=== PATIENT | male | born 1945 | race Caucasian/White ===

== ENCOUNTER 2016-10-10 13:31 | Emergency (ER) | payer MEDICARE ==
--- NOTE | 2016-10-10 14:20 | ER Document Report ---
ED Medical Screen (RME) - General Chief Complaint: General Weakness Stated Complaint: WEAKNESS Mode of Arrival: Ambulatory Information source: Patient, Friend TRAVEL OUTSIDE OF THE [place] IN LAST 30 DAYS: No - HPI Onset: Other - 2 WEEKS Onset/Duration: Gradual Context: SUDDENLY STOPPED ALL OF HIS MEDS. Quality of pain: No pain - DENIES Associated Symptoms: Weakness, Other - VERY POOR APPETITE, SLEEPS A LOT, FATIGUES VERY QUICKLY. denies: Chest pain, Cough (productive), Leg swelling, Shortness of breath Exacerbated by: Other - ANY ACTIVITY Similar symptoms previously: No Recently seen / treated by doctor: Yes - THIS PAST WEEK, MEDS RE-STARTED. - Related Data Smoking: Non-smoker Allergies/Adverse Reactions: No Known Allergies Allergy (Verified 02/23/12 07:34) Home Medications: Current Home Medications Donepezil HCl [Aricept 5 mg Tablet] 5 mg PO DAILY 10/10/16 [History] Lovastatin [Mevacor] 20 mg PO DAILY 10/10/16 [History] Past Medical History - General Information source: Patient, Friend - Social History Lives with: Family - Past Medical History Cardiac Medical History: Reports: Hx Hypertension - meds x yrs Denies: Hx Coronary Artery Disease, Hx Heart Attack Pulmonary Medical History: Denies: Hx Asthma, Hx Bronchitis, Hx COPD, Hx Pneumonia Neurological Medical History: Denies: Hx Cerebrovascular Accident, Hx Seizures Endocrine Medical History: Denies: Hx Diabetes Mellitus Type 1, Hx Diabetes Mellitus Type 2 Renal/ Medical History: Denies: Hx Peritoneal Dialysis Malignancy Medical History: Reports None Musculoskeltal Medical History: Denies Hx Arthritis Psychiatric Medical History: Reports: Hx Dementia Past Surgical History: Reports: Hx Cardiac Surgery - valve replacement - Immunizations Hx Diphtheria, Pertussis, Tetanus Vaccination: No Review of Systems - Review of Systems Constitutional: See HPI EENT: No symptoms reported Cardiovascular: See HPI Respiratory: No symptoms reported Gastrointestinal: See HPI, Poor appetite, Poor fluid intake Musculoskeletal: No symptoms reported Physical Exam - Vital signs Vitals: Temp Pulse Resp BP Pulse Ox 98.2 F 93 16 128/73 H 93 10/10/16 13:36 10/10/16 13:36 10/10/16 13:36 10/10/16 13:36 10/10/16 13:36 Interpretation: Normal - General General appearance: Appears well, Alert In distress: None - HEENT Head: Normocephalic Eyes: Normal. No: Pale conjunctiva Conjunctiva: Normal Ears: Normal Nasal: Normal Mouth/Lips: Normal Mucous membranes: Normal Pharynx: Normal Neck: Normal - Respiratory Respiratory status: No respiratory distress - Cardiovascular Rhythm: Regular - Abdominal Inspection: Normal Distension: No distension - Extremities General upper extremity: Normal inspection General lower extremity: Normal inspection. No: Tender, Edema - Neurological Neuro grossly intact: Yes Cognition: Normal Orientation: AAOx4 - Psychological Associated symptoms: Normal affect, Normal mood - Skin Skin Temperature: Warm Skin Moisture: Dry Skin Color: Normal Skin Turgor: Elastic Course - Vital Signs Vital signs: Temp Pulse Resp BP Pulse Ox 97.8 F 93 16 156/72 H 94 10/10/16 19:39 10/10/16 13:36 10/10/16 19:39 10/10/16 19:39 10/10/16 19:39 - Laboratory Result Diagrams: 10/10/16 15:15 10/10/16 15:15 Laboratory results interpreted by me: 10/10/16 10/10/16 10/10/16 14:48 15:15 15:15 WBC 15.5 H Seg Neuts % (Manual) 85 H Lymphocytes % (Manual) 2 L Abs Neuts (Manual) 13.2 H Abs Lymphs (Manual) 0.3 L Abs Monocytes (Manual) 2.0 H Chloride 97 L BUN 31 H Glucose 206 H Magnesium 1.5 L Direct Bilirubin 0.5 H ALT 20 L Creatine Kinase 44 L CK-MB (CK-2) Lipase 327.0 H Urine Protein 100 H Urine Glucose (UA) >=500 H Urine Ketones 20 H Urine Urobilinogen 2.0 H 10/10/16 15:15 WBC Seg Neuts % (Manual) Lymphocytes % (Manual) Abs Neuts (Manual) Abs Lymphs (Manual) Abs Monocytes (Manual) Chloride BUN Glucose Magnesium Direct Bilirubin ALT Creatine Kinase CK-MB (CK-2) 5.15 H Lipase Urine Protein Urine Glucose (UA) Urine Ketones Urine Urobilinogen Doctor's Discharge - Discharge Clinical Impression: pneumonia, hypomagnesemia, pulmonary mass and effusion Condition: Stable Disposition: HOME, SELF-CARE Additional Instructions: take all medications as prescribed keep all follow up appointments return to the nearest emergency department for worsening symptoms or for other medical concerns Prescriptions: Albuterol Sulfate [Ventolin HFA MDI 18 GM] 1 - 2 puff IH Q4H PRN #1 mdi PRN Reason: Levofloxacin [Levaquin 750 mg Tablet] 750 mg PO DAILY #10 tab Forms: Parent Work Note Referrals: OUMOU SALAZAR FNP-C [Primary Care Provider] - Follow up as needed
--- NOTE | 2016-10-10 15:06 | ER Document Report ---
ED General - General Chief Complaint: General Weakness Stated Complaint: WEAKNESS Time seen by provider: 15:05 Mode of Arrival: Ambulatory Information source: Patient Notes: This is a 71-year-old man who presents to the emergency room with increased fatigue, tiredness, decreased energy over the last 2 weeks. Patient does have a history of hypertension, diabetes, dyslipidemia and valve replacement (on Plavix). TRAVEL OUTSIDE OF THE [place] IN LAST 30 DAYS: No - HPI Onset: Just prior to arrival Onset/Duration: Gradual Quality of pain: No pain Severity: None Pain Level: Denies Associated symptoms: None Exacerbated by: Denies Relieved by: Denies Similar symptoms previously: No Recently seen / treated by doctor: No - Related Data Allergies/Adverse Reactions: No Known Allergies Allergy (Verified 02/23/12 07:34) Home Medications: Current Home Medications Donepezil HCl [Aricept 5 mg Tablet] 5 mg PO DAILY 10/10/16 [History] Lovastatin [Mevacor] 20 mg PO DAILY 10/10/16 [History] Past Medical History - General Information source: Patient, Friend - Social History Smoking Status: Never Smoker Cigarette use (# per day): No Chew tobacco use (# tins/day): No Frequency of alcohol use: None Drug Abuse: None Lives with: Family Family History: Reviewed & Not Pertinent Patient has suicidal ideation: No Patient has homicidal ideation: No - Past Medical History Cardiac Medical History: Reports: Hx Hypertension - meds x yrs Denies: Hx Coronary Artery Disease, Hx Heart Attack Pulmonary Medical History: Denies: Hx Asthma, Hx Bronchitis, Hx COPD, Hx Pneumonia Neurological Medical History: Denies: Hx Cerebrovascular Accident, Hx Seizures Endocrine Medical History: Denies: Hx Diabetes Mellitus Type 1, Hx Diabetes Mellitus Type 2 Renal/ Medical History: Denies: Hx Peritoneal Dialysis Malignancy Medical History: Reports None Musculoskeltal Medical History: Denies Hx Arthritis Psychiatric Medical History: Reports: Hx Dementia Past Surgical History: Reports: Hx Cardiac Surgery - valve replacement - Immunizations Hx Diphtheria, Pertussis, Tetanus Vaccination: No Review of Systems - Review of Systems Constitutional: See HPI EENT: No symptoms reported Cardiovascular: No symptoms reported Respiratory: No symptoms reported Gastrointestinal: No symptoms reported Genitourinary: No symptoms reported Male Genitourinary: No symptoms reported Musculoskeletal: No symptoms reported Skin: No symptoms reported Hematologic/Lymphatic: No symptoms reported Neurological/Psychological: See HPI Physical Exam - Vital signs Vitals: Temp Pulse Resp BP Pulse Ox 98.2 F 93 16 128/73 H 93 10/10/16 13:36 10/10/16 13:36 10/10/16 13:36 10/10/16 13:36 10/10/16 13:36 Notes: Physical exam: GENERAL: 71-year-old man, alert, oriented, no acute distress HEAD: Atraumatic, normocephalic. EYES: Pupils equal round and reactive to light, extraocular movements intact, sclera anicteric, conjunctiva are normal. ENT: TMs normal, nares patent, oropharynx clear without exudates. Moist mucous membranes. NECK: Normal range of motion, supple without lymphadenopathy or JVD. LUNGS: Breath sounds clear to auscultation bilaterally and equal. No wheezes rales or rhonchi. HEART: Regular rate and rhythm without murmurs, rubs or gallops. ABDOMEN: Soft, normoactive bowel sounds. No tenderness to palpation. No guarding, no rebound. No masses appreciated. Back: Clear Rectal: Prostate normal size, brown stool, sent for study EXTREMITIES: Normal range of motion, no pitting or edema. No clubbing or cyanosis. NEUROLOGICAL: Cranial nerves II through XII grossly intact. Normal speech, normal gait. PSYCH: Normal mood, normal affect. SKIN: Warm, Dry, normal turgor, no rashes or lesions noted. Course - Vital Signs Vital signs: Temp Pulse Resp BP Pulse Ox 97.8 F 93 16 156/72 H 94 10/10/16 19:39 10/10/16 13:36 10/10/16 19:39 10/10/16 19:39 10/10/16 19:39 - Laboratory Result Diagrams: 10/10/16 15:15 10/10/16 15:15 Laboratory results interpreted by me: 10/10/16 10/10/16 10/10/16 14:48 15:15 15:15 WBC 15.5 H Seg Neuts % (Manual) 85 H Lymphocytes % (Manual) 2 L Abs Neuts (Manual) 13.2 H Abs Lymphs (Manual) 0.3 L Abs Monocytes (Manual) 2.0 H Chloride 97 L BUN 31 H Glucose 206 H Magnesium 1.5 L Direct Bilirubin 0.5 H ALT 20 L Creatine Kinase 44 L CK-MB (CK-2) Lipase 327.0 H Urine Protein 100 H Urine Glucose (UA) >=500 H Urine Ketones 20 H Urine Urobilinogen 2.0 H 10/10/16 15:15 WBC Seg Neuts % (Manual) Lymphocytes % (Manual) Abs Neuts (Manual) Abs Lymphs (Manual) Abs Monocytes (Manual) Chloride BUN Glucose Magnesium Direct Bilirubin ALT Creatine Kinase CK-MB (CK-2) 5.15 H Lipase Urine Protein Urine Glucose (UA) Urine Ketones Urine Urobilinogen - Diagnostic Test Radiology reviewed: Image reviewed, Reports reviewed - CT of the chest shows pleural effusion possible mass - EKG Interpretation by Me Rate: Normal - EKG shows normal sinus rhythm with a ventricular rate of 90, right bundle branch block which is old, no acute ST-T wave changes. Rhythm: NSR Discharge - Discharge Clinical Impression: pneumonia, hypomagnesemia, pulmonary mass and effusion Condition: Stable Disposition: HOME, SELF-CARE Admitting Provider: Hospitalist - Dr. Zelaya Unit Admitted: IMCU Additional Instructions: take all medications as prescribed keep all follow up appointments return to the nearest emergency department for worsening symptoms or for other medical concerns Prescriptions: Albuterol Sulfate [Ventolin HFA MDI 18 GM] 1 - 2 puff IH Q4H PRN #1 mdi PRN Reason: Levofloxacin [Levaquin 750 mg Tablet] 750 mg PO DAILY #10 tab Forms: Parent Work Note Referrals: OUMOU SALAZAR FNP-C [Primary Care Provider] - Follow up as needed
[2016-10-10 15:17] LABS: APPEARANCE,URINE SLIGHTLY-CLOUDY; BILIRUBIN,URINE NEGATIVE (NEGATIVE); GLUCOSE, URINE >=500 mg/dL (NEGATIVE); KETONES,URINE 20 mg/dL (NEGATIVE); LEUKOCYTE ESTERASE,URINE NEGATIVE (NEGATIVE); NITRITE,URINE NEGATIVE (NEGATIVE); PROTEIN,URINE 100 mg/dL (NEGATIVE); URINE SPECIFIC GRAVITY 1.032
[2016-10-10 15:28] LABS: HEMATOCRIT 43.6 % (37.9-51.0); HEMOGLOBIN 14.7 g/dL (13.5-17.0); HGB HCT DIFFERENCE 0.5; MEAN CORPUSCULAR HEMOGLOBIN 30.8 pg (27.0-33.4); MEAN CORPUSCULAR HGB CONC 33.6 g/dL (32.0-36.0); MEAN CORPUSCULAR VOLUME 92 fl (80-97); RED BLOOD COUNT 4.76 10^6/uL (4.35-5.55); RED CELL DISTRIBUTION WIDTH 12.1 % (11.5-14.0); WHITE BLOOD COUNT 15.5 10^3/uL (4.0-10.5)
[2016-10-10 15:46] LABS: ALANINE AMINOTRANSFERASE 20 U/L (21-72); ALBUMIN 3.8 g/dL (3.5-5.0); ALKALINE PHOSPHATASE 102 U/L (38-126); ANION GAP 18 (5-19); ASPARTATE AMINO TRANSFERASE 21 U/L (17-59); BILIRUBIN,DIRECT 0.5 mg/dL (0.0-0.4); BLOOD UREA NITROGEN 31 mg/dL (7-20); CALCIUM 9.8 mg/dL (8.4-10.2); CARBON DIOXIDE 24 mmol/L (22-30); CHLORIDE 97 mmol/L (98-107); CREATINE KINASE 44 U/L (55-170); CREATININE RESULT 1.16 mg/dL (0.52-1.25); GLUCOSE 206 mg/dL (75-110); MAGNESIUM 1.5 mg/dL (1.6-2.3); POTASSIUM 4.9 mmol/L (3.6-5.0); SODIUM 138.5 mmol/L (137-145)
[2016-10-10 15:53] LABS: BASOPHILS % (MANUAL) 0 % (0-2); EOSINOPHILS % (MANUAL) 0 % (0-6); LYMPHOCYTES % (MANUAL) 2 % (13-45); TOTAL CELLS COUNTED 100
[2016-10-10] MEDS ORDERED: NORMAL SALINE 1000 ML 1,000 ML IV PRN (15:57)
[2016-10-10 15:58] LABS: CREATINE KINASE MB 5.15 ng/mL (<4.55)
[2016-10-10 16:00] LABS: TROPONIN I < 0.012 ng/mL
[2016-10-10] MEDS: MAGNESIUM SULFATE/D5W 100 ML IV SCH ×2 (16:29→17:59)
[2016-10-10] MEDS ORDERED: LEVOFLOXACIN 750 MG/D5W RTU 150 ML IV ONE (17:14)
[2016-10-10] MEDS ORDERED: CEFTRIAXONE 1 GM/D5W RTU 50 ML IV ONE (17:15)
--- NOTE | 2016-10-10 18:11 | PDOC CONSULTATION ---
Consultation Consult Date: 10/10/16 Attending physician:: FELIPE LAWTON History of Present Illness Admission Date/PCP: 10/10/16 17:40 ADRIANA LEHMAN History of Present Illness: ARIANA LOVE III is a 71 year old male with a history of hypertension, hyperlipidemia, diabetes mellitus, dementia who presents to the ER on the company of his son with reports of fatigue. Son reports some vague complaints of being tired more than normal and vomiting was approximately for 5 days ago. He has some ongoing dementia and it was realized approximately one month ago that he had not been taking his medications. As such, his son has moved in with him and has been ensuring that he takes his home medications. He's lost approximately 30 pounds in the last year and perhaps 15 pounds within last month. Patient is an unreliable historian and is unable to provide me with much in the way of any history. Currently, patient reports that although feeling tired he has no specific complaint. Past Medical History Cardiac Medical History: Reports: Hypertension - meds x yrs, Heart Murmur, Other - TAVR Denies: Coronary Artery Disease, Myocardial Infarction Pulmonary Medical History: Denies: Asthma, Bronchitis, Chronic Obstructive Pulmonary Disease (COPD), Pneumonia Neurological Medical History: Denies: Seizures Endocrine Medical History: Reports: Diabetes Mellitus Type 2 Denies: Diabetes Mellitus Type 1 Malignancy Medical History: Reports: None Musculoskeltal Medical History: Denies: Arthritis Psychiatric Medical History: Reports: Dementia Hematology: Denies: Anemia Past Surgical History Past Surgical History: Reports: Tonsillectomy, Valve Replacement Social History Lives with: Family Smoking Status: Former Smoker Cigarettes Packs Per Day: 1 Number of Years Smokin Frequency of Alcohol Use: None Hx Recreational Drug Use: No Hx Prescription Drug Abuse: No - Advance Directive Surrogate healthcare decision maker:: Children Family History Family History: None - Unable to obtain due to dementia, Reviewed & Not Pertinent Parental Family History Reviewed: Yes Children Family History Reviewed: Yes Sibling(s) Family History Reviewed.: Yes Medication/Allergy Home Medications: Aspirin [Aspirin EC] 81 mg PO QHS 02/23/12 Clopidogrel Bisulfate [Clopidogrel] 75 mg PO DAILY 02/23/12 Lisinopril [Prinivil 10 mg Tablet] 20 mg PO DAILY 02/23/12 Metformin HCl 1,000 mg PO BID 02/23/12 Metoprolol Tartrate [Lopressor 25 mg Tablet] 25 mg PO BID 02/23/12 Tamsulosin HCl 0.4 mg PO DAILY 02/23/12 Albuterol Sulfate [Ventolin HFA MDI 18 GM] 1 - 2 puff IH Q4H PRN #1 mdi Donepezil HCl [Aricept 5 mg Tablet] 5 mg PO DAILY 10/10/16 Levofloxacin [Levaquin 750 mg Tablet] 750 mg PO DAILY #10 tab 10/10/16 Lovastatin [Mevacor] 20 mg PO DAILY 10/10/16 Allergies/Adverse Reactions: No Known Allergies Allergy (Verified 02/23/12 07:34) Review of Systems Constitutional: PRESENT: fatigue, weakness, weight loss. ABSENT: chills, fever( s), headache(s), weight gain Eyes: ABSENT: visual disturbances Ears: ABSENT: hearing changes Cardiovascular: ABSENT: chest pain, dyspnea on exertion, edema, orthropnea, palpitations Respiratory: ABSENT: cough, dyspnea, hemoptysis, sputum Gastrointestinal: ABSENT: abdominal pain, constipation, diarrhea, dysphagia, heartburn, hematemesis, hematochezia, melena, nausea, vomiting Genitourinary: ABSENT: dysuria, hematuria Musculoskeletal: ABSENT: joint swelling Integumentary: ABSENT: rash, wounds Neurological: ABSENT: abnormal gait, abnormal speech, confusion, dizziness, focal weakness, syncope Psychiatric: ABSENT: anxiety, depression, homidical ideation, suicidal ideation Endocrine: ABSENT: cold intolerance, heat intolerance, polydipsia, polyuria Hematologic/Lymphatic: ABSENT: easy bleeding, easy bruising Physical Exam Vital Signs: Temp Pulse Resp BP Pulse Ox 98.2 F 93 16 128/73 H 93 10/10/16 13:36 10/10/16 13:36 10/10/16 13:36 10/10/16 13:36 10/10/16 13:36 General appearance: PRESENT: no acute distress, cooperative, well-developed, well-nourished Head exam: PRESENT: atraumatic, normocephalic Eye exam: PRESENT: conjunctiva pink, EOMI, PERRLA. ABSENT: conjunctival injection, scleral icterus Ear exam: PRESENT: normal external ear exam Mouth exam: PRESENT: dry mucosa, tongue midline Neck exam: ABSENT: JVD, tracheal deviation Respiratory exam: PRESENT: crackles - Right midlung, decreased breath sounds - 2 right midlung, prolonged expiratory phas, symmetrical, unlabored. ABSENT: rales, rhonchi, tachypnea, wheezes Cardiovascular exam: PRESENT: clicks, RRR, +S1, +S2. ABSENT: diastolic murmur, gallop, rubs, systolic murmur Pulses: PRESENT: normal dorsalis pedis pul Vascular exam: PRESENT: normal capillary refill GI/Abdominal exam: PRESENT: normal bowel sounds, soft. ABSENT: distended, firm , guarding, mass, Don's sign, organolmegaly, rebound, tenderness Rectal exam: PRESENT: deferred Extremities exam: PRESENT: full ROM. ABSENT: calf tenderness, clubbing, pedal edema Neurological exam: PRESENT: alert, awake, oriented to person, oriented to place , oriented to situation, CN II-XII grossly intact. ABSENT: oriented to time, motor sensory deficit Psychiatric exam: PRESENT: appropriate affect, normal mood. ABSENT: homicidal ideation, suicidal ideation Skin exam: PRESENT: dry, intact, warm. ABSENT: cyanosis, rash Results Impressions: Chest X-Ray 10/10/16 15:07 IMPRESSION: There are small areas of patchy airspace opacities in the right lung base. No significant effusion. Head CT 10/10/16 15:07 IMPRESSION: 1. Atrophy. 2. 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 Chest CT 10/10/16 16:29 IMPRESSION: There is a 2.1 cm soft tissue density in the anterior right infrahilar portion of the right lower lobe along the diaphragmatic surface, possibly partially vascular. There are scattered areas of subpleural nodularity and chronic interstitial thickening with small areas of fibrosis present anteriorly in the upper lobe. There is also a moderate layering right pleural effusion which appears to have been subpulmonic on the earlier radiograph. Mediastinal lymphadenopathy with a dominant 2.4 cm node in the subcarinal station. Correlate for history of prior radiation treatment and/or malignancy. No comparison CT available to assess for changes. Assessment & Plan - Diagnosis (1) Pleural effusion Is this a current diagnosis for this admission?: YesPlan: Patient will need to be off Plavix minimum 5 days before this can be evaluated. (2) Lung mass Is this a current diagnosis for this admission?: YesPlan: Patient has 2.1 cm right lower lobe lung mass with a 2.4 cm carinal lymph node. Patient prefers to have this worked up as an outpatient. He does not feel that he may want intervention for this. (3) Mild dehydration Is this a current diagnosis for this admission?: YesPlan: Has been given normal saline in the emergency department (4) Diabetes mellitus Qualifiers: Diabetes mellitus type: type 2 Diabetes mellitus complication status: with unspecified complications Diabetes mellitus terminal superintendent insulin use: without detention use Qualified Code(s): E11.8 - Type 2 diabetes mellitus with unspecified complications Is this a current diagnosis for this admission?: Yes (5) H/O aortic valve replacement Is this a current diagnosis for this admission?: Yes (6) Dementia Qualifiers: Dementia type: Alzheimer's disease Alzheimer's disease onset: unspecified onset Dementia behavioral disturbance: without behavioral disturbance Qualified Code(s): G30.9 - Alzheimer's disease, unspecified; F02.80 - Dementia in other diseases classified elsewhere without behavioral disturbance Is this a current diagnosis for this admission?: Yes (7) UTI (urinary tract infection) Qualifiers: Urinary tract infection type: acute cystitis Hematuria presence: without hematuria Qualified Code(s): N30.00 - Acute cystitis without hematuria Is this a current diagnosis for this admission?: YesPlan: We'll send for culture and give patient prescription of Levaquin. He is advised to follow-up with his primary care physician for results of the culture. - Time Time Spent: 50 to 70 Minutes Medications reviewed and adjusted accordingly: Yes Anticipated discharge: Home - Inpatient Certification Based on my medical assessment, after consideration of the patient's comorbidities, presenting symptoms, or acuity I expect that the services needed warrant INPATIENT care.: No I certify that my determination is in accordance with my understanding of Medicare's requirements for reasonable and necessary INPATIENT services [42 CFR 412.3e].: No - Plan Summary Plan Summary: Patient's son has been advised to take him immediately to his primary care physician tomorrow and to return for any worsening symptoms or for any other medical concerns.
[2016-10-10] MEDS ORDERED: LEVOFLOXACIN 750 MG TABLET PO ONE (18:30)
[2016-10-10 19:40] VITALS: BP 156/72
--- NOTE | 2016-10-10 22:53 | EKG REPORT ---
SEVERITY:- ABNORMAL ECG - SINUS RHYTHM PROBABLE LEFT ATRIAL ABNORMALITY RIGHT BUNDLE BRANCH BLOCK : Confirmed by: Jenniffer Adams 10-Oct-2016 22:51:48
== END 2016-10-10 19:42 | disposition home or self-care (01) ==
LOC: ER 13:31 → EH 17:40 → UNDOADMIN 17:40 → ER 19:42
DX: J18.9 Pneumonia, unspecified organism (principal); E83.42 Hypomagnesemia; R91.8 Other nonspecific abnormal finding of lung field; R53.1 Weakness; R53.83 Other fatigue; I10 Essential (primary) hypertension; E11.9 Type 2 diabetes mellitus without complications; Z95.2 Presence of prosthetic heart valve; Z79.02 Long term (current) use of antithrombotics/antiplatelets
CPT/HCPCS: 93005; 99285; 96365; 96366; 36415; 82553; 82550; 83690; 83735; 84443; 85025; 82272; 80053; 81001; 84484; 71020; 70450; 71250; 93010; J3475; J7030; A9270

== ENCOUNTER 2016-10-14 15:41 | Inpatient (IN) | payer MEDICARE ==
[2016-10-14] MEDS ORDERED: NORMAL SALINE 1000 ML 500 ML IV ONE (16:12)
[2016-10-14 16:32] LABS: HEMATOCRIT 41.3 % (37.9-51.0); HEMOGLOBIN 13.6 g/dL (13.5-17.0); HGB HCT DIFFERENCE -0.5; MEAN CORPUSCULAR HEMOGLOBIN 30.6 pg (27.0-33.4); MEAN CORPUSCULAR VOLUME 93 fl (80-97); RED BLOOD COUNT 4.45 10^6/uL (4.35-5.55); RED CELL DISTRIBUTION WIDTH 12.2 % (11.5-14.0); WHITE BLOOD COUNT 17.5 10^3/uL (4.0-10.5)
[2016-10-14 16:45] LABS: ALANINE AMINOTRANSFERASE 15 U/L (21-72); ALBUMIN 3.3 g/dL (3.5-5.0); ALKALINE PHOSPHATASE 84 U/L (38-126); ANION GAP 17 (5-19); ASPARTATE AMINO TRANSFERASE 28 U/L (17-59); BILIRUBIN,DIRECT 0.4 mg/dL (0.0-0.4); BILIRUBIN,TOTAL 0.8 mg/dL (0.2-1.3); BLOOD UREA NITROGEN 43 mg/dL (7-20); CALCIUM 9.4 mg/dL (8.4-10.2); CARBON DIOXIDE 24 mmol/L (22-30); CHLORIDE 94 mmol/L (98-107); CREATINE KINASE 85 U/L (55-170); CREATININE RESULT 1.72 mg/dL (0.52-1.25); GLUCOSE 256 mg/dL (75-110); POTASSIUM 4.5 mmol/L (3.6-5.0); SODIUM 134.5 mmol/L (137-145); TOTAL PROTEIN 5.9 g/dL (6.3-8.2)
[2016-10-14 16:48] LABS: BASOPHILS % (MANUAL) 0 % (0-2); EOSINOPHILS % (MANUAL) 1 % (0-6); LYMPHOCYTES % (MANUAL) 3 % (13-45); TOTAL CELLS COUNTED 100
[2016-10-14 16:50] LABS: TOXIC GRANULATION SLIGHT
[2016-10-14 16:53] LABS: PARTIAL THROMBOPLASTIN TIME 34.1 SEC (23.5-35.8)
[2016-10-14 16:56] LABS: CREATINE KINASE MB 9.12 ng/mL (<4.55)
[2016-10-14 17:01] LABS: TROPONIN I 1.32 ng/mL
--- NOTE | 2016-10-14 18:22 | ER Document Report ---
ED General - General Chief Complaint: General Weakness Stated Complaint: FATIGUE,HICCUPS,SHORTNESS OF BREATH Time seen by provider: 16:00 Mode of Arrival: Medic Information source: Relative Notes: 71-year-old male with seborrheic history of worsening weakness and dyspnea on exertion to the point that over the past 3 days he's been unable to cross the room without getting too short of breath continue. Patient has some dementia and was seen in the emergency department October 10 found to have a right pleural effusion and possible right pneumonia and was discharged on Levaquin at patient request. Family was in agreement with that. They report has gotten worse instead of better since discharge but he has been taking the Levaquin as prescribed. He has not taken his Plavix and about 5 days with family reports he schedule have a thoracentesis on the right next week. Elsewhere he's had initial blood work done at Dr. Cole's office in anticipation of possible cancers in etiology for his effusion. Patient has no specific complaints now. Family reports to their knowledge she's had no fever, cough, vomiting, or complaints of pain. They've not noticed any swelling to extremities. They think his lost at least 10 pounds of weight in the past few weeks. Physical Exam: General: Alert, appears well. HEENT: Normocephalic. Atraumatic. PERRLA. Extraocular movements intact. Oropharynx clear. Neck: Supple. Non-tender. No JVD no carotid bruits Respiratory: Diminished breath sounds in right base rhonchi bilaterally no accessory muscle use nontender Cardiovascular: Regular rate and rhythm. 2/6 systolic murmur Abdominal: Normal Inspection. Soft, non-tender. No distension. Normal Bowel Sounds. Back: Non-tender. No deformity or step off. Extremities all warm to plus pulses trace pedal edema no cyanosis Neurological: Oriented to person and place. Strength 5 over 5 and equal both upper extremities are function 5 out of 5 and equal both lower extremities speech clear answers simple questions appropriately Psychological: Normal affect. Normal Mood. Skin: Warm. Dry. Normal color. TRAVEL OUTSIDE OF THE [place] IN LAST 30 DAYS: No - Related Data Allergies/Adverse Reactions: No Known Allergies Allergy (Verified 10/14/16 16:02) Past Medical History - Social History Smoking Status: Never Smoker Chew tobacco use (# tins/day): No Frequency of alcohol use: None Drug Abuse: None Family History: Reviewed & Not Pertinent Patient has suicidal ideation: No Patient has homicidal ideation: No - Past Medical History Cardiac Medical History: Reports: Hx Hypertension - meds x yrs, Hx Heart Murmur Denies: Hx Coronary Artery Disease, Hx Heart Attack Pulmonary Medical History: Denies: Hx Asthma, Hx Bronchitis, Hx COPD, Hx Pneumonia Neurological Medical History: Denies: Hx Cerebrovascular Accident, Hx Seizures Endocrine Medical History: Denies: Hx Diabetes Mellitus Type 1, Hx Diabetes Mellitus Type 2 Renal/ Medical History: Denies: Hx Peritoneal Dialysis Musculoskeltal Medical History: Denies Hx Arthritis Psychiatric Medical History: Reports: Hx Dementia Past Surgical History: Reports: Hx Cardiac Surgery - valve replacement, Hx Tonsillectomy, Hx Valve Replacement - Porcine aortic valve replacement - Immunizations Hx Diphtheria, Pertussis, Tetanus Vaccination: No Review of Systems - Review of Systems Constitutional: Malaise, Weakness. denies: Fever EENT: denies: Ear pain, Nose pain, Throat pain Cardiovascular: Dyspnea. denies: Chest pain, Syncope Respiratory: Short of breath. denies: Cough, Wheezing Gastrointestinal: denies: Abdominal pain, Diarrhea, Nausea, Vomiting Genitourinary: denies: Burning Musculoskeletal: denies: Back pain, Leg swelling Skin: denies: Rash Hematologic/Lymphatic: denies: Swollen glands Neurological/Psychological: Weakness - Generalized. denies: Numbness Physical Exam - Vital signs Vitals: Pulse Resp BP Pulse Ox 99 16 88/47 L 98 10/14/16 15:50 10/14/16 15:50 10/14/16 15:50 10/14/16 15:50 Course - Re-evaluation Re-evalutation: 10/14/16 18:21 There attempted outpatient therapy without success this patient's gotten weaker and also appears to have some volume depletion and acute renal failure. Patient was hypotensive on arrival but this has responded well IV fluids and aggressive fluid resuscitation will be problematic as he does have an elevated B natruretic peptide. His troponin is positive but I believe that's related to his hypotension and acute renal failure and does not indicate an acute PA. I discussed case with Dr. Zelaya hospitalist service and she'll be admitting patient 10/14/16 18:23 Had extensive discussions with family regarding CODE STATUS and they wish patient to be full code now though they are amenable to revisiting that was patient had further workup and I have clarity on what problems exactly they're dealing with. Total critical care time excluding billable procedures is 40 minutes - Vital Signs Vital signs: Temp Pulse Resp BP Pulse Ox 97.6 F 99 18 105/58 L 94 10/14/16 16:55 10/14/16 15:50 10/14/16 17:01 10/14/16 17:01 10/14/16 17:01 - Laboratory Result Diagrams: 10/14/16 16:15 10/14/16 16:15 Laboratory results interpreted by me: 10/14/16 10/14/16 10/14/16 16:15 16:15 16:15 WBC 17.5 H Plt Count 456 H Seg Neuts % (Manual) 81 H Lymphocytes % (Manual) 3 L Monocytes % (Manual) 15 H Abs Neuts (Manual) 14.2 H Abs Monocytes (Manual) 2.6 H Sodium 134.5 L Chloride 94 L BUN 43 H Creatinine 1.72 H Est GFR ( Amer) 47 L Est GFR (Non-Af Amer) 39 L Glucose 256 H ALT 15 L CK-MB (CK-2) 9.12 H NT-Pro-B Natriuret Pep Total Protein 5.9 L Albumin 3.3 L 10/14/16 16:15 WBC Plt Count Seg Neuts % (Manual) Lymphocytes % (Manual) Monocytes % (Manual) Abs Neuts (Manual) Abs Monocytes (Manual) Sodium Chloride BUN Creatinine Est GFR ( Amer) Est GFR (Non-Af Amer) Glucose ALT CK-MB (CK-2) NT-Pro-B Natriuret Pep 2140 H Total Protein Albumin - Diagnostic Test Radiology reviewed: Image reviewed, Reports reviewed - EKG Interpretation by Me Additional EKG results interpreted by me: 10/14/16 18:16 EKG reviewed by myself sinus rhythm at 89 right bundle-branch block no acute changes no significant change from prior EKG Discharge - Discharge Clinical Impression: Pleural effusion, Elevated troponin Pneumonia Qualifiers: Pneumonia type: due to unspecified organism Laterality: right Lung location: unspecified part of lung Qualified Code(s): J18.9 - Pneumonia, unspecified organism Acute renal failure Qualifiers: Acute renal failure type: unspecified Qualified Code(s): N17.9 - Acute kidney failure, unspecified Hypotension Qualifiers: Hypotension type: unspecified hypotension type Qualified Code(s): I95.9 - Hypotension, unspecified Condition: Serious Disposition: ADMITTED INPATIENT Admitting Provider: Hospitalist Unit Admitted: [facility]
[2016-10-14] MEDS ORDERED: ONDANSETRON HCL INJ/PF 4 MG/2 ML SDV IV PRN (18:45)
[2016-10-14] MEDS ORDERED: IPRATROPIUM/ALBUTEROL 0.5-2.5 MG/3 ML AMPUL NEB PRN (18:45)
[2016-10-14] MEDS ORDERED: ACETAMINOPHEN 325 MG TABLET PO PRN (18:45)
[2016-10-14] MEDS ORDERED: MAGNESIUM HYDROXIDE SUSP 30 ML UDCUP PO PRN (18:45)
[2016-10-14] MEDS ORDERED: METOPROLOL TARTRATE PF/INJ 5 MG/5 ML SDV IV PRN (18:53)
[2016-10-14] MEDS ORDERED: NORMAL SALINE 1000 ML 2,000 ML IV ONE (19:06)
--- NOTE | 2016-10-14 19:19 | PDOC H&P ---
History of Present Illness Admission Date/PCP: 10/14/16 18:32 History of Present Illness: ARIANA LOVE III is a 71 year old male for a history of hypertension, hyperlipidemia, diabetes mellitus, and multiple malignancies dementia who presents to the ER on the company of his son and daughter with reports of fatigue and shortness of breath. History is primarily obtained from the son and daughter who are at bedside. I saw this patient in the emergency department on 10/10/2016 at which time I offered him admission. At that time, they declined in favor of outpatient workup. Patient returns after not eating or drinking for 2 days. Patient has not been eating or drinking for 2 days. He 's had diarrhea for several months. He's also had increasing dyspnea on exertion. He reports Plavix was stopped 4 days ago. In the emergency room recently been acute renal failure with an elevated troponin. He is referred to hospital service for evaluation of these complaints. Past Medical History Past Medical History: Hypertension, hyperlipidemia, diabetes mellitus, basal cell carcinoma the back, melanoma of the foot, prostate cancer, dementia Cardiac Medical History: Reports: Hypertension - meds x yrs, Heart Murmur Denies: Coronary Artery Disease, Myocardial Infarction Pulmonary Medical History: Denies: Asthma, Bronchitis, Chronic Obstructive Pulmonary Disease (COPD), Pneumonia Neurological Medical History: Denies: Seizures Endocrine Medical History: Denies: Diabetes Mellitus Type 1, Diabetes Mellitus Type 2 Musculoskeltal Medical History: Denies: Arthritis Psychiatric Medical History: Reports: Dementia Hematology: Denies: Anemia Past Surgical History Past Surgical History: Reports: Carotid Endarterectomy, Tonsillectomy, Valve Replacement - Porcine aortic valve replacement Social History Smoking Status: Former Smoker Cigarettes Packs Per Day: 1 Number of Years Smokin Frequency of Alcohol Use: None Hx Recreational Drug Use: No Hx Prescription Drug Abuse: No - Advance Directive Resuscitation Status: Full Code Surrogate healthcare decision maker:: Zoey Romero, daughter Family History Family History: CAD Parental Family History Reviewed: Yes Children Family History Reviewed: Yes Sibling(s) Family History Reviewed.: Yes Medication/Allergy Allergies/Adverse Reactions: No Known Allergies Allergy (Verified 10/14/16 16:02) Review of Systems ROS unobtainable: Due to mental status Physical Exam Vital Signs: Temp Pulse Resp BP Pulse Ox 97.6 F 99 20 109/65 96 10/14/16 16:55 10/14/16 15:50 10/14/16 18:47 10/14/16 18:47 10/14/16 18:47 General appearance: PRESENT: thin, well-developed, other - Pale, ill-appearing. ABSENT: well-nourished Head exam: PRESENT: atraumatic, normocephalic Eye exam: PRESENT: conjunctiva pink, EOMI, PERRLA. ABSENT: scleral icterus Ear exam: PRESENT: normal external ear exam Mouth exam: PRESENT: dry mucosa, tongue midline Neck exam: ABSENT: JVD, lymphadenopathy, thyromegaly, tracheal deviation Respiratory exam: PRESENT: chest wall tenderness, decreased breath sounds - Right lung right middle lobe, prolonged expiratory phas, symmetrical, unlabored. ABSENT: accessory muscle use, rales, retraction, rhonchi, tachypnea , wheezes Cardiovascular exam: PRESENT: RRR, +S1, +S2, systolic murmur. ABSENT: diastolic murmur, rubs Pulses: PRESENT: normal dorsalis pedis pul Vascular exam: PRESENT: pallor GI/Abdominal exam: PRESENT: normal bowel sounds, soft. ABSENT: distended, guarding, mass, organolmegaly, rebound, tenderness Rectal exam: PRESENT: deferred Extremities exam: PRESENT: full ROM. ABSENT: calf tenderness, clubbing, pedal edema Neurological exam: PRESENT: alert, awake, oriented to person, CN II-XII grossly intact. ABSENT: oriented to place, oriented to time, oriented to situation, motor sensory deficit Psychiatric exam: PRESENT: appropriate affect, normal mood. ABSENT: homicidal ideation, suicidal ideation Skin exam: PRESENT: dry, intact, pallor, other - cool. ABSENT: cyanosis, rash Results Impressions: Chest X-Ray 10/14/16 16:11 IMPRESSION: There is persistent patchy airspace disease in the right lung that does not show significant change. There is the suggestion of a small right pleural effusion Assessment & Plan - Diagnosis (1) Diarrhea Qualifiers: Diarrhea type: unspecified type Qualified Code(s): R19.7 - Diarrhea , unspecified Is this a current diagnosis for this admission?: YesPlan: Check a C. difficile. Started on Bacid. Stop metformin (2) Acute renal failure Qualifiers: Acute renal failure type: unspecified Qualified Code(s): N17.9 - Acute kidney failure, unspecified Is this a current diagnosis for this admission?: YesPlan: We'll give 2 L bolus and run saline at 150 an hour. Likely secondary to not eating or drinking. (3) Elevated troponin Is this a current diagnosis for this admission?: YesPlan: Multifactorial. Likely secondary to renal failure, sepsis, and hypotension. Will consult cardiology. (4) Hypotension Qualifiers: Hypotension type: unspecified hypotension type Qualified Code(s): I95.9 - Hypotension, unspecified Is this a current diagnosis for this admission?: YesPlan: This is likely secondary to not eating or drinking. Patient was also continuing to take his antihypertensives. (5) Pleural effusion Is this a current diagnosis for this admission?: YesPlan: We'll continue to hold Plavix and will discuss with IR the possibility of early intervention. (6) Pneumonia Qualifiers: Pneumonia type: due to unspecified organism Laterality: right Lung location: unspecified part of lung Qualified Code(s): J18.9 - Pneumonia, unspecified organism Is this a current diagnosis for this admission?: YesPlan: This is likely a postobstructive pneumonia with concern for gram-negative is. We will place patient on cefepime. Pending sputum culture (7) Dementia Qualifiers: Dementia type: Alzheimer's disease Alzheimer's disease onset: unspecified onset Dementia behavioral disturbance: without behavioral disturbance Qualified Code(s): G30.9 - Alzheimer's disease, unspecified; F02.80 - Dementia in other diseases classified elsewhere without behavioral disturbance Is this a current diagnosis for this admission?: YesPlan: Supportive care and Haldol (8) Diabetes mellitus Qualifiers: Diabetes mellitus type: type 2 Diabetes mellitus complication status: with unspecified complications Diabetes mellitus mcfp insulin use: without mcfp use Qualified Code(s): E11.8 - Type 2 diabetes mellitus with unspecified complications; Z79.4 - senior care (current) use of insulin Is this a current diagnosis for this admission?: YesPlan: Check hemoglobin A1c and stop metformin liberalized diet (9) H/O aortic valve replacement Is this a current diagnosis for this admission?: Yes (10) Lung mass Is this a current diagnosis for this admission?: YesPlan: Consulted Dr. Long (11) UTI (urinary tract infection) Qualifiers: Urinary tract infection type: acute cystitis Hematuria presence: without hematuria Qualified Code(s): N30.00 - Acute cystitis without hematuria Is this a current diagnosis for this admission?: YesPlan: Pending culture - Time Time Spent: 50 to 70 Minutes Medications reviewed and adjusted accordingly: Yes Anticipated discharge: Home - Inpatient Certification Based on my medical assessment, after consideration of the patient's comorbidities, presenting symptoms, or acuity I expect that the services needed warrant INPATIENT care.: Yes I certify that my determination is in accordance with my understanding of Medicare's requirements for reasonable and necessary INPATIENT services [42 CFR 412.3e].: Yes Medical Necessity: Need For IV Fluids, Need For Continuous Telemetry Monitoring , Need for IV Antibiotics, Need for Surgery Post Hospital 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
[2016-10-14] MEDS ORDERED: PHARMACY COMMUNICATION ORDER MC NR (19:30)
[2016-10-14] MEDS ORDERED: TAMSULOSIN HCL 0.4 MG CAP.SR.24H PO ONE (20:00)
[2016-10-14 20:15] LABS: APPEARANCE,URINE SLIGHTLY-CLOUDY; BILIRUBIN,URINE NEGATIVE (NEGATIVE); GLUCOSE, URINE 150 mg/dL (NEGATIVE); KETONES,URINE TRACE mg/dL (NEGATIVE); LEUKOCYTE ESTERASE,URINE NEGATIVE (NEGATIVE); NITRITE,URINE NEGATIVE (NEGATIVE); PROTEIN,URINE NEGATIVE (NEGATIVE); URINE SPECIFIC GRAVITY 1.018; UROBILINOGEN,URINE NEGATIVE mg/dL (<2.0)
[2016-10-14 21:07] LABS: CREATINE KINASE MB 7.25 ng/mL (<4.55); TROPONIN I 1.25 ng/mL
--- NOTE | 2016-10-14 21:20 | ER Document Report ---
ED Medical Screen (RME) - General Chief Complaint: General Weakness Stated Complaint: FATIGUE,HICCUPS,SHORTNESS OF BREATH Mode of Arrival: Medic Information source: Patient, Relative TRAVEL OUTSIDE OF THE [place] IN LAST 30 DAYS: No - HPI Onset: Last week Onset/Duration: Gradual Context: Patient was seen in this emergency department 4 days ago, found to have pneumonia and a low magnesium level. He has been treated as an outpatient with antibiotics, but has experienced increasing shortness of breath and weakness. Quality of pain: No pain Associated Symptoms: Chills, Cough (productive), Nausea, Shortness of breath, Weakness Exacerbated by: Other - ANY ACTIVITY Relieved by: Denies Similar symptoms previously: No Recently seen / treated by doctor: Yes - PAYAM Lemus, 10/10 - Related Data Smoking: Non-smoker Frequency of alcohol use: None Drug Abuse: None Allergies/Adverse Reactions: No Known Allergies Allergy (Verified 10/14/16 16:02) Home Medications: Current Home Medications Aspirin [Aspirin EC] 81 mg PO DAILY 10/14/16 [History] Clopidogrel Bisulfate [Plavix 75 mg Tablet] 75 mg PO DAILY 10/14/16 [History] Donepezil HCl [Aricept 5 mg Tablet] 5 mg PO QAM 10/14/16 [History] Lisinopril [Prinivil] 20 mg PO QAM 10/14/16 [History] Lovastatin [Altoprev] 20 mg PO QPM 10/14/16 [History] Metformin HCl [Glucophage] 500 mg PO Q12 10/14/16 [History] Metoprolol Tartrate [Lopressor 25 mg Tablet] 25 mg PO Q12 10/14/16 [History] Tamsulosin HCl [Flomax 0.4 mg Cap.sr] 0.4 mg PO QPM 10/14/16 [History] Past Medical History - General Information source: Patient, Relative, [facility] Records - Social History Chew tobacco use (# tins/day): No Frequency of alcohol use: None Drug Abuse: None Lives with: Family Family history: Reviewed & Not Pertinent - Past Medical History Cardiac Medical History: Reports: Hx Hypertension - meds x yrs, Hx Heart Murmur Denies: Hx Coronary Artery Disease, Hx Heart Attack Pulmonary Medical History: Denies: Hx Asthma, Hx Bronchitis, Hx COPD, Hx Pneumonia Neurological Medical History: Denies: Hx Cerebrovascular Accident, Hx Seizures Endocrine Medical History: Denies: Hx Diabetes Mellitus Type 1, Hx Diabetes Mellitus Type 2 Renal/ Medical History: Denies: Hx Peritoneal Dialysis Musculoskeltal Medical History: Denies Hx Arthritis Psychiatric Medical History: Reports: Hx Dementia Past Surgical History: Reports: Hx Cardiac Surgery - valve replacement, Hx Carotid Endarterectomy, Hx Tonsillectomy, Hx Valve Replacement - Porcine aortic valve replacement - Immunizations Hx Diphtheria, Pertussis, Tetanus Vaccination: No Review of Systems - Review of Systems Constitutional: Chills, Weakness EENT: No symptoms reported Cardiovascular: No symptoms reported Respiratory: Cough, Other - HICCUPS Gastrointestinal: Poor appetite Genitourinary: No symptoms reported Musculoskeletal: No symptoms reported Skin: No symptoms reported Neurological/Psychological: No symptoms reported Physical Exam - Vital signs Vitals: Pulse Resp BP Pulse Ox 99 16 88/47 L 98 10/14/16 15:50 10/14/16 15:50 10/14/16 15:50 10/14/16 15:50 Interpretation: Hypotensive, Tachycardic. No: Tachypneic - General General appearance: Alert In distress: None - HEENT Head: Normocephalic Eyes: Normal Conjunctiva: Normal Ears: Normal Nasal: Normal Mouth/Lips: Normal Mucous membranes: Dry Neck: Normal - Respiratory Respiratory status: No respiratory distress Breath sounds: Rhonchi - Cardiovascular Rhythm: Regular Heart sounds: Normal auscultation Murmur: No - Abdominal Distension: No distension - Back Back: Normal - Extremities General upper extremity: Normal inspection General lower extremity: Normal inspection. No: Tender, Edema - Neurological Neuro grossly intact: Yes Cognition: Normal Orientation: AAOx4 - Psychological Associated symptoms: Normal affect, Normal mood - Skin Skin Temperature: Warm Skin Moisture: Dry Skin Color: Normal Skin Turgor: Elastic Course - Vital Signs Vital signs: Temp Pulse Resp BP Pulse Ox 97.2 F 99 23 H 134/70 H 97 10/14/16 19:00 10/14/16 19:00 10/14/16 19:50 10/14/16 19:59 10/14/16 20:00 - Laboratory Result Diagrams: 10/14/16 16:15 10/14/16 16:15 Laboratory results interpreted by me: 10/14/16 10/14/16 10/14/16 16:15 16:15 16:15 WBC 17.5 H Plt Count 456 H Seg Neuts % (Manual) 81 H Lymphocytes % (Manual) 3 L Monocytes % (Manual) 15 H Abs Neuts (Manual) 14.2 H Abs Monocytes (Manual) 2.6 H Sodium 134.5 L Chloride 94 L BUN 43 H Creatinine 1.72 H Est GFR ( Amer) 47 L Est GFR (Non-Af Amer) 39 L Glucose 256 H ALT 15 L CK-MB (CK-2) 9.12 H NT-Pro-B Natriuret Pep Total Protein 5.9 L Albumin 3.3 L 10/14/16 16:15 WBC Plt Count Seg Neuts % (Manual) Lymphocytes % (Manual) Monocytes % (Manual) Abs Neuts (Manual) Abs Monocytes (Manual) Sodium Chloride BUN Creatinine Est GFR ( Amer) Est GFR (Non-Af Amer) Glucose ALT CK-MB (CK-2) NT-Pro-B Natriuret Pep 2140 H Total Protein Albumin Doctor's Discharge - Discharge Clinical Impression: Pleural effusion, Elevated troponin Pneumonia Qualifiers: Pneumonia type: due to unspecified organism Laterality: right Lung location: unspecified part of lung Qualified Code(s): J18.9 - Pneumonia, unspecified organism Acute renal failure Qualifiers: Acute renal failure type: unspecified Qualified Code(s): N17.9 - Acute kidney failure, unspecified Hypotension Qualifiers: Hypotension type: unspecified hypotension type Qualified Code(s): I95.9 - Hypotension, unspecified Condition: Serious Disposition: ADMITTED INPATIENT
[2016-10-14] MEDS: NORMAL SALINE 1000 ML 1,000 ML IV PRN ×2 (21:32→21:34)
[2016-10-14] MEDS ORDERED: CEFEPIME 2 GM/D5W RTU 2 GM/50 ML RTUPB IV SCH (22:00)
[2016-10-14] MEDS: HEPARIN SOD (PORCINE) 5,000 UNIT/ML 1 ML SYRINGE SUBCUT SCH (23:08)
[2016-10-14] MEDS: FAMOTIDINE 20 MG TABLET PO SCH (23:08)
[2016-10-15 02:38] LABS: CREATINE KINASE MB 7.1 ng/mL (<4.55)
[2016-10-15 02:45] LABS: TROPONIN I 1.06 ng/mL
[2016-10-15] MEDS: HEPARIN SOD (PORCINE) 5,000 UNIT/ML 1 ML SYRINGE SUBCUT SCH (06:18)
[2016-10-15 07:36] LABS: ABSOLUTE EOSINOPHILS # (AUTO) 0.1 10^3/uL (0.0-0.6); ABSOLUTE LYMPHOCYTES (AUTO) 0.7 10^3/uL (0.5-4.7); ABSOLUTE MONOCYTES (AUTO) 1.9 10^3/uL (0.1-1.4); ABSOLUTE NEUT (AUTO) 10.2 10^3/uL (1.7-8.2); BASOPHILS % (AUTO) 0.3 % (0-2); EOSINOPHILS % (AUTO) 0.4 % (0-6); HEMATOCRIT 36.9 % (37.9-51.0); HGB HCT DIFFERENCE -0.9; LYMPHOCYTES % (AUTO) 5.7 % (13-45); MEAN CORPUSCULAR HEMOGLOBIN 30.3 pg (27.0-33.4); MEAN CORPUSCULAR HGB CONC 32.4 g/dL (32.0-36.0); MEAN CORPUSCULAR VOLUME 94 fl (80-97); MONOCYTES % (AUTO) 14.9 % (3-13); RED BLOOD COUNT 3.95 10^6/uL (4.35-5.55); SEGMENTED NEUTROPHILS % (AUTO) 78.7 % (42-78)
[2016-10-15 07:48] LABS: PROTHROMBIN TIME 13.9 SEC (11.4-15.4)
[2016-10-15 07:49] LABS: PARTIAL THROMBOPLASTIN TIME 47.1 SEC (23.5-35.8)
[2016-10-15 07:51] LABS: ANION GAP 13 (5-19); BLOOD UREA NITROGEN 30 mg/dL (7-20); CALCIUM 8.6 mg/dL (8.4-10.2); CARBON DIOXIDE 21 mmol/L (22-30); CHLORIDE 103 mmol/L (98-107); CHOLESTEROL 91.45 mg/dL (0-200); CREATININE RESULT 1.05 mg/dL (0.52-1.25); Direct HDL 36 mg/dL (>40); GLUCOSE 159 mg/dL (75-110); POTASSIUM 4.1 mmol/L (3.6-5.0); SODIUM 137.1 mmol/L (137-145); TRIGLYCERIDES 93 mg/dL (<150)
[2016-10-15 08:04] LABS: CREATINE KINASE MB 6.89 ng/mL (<4.55); TROPONIN I 0.864 ng/mL
[2016-10-15 08:05] LABS: DIRECT LDL < 30 mg/dL (<100)
--- NOTE | 2016-10-15 08:18 | EKG REPORT ---
SEVERITY:- ABNORMAL ECG - SINUS RHYTHM RBBB AND LAFB : Confirmed by: Trent Farrar MD 15-Oct-2016 08:18:02
[2016-10-15] MEDS: MEGESTROL ACETATE SUSP 400 MG/10 ML UDCUP PO SCH (09:38)
[2016-10-15] MEDS: FAMOTIDINE 20 MG TABLET PO SCH ×2 (09:38→21:47)
[2016-10-15] MEDS ORDERED: NORMAL SALINE 1000 ML 1,000 ML IV PRN (10:08)
--- NOTE | 2016-10-15 12:13 | XCELERA REPORT ---
[address] [address] Transthoracic Echocardiogram Report Name: ARIANA LOVE III Age: 71 yrs Gender: Male : 1945 Patient Status: Inpatient Patient Location: 3S\S\327\S\A Study Date: 10/15/2016 09:13 AM Height: 71 in Weight: 152 lb BSA: 1.9 m2 Procedure: A complete two-dimensional transthoracic echocardiogram was performed (2D, M-mode, spectral and color flow Doppler). The study was technically adequate with some images being suboptimal in quality. Reason For Study: avr, chf Ordering Physician: ESTER DODSON Performed By: Natty Soto Interpretation Summary The left ventricular ejection fraction is normal. Doppler measurements suggest pseudonormalized left ventricular relaxation, which is associated with grade II/IV or mild to moderate diastolic dysfunction There is mild concentric left ventricular hypertrophy. The left ventricle is grossly normal size. Wall motion cannot be accurately commented on, but no definite regional wall motion abnormalities noted. The right ventricle is mild to moderately dilated. The right ventricular systolic function is normal. The left atrial size is normal. The right atrium is normal in size There is no mitral valve stenosis. There is a mild amount of mitral regurgitation There is a bioprosthetic aortic valve. There is mild aortic stenosis in bioprosthetic valve. No aortic regurgitation is present. There is a moderate amount of tricuspid regurgitation There is moderate pulmonary hypertension by echo Best estimated right ventricular systolic pressure is elevated at 50- 60mmHg. There is no pericardial effusion. MMode/2D Measurements \T\ Calculations RVDd: 3.2 cm LVIDd: 3.6 cm FS: 48.8 % Ao root diam: 2.8 cm IVSd: 1.1 cm LVIDs: 1.8 cm EDV(Teich): 54.5 ml LVPWd: 1.1 cm ESV(Teich): 10.3 ml Ao root area: 6.4 cm2 EF(Teich): 81.0 % LA dimension: 3.3 cm LVOT diam: 2.1 cm LVOT area: 3.5 cm2 Doppler Measurements \T\ Calculations MV E max yesi: MV P1/2t max yesi: Ao V2 max: LV V1 max P.0 cm/sec 95.4 cm/sec 311.7 cm/sec 5.4 mmHg MV A max yesi: MV P1/2t: 54.3 msec Ao max PG: LV V1 mean P.7 cm/sec MVA(P1/2t): 4.1 cm2 38.9 mmHg 2.8 mmHg MV E/A: 0.79 MV dec slope: Ao V2 mean: LV V1 max: 515.1 cm/sec2 200.8 cm/sec 116.3 cm/sec Ao mean PG: LV V1 mean: 19.0 mmHg 76.5 cm/sec Ao V2 VTI: LV V1 VTI: 46.6 cm 22.8 cm IMAN(I,D): 1.7 cm2 IMAN(V,D): 1.3 cm2 SV(LVOT): 80.2 ml PA V2 max: TR max yesi: 129.4 cm/sec 325.3 cm/sec PA max P.7 mmHg TR max P.5 mmHg Left Ventricle The left ventricle is grossly normal size. There is mild concentric left ventricular hypertrophy. The left ventricular ejection fraction is normal. Doppler measurements suggest pseudonormalized left ventricular relaxation, which is associated with grade II/IV or mild to moderate diastolic dysfunction. Wall motion cannot be accurately commented on, but no definite regional wall motion abnormalities noted. Right Ventricle The right ventricle is mild to moderately dilated. There is normal right ventricular wall thickness. The right ventricular systolic function is normal. Atria The right atrium is normal in size. The left atrial size is normal. Interarterial septum not well visualized and not well dopplered. Cannot comment on ASD/PFO presence. Mitral Valve The mitral valve leaflets are sclerotic and show some degree of functional abnormality. There is no mitral valve stenosis. There is a mild amount of mitral regurgitation. Aortic Valve There is mild aortic stenosis. No aortic regurgitation is present. There is a bioprosthetic aortic valve. Tricuspid Valve The tricuspid valve is not well visualized secondary to technical limitations. There is no tricuspid stenosis. There is a moderate amount of tricuspid regurgitation. There is moderate pulmonary hypertension by echo. Best estimated right ventricular systolic pressure is elevated at 50- 60mmHg. Pulmonic Valve The pulmonic valve is not well visualized. Great Vessels The aortic root is not well visualized but is probably normal size. The inferior vena cava appeared normal and decreased > 50% with respiration (RAP 5-10 mmHg). Effusions There is no pericardial effusion. : ESTER DODSON > Jenniffer Adams
--- NOTE | 2016-10-15 13:18 | PDOC CONSULTATION ---
Consultation Consult Date: 10/14/16 Attending physician:: ESTER DODSON Consult reason:: Elevated troponin I History of Present Illness Admission Date/PCP: 10/14/16 18:46 Patient complains of: Feeling weak fatigued and tired. History of Present Illness: ARIANA LOVE III is a 71 year old male for a history of hypertension, hyperlipidemia, diabetes mellitus, and multiple malignancies, dementia who presents to the ER on the company of his son and daughter with reports of fatigue and shortness of breath. History is primarily obtained from the son and daughter who are at bedside. Patient has been noted to be extremely fatigued and tired. His not be able to ambulate because of marked weakness. Patient has gone gradually downhill over the last several months. Patient denied any chest pain as such. Patient denied any sustained palpitations, syncope, near syncope. Patient does have a significant cardiac history. Patient has not been eating or drinking for 2 days. He's had diarrhea for several months. He's also had increasing dyspnea on exertion. He reports Plavix was stopped 4 days ago. In the emergency room recently been acute renal failure with an elevated troponin. I been asked to evaluate patient because of elevated troponin I and significant cardiac history. Past Medical History Cardiac Medical History: Reports: Hypertension - meds x yrs, Heart Murmur Denies: Coronary Artery Disease, Myocardial Infarction Pulmonary Medical History: Denies: Asthma, Bronchitis, Chronic Obstructive Pulmonary Disease (COPD), Pneumonia Neurological Medical History: Denies: Seizures Endocrine Medical History: Denies: Diabetes Mellitus Type 1, Diabetes Mellitus Type 2 Musculoskeltal Medical History: Denies: Arthritis Psychiatric Medical History: Reports: Dementia Hematology: Denies: Anemia Past Surgical History Past Surgical History: Reports: Carotid Endarterectomy, Tonsillectomy, Valve Replacement - Status post aortic valve replacement with bioprosthetic valve Social History Information Source: Relative Smoking Status: Former Smoker Cigarettes Packs Per Day: 1 Number of Years Smokin Frequency of Alcohol Use: None Hx Recreational Drug Use: No Hx Prescription Drug Abuse: No - Advance Directive Resuscitation Status: Full Code Surrogate healthcare decision maker:: Patient's daughter is the surrogate decision maker Family History Family History: CAD Parental Family History Reviewed: Yes Children Family History Reviewed: Yes Sibling(s) Family History Reviewed.: Yes Medication/Allergy Home Medications: Aspirin [Aspirin EC] 81 mg PO DAILY 10/14/16 Clopidogrel Bisulfate [Plavix 75 mg Tablet] 75 mg PO DAILY 10/14/16 Donepezil HCl [Aricept 5 mg Tablet] 5 mg PO QAM 10/14/16 Lisinopril [Prinivil] 20 mg PO QAM 10/14/16 Lovastatin [Altoprev] 20 mg PO QPM 10/14/16 Metformin HCl [Glucophage] 500 mg PO Q12 10/14/16 Metoprolol Tartrate [Lopressor 25 mg Tablet] 25 mg PO Q12 10/14/16 Tamsulosin HCl [Flomax 0.4 mg Cap.sr] 0.4 mg PO QPM 10/14/16 Allergies/Adverse Reactions: No Known Allergies Allergy (Verified 10/14/16 16:02) Review of Systems Review of Systems: Please see history of present illness and past medical history as wall. Constitutional: No fever or chills reported. Marked fatigue and weakness reported. Head : No recent chronic headaches, recent head injury. Eyes: No recent eye pain, diplopia, redness, discharge, acute visual changes. Ears: No recent chronic ear pain, acute hearing loss, ear discharge. Oral cavity: No recent ulcerations, bleeding, oral cavity discomfort. Neck: No recent acute neck pain reported. Hematologic: No recent easy bruising or bleeding or hematologic malignancy reported. Lymphatic: No recent lymphatic malignancy, chronic lymphadenopathy reported yet Cardiovascular system review: See history of present illness. Respiratory system review: No recent chronic cough, hemoptysis, blood clots in the lungs reported. Mild Shortness of breath on exertion Gastrointestinal system review: Negative for any recent acute or chronic abdominal pain, hematemesis, melena, recent diarrhea reported. Marked decreased appetite with inability to eat within the last few days. Genitourinary system review: No recent acute or chronic hematuria, flank pain, UTI etc. reported. Skin system review: Negative for any recent abnormal bruising, no rash, no pruritus reported. Neurologic: No prior history of strokes, mini strokes, seizure disorder. Psychologic: No history of major psychosis or major depression reported. History of dementia reported Musculoskeletal: Minor aches and pains reported. No acute joint swelling reported. Marked generalized weakness noted. Endocrine: No recent polyuria, polydipsia, recent heat or cold intolerance. Physical Exam Vital Signs: Temp Pulse Resp BP Pulse Ox 97.6 F 99 23 H 134/70 H 97 10/14/16 16:55 10/14/16 15:50 10/14/16 19:50 10/14/16 19:59 10/14/16 20:00 Exam: GENERAL: well-nourished and in no acute distress. Alert and oriented x3. HEAD: Atraumatic, normocephalic. EYES: Pupils equal round and reactive to light, extraocular movements intact, sclera anicteric, conjunctiva are normal. ENT: TMs normal, nares patent, oropharynx clear without exudates. Moist mucous membranes. No oral ulcerations or bleeding gums noted NECK: supple without lymphadenopathy. Trachea is central. No cervical or axillary lymphadenopathy noted. Carotids are 2+, JVD WNL LUNGS: Respiration seems nonlabored, no significant accessory muscle action noted. Diminished breath sounds noted right base along with dullness and bibasilar crackles. CHEST: Palpation of the chest wall shows no significant chest wall tenderness. No other significant abnormalities noted. 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 ABDOMEN: Soft, no significant tenderness appreciated, normoactive bowel sounds. No guarding, no rebound. No rigidity noted . No masses appreciated. EXTREMITIES: Pedal pulses are 1-2+, no calf tenderness noted. No clubbing or cyanosis.trace to 1+ pedal edema noted NEUROLOGICAL: Focused neurological exam showed no significant neurologic deficit. Normal speech, no focal weakness appreciated. PSYCH: Normal mood, normal affect. Judgment and insight within normal limits. SKIN: No significant ecchymosis, rash, ulcerations or signs of pruritus noted. Skin turgor noted to be reduced. MUSCULOSKELETAL EXAM: No significant joint swelling noted. Results Laboratory Results: 10/14/16 19:50 Urine Color YELLOW Urine Appearance SLIGHTLY-CLOUDY Urine pH 5.0 Ur Specific [place] 1.018 Urine Protein NEGATIVE Urine Glucose (UA) 150 H Urine Ketones TRACE H Urine Blood NEGATIVE Urine Nitrite NEGATIVE Ur Leukocyte Esterase NEGATIVE Urine WBC (Auto) 3 Urine RBC (Auto) 1 EKG Comments: Sinus rhythm, left axis deviation, left anterior hemiblock and right bundle branch block pattern. When compared to prior EKG from October 10, there are no significant changes. Impressions: Chest X-Ray 10/14/16 16:11 IMPRESSION: There is persistent patchy airspace disease in the right lung that does not show significant change. There is the suggestion of a small right pleural effusion Assessment & Plan - Diagnosis (1) Elevated troponin Is this a current diagnosis for this admission?: Yes (2) Acute renal failure Qualifiers: Acute renal failure type: unspecified Qualified Code(s): N17.9 - Acute kidney failure, unspecified Is this a current diagnosis for this admission?: Yes (3) Hypotension Qualifiers: Hypotension type: unspecified hypotension type Qualified Code(s): I95.9 - Hypotension, unspecified Is this a current diagnosis for this admission?: Yes (4) Pleural effusion Is this a current diagnosis for this admission?: Yes (5) H/O aortic valve replacement Is this a current diagnosis for this admission?: Yes - Notes Notes: Elevated troponin I: Patient EKG is not showing any acute ST-T wave changes. Patient had no chest pain but had symptoms of marked fatigue and tiredness. There is however alternative explanation of these symptoms. Exact etiology of elevated troponin I is not clear but could be from acute renal failure, dehydration, hypotension etc. but cannot rule out any underlying cardiac ischemic syndrome. This is however felt unlikely. Also patient has significant ongoing comorbid condition therefore do not feel any ischemia workup is warranted in the absence of significant symptoms. This was explained with the family and they are agreeable with this approach. Acute renal failure: Most likely related to dehydration and hypotension from poor intake. Agree with IV fluid therapy. Hypo-tension: Most likely related to dehydration from poor by mouth intake. Right pleural effusion: This is most likely related to malignancy. Agree with attempts to do thoracentesis. Status post aortic valve replacement: Clinically seems to be functioning adequately. Agree with 2-D echo to evaluate this further and look for any other cardiac abnormalities. - Time Time Spent: 30 to 50 Minutes - CODE STATUS was discussed, patient remains full code. Surrogate decision-maker unchanged. Multiple medical problems were addressed.More than 50% of the time spent coordinating care, discussing management plans with involved caregivers. Management plans discussed with involved personnels. Medical decision making was of moderate to high complexity , patient's has multiple severe comorbidities. Medications reviewed and adjusted accordingly: Yes
--- NOTE | 2016-10-15 13:21 | PDOC PROGRESS REPORT ---
Subjective Progress Note for:: 10/15/16 Subjective:: Patient seems about the same may be slightly more dyspneic. Patient noted to be slightly tachycardic especially when he exerts. Patient is maintaining sinus rhythm. Physical Exam Vital Signs: Temp Pulse Resp BP Pulse Ox 97.8 F 129 H 24 H 157/66 H 93 10/15/16 12:35 10/15/16 12:35 10/15/16 12:35 10/15/16 12:35 10/15/16 12:35 Intake & Output 10/14/16 10/15/16 10/16/16 06:59 06:59 06:59 Intake Total 1276 118 Output Total 375 150 Balance 901 -32 Weight 72 kg Exam: GENERAL: well-nourished and in no acute distress. Alert and oriented x3 HEAD: Atraumatic, normocephalic. EYES: Pupils equal round and reactive to light, extraocular movements intact, sclera anicteric, conjunctiva are normal. ENT: TMs normal, nares patent, oropharynx clear without exudates. Moist mucous membranes. No oral ulcerations or bleeding gums noted NECK: supple without lymphadenopathy. Trachea is central. No cervical or axillary lymphadenopathy noted. Carotids are 2+, JVD WNL LUNGS: Respiration seems nonlabored, no significant accessory muscle action noted. Decreased breath sounds noted right base along with few bibasilar crackles and mild wheezing. CHEST: Palpation of the chest wall shows no significant chest wall tenderness. No other significant abnormalities noted. 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 ABDOMEN: Soft, no significant tenderness appreciated, normoactive bowel sounds. No guarding, no rebound. No rigidity noted . No masses appreciated. EXTREMITIES: Pedal pulses are 1-2+, no calf tenderness noted. No clubbing or cyanosis.no pedal edema noted NEUROLOGICAL: Focused neurological exam showed no significant neurologic deficit. Normal speech, no focal weakness appreciated. PSYCH: Normal mood, normal affect. Judgment and insight within normal limits. SKIN: No significant ecchymosis, rash, ulcerations or signs of pruritus noted. MUSCULOSKELETAL EXAM: No significant joint swelling noted. Skin turgor noted to be reduced. Patient has generalized weakness Results Laboratory Results: 10/15/16 07:18 10/15/16 07:18 10/14/16 10/15/16 10/15/16 19:50 07:18 07:18 WBC 13.0 H RBC 3.95 L Hgb 12.0 L Hct 36.9 L MCV 94 MCH 30.3 MCHC 32.4 RDW 12.0 Plt Count 329 Seg Neutrophils % 78.7 H Lymphocytes % 5.7 L Monocytes % 14.9 H Eosinophils % 0.4 Basophils % 0.3 Absolute Neutrophils 10.2 H Absolute Lymphocytes 0.7 Absolute Monocytes 1.9 H Absolute Eosinophils 0.1 Absolute Basophils 0.0 Sodium 137.1 Potassium 4.1 Chloride 103 Carbon Dioxide 21 L Anion Gap 13 BUN 30 H Creatinine 1.05 Est GFR ( Amer) > 60 Est GFR (Non-Af Amer) > 60 Glucose 159 H Calcium 8.6 Triglycerides 93 Cholesterol 91.45 LDL Cholesterol Direct < 30 VLDL Cholesterol 19.0 HDL Cholesterol 36 L Urine Color YELLOW Urine Appearance SLIGHTLY-CLOUDY Urine pH 5.0 Ur Specific [place] 1.018 Urine Protein NEGATIVE Urine Glucose (UA) 150 H Urine Ketones TRACE H Urine Blood NEGATIVE Urine Nitrite NEGATIVE Ur Leukocyte Esterase NEGATIVE Urine WBC (Auto) 3 Urine RBC (Auto) 1 10/14/16 10/14/16 10/15/16 20:12 20:12 01:38 Creatine Kinase 77 73 CK-MB (CK-2) 7.25 H Troponin I 1.250 10/15/16 10/15/16 10/15/16 01:38 07:18 07:18 Creatine Kinase 70 CK-MB (CK-2) 7.10 H 6.89 H Troponin I 1.060 0.864 Impressions: Chest X-Ray 10/14/16 16:11 IMPRESSION: There is persistent patchy airspace disease in the right lung that does not show significant change. There is the suggestion of a small right pleural effusion Assessment & Plan - Diagnosis (1) Elevated troponin Is this a current diagnosis for this admission?: Yes (2) Acute renal failure Qualifiers: Acute renal failure type: unspecified Qualified Code(s): N17.9 - Acute kidney failure, unspecified Is this a current diagnosis for this admission?: Yes (3) Hypotension Qualifiers: Hypotension type: unspecified hypotension type Qualified Code(s): I95.9 - Hypotension, unspecified Is this a current diagnosis for this admission?: Yes (4) Pleural effusion Is this a current diagnosis for this admission?: Yes (5) H/O aortic valve replacement Is this a current diagnosis for this admission?: Yes - Notes Notes: No significant change in patient general condition except maybe slightly more short of breath. Lab data shows improvement in renal functions. Troponin I's are trending down. Blood pressure has been stable. Pleural effusion may be somewhat worse based on clinical exam. Patient to go for thoracentesis. 2-D echocardiogram results reviewed. Patient has normal LVEF. RV is enlarged. Mild aortic stenosis noted in the bioprosthetic aortic valve. Mild mitral regurgitation and moderate tricuspid regurgitation noted with moderate pulmonary hypertension. This was discussed with Dr. Zelaya. Patient should feel better after thoracentesis. Patient's medical regimen reviewed no medication changes performed today. Agree with current management plans outlined by the hospitalist. Impression and plan otherwise unchanged from yesterday. - Time Time with patient: Greater than 35 minutes - CODE STATUS was discussed, patient remains full code. Surrogate decision-maker unchanged. Multiple medical problems were addressed.More than 50% of the time spent coordinating care, discussing management plans with involved caregivers. Management plans discussed with involved personnels. Medical decision making was of moderate to high complexity, patient's has multiple severe comorbidities. Medications reviewed and adjusted accordingly: Yes
[2016-10-15] MEDS: HALOPERIDOL LACTATE INJ 5 MG/1 ML VIAL IV PRN ×2 (15:00→19:58)
[2016-10-15 15:41] LABS: FLUID APPEARANCE CLOUDY; FLUID RBC AVERAGE 487.5; FLUID RBC SIDE 1 475; FLUID RBC SIDE 2 500; FLUID TYPE PLEURAL
[2016-10-15 15:42] LABS: FLUID RBC DILUENT USED SALINE; FLUID RBC DILUTION FACTOR 51; TOTAL RBC SQUARES COUNTED FLD 25
[2016-10-15] MEDS: TAMSULOSIN HCL 0.4 MG CAP.SR.24H PO SCH (17:26)
--- NOTE | 2016-10-15 18:28 | PDOC PROGRESS REPORT ---
Subjective Progress Note for:: 10/15/16 Subjective:: Patient reports that he is feeling much better. He reports his appetite has improved. Daughter is at bedside and reports that her father's dementia does wax and wane. Patient denies chest pain, shortness of breath, abdominal pain, nausea, vomiting , fevers, chills, diarrhea, constipation, headache, new onset weakness. Physical Exam Vital Signs: Temp Pulse Resp BP Pulse Ox 98.3 F 109 H 20 130/63 H 94 10/15/16 03:57 10/15/16 07:00 10/15/16 03:57 10/15/16 03:57 10/15/16 03:57 Intake & Output 10/14/16 10/15/16 10/16/16 06:59 06:59 06:59 Intake Total 1276 Output Total 375 Balance 901 Weight 72 kg Exam: General: Awake alert and answers questions appropriately, no acute respiratory distress HEENT: AT/NC, PERRL, EOMI, oropharynx is moist, pink, no scleral icterus, no conjunctival injection Neck: No JVD, trachea midline Chest: Decreased breath sounds from right midline down CV: normal S1 and S2, 2/6 systolic murmur, +click, no rub or gallop Abdomen: Soft, nontender to palpation, nondistended, active bowel sounds; no rebound, rigidity, or guarding Extremities: No cyanosis, clubbing or edema Neuro: Cranial nerves II through XII are grossly intact without focal deficits Psych: Normal mood and affect Results Laboratory Results: 10/15/16 07:18 10/14/16 10/15/16 19:50 07:18 WBC 13.0 H RBC 3.95 L Hgb 12.0 L Hct 36.9 L MCV 94 MCH 30.3 MCHC 32.4 RDW 12.0 Plt Count 329 Seg Neutrophils % 78.7 H Lymphocytes % 5.7 L Monocytes % 14.9 H Eosinophils % 0.4 Basophils % 0.3 Absolute Neutrophils 10.2 H Absolute Lymphocytes 0.7 Absolute Monocytes 1.9 H Absolute Eosinophils 0.1 Absolute Basophils 0.0 Urine Color YELLOW Urine Appearance SLIGHTLY-CLOUDY Urine pH 5.0 Ur Specific [place] 1.018 Urine Protein NEGATIVE Urine Glucose (UA) 150 H Urine Ketones TRACE H Urine Blood NEGATIVE Urine Nitrite NEGATIVE Ur Leukocyte Esterase NEGATIVE Urine WBC (Auto) 3 Urine RBC (Auto) 1 10/14/16 10/14/16 10/15/16 20:12 20:12 01:38 Creatine Kinase 77 73 CK-MB (CK-2) 7.25 H Troponin I 1.250 10/15/16 01:38 Creatine Kinase CK-MB (CK-2) 7.10 H Troponin I 1.060 Impressions: Chest X-Ray 10/14/16 16:11 IMPRESSION: There is persistent patchy airspace disease in the right lung that does not show significant change. There is the suggestion of a small right pleural effusion Assessment & Plan - Diagnosis (1) Acute renal failure Qualifiers: Acute renal failure type: unspecified Qualified Code(s): N17.9 - Acute kidney failure, unspecified Is this a current diagnosis for this admission?: YesPlan: Improved. Secondary to dehydration (2) Diarrhea Qualifiers: Diarrhea type: unspecified type Qualified Code(s): R19.7 - Diarrhea , unspecified Is this a current diagnosis for this admission?: YesPlan: Stool studies are currently pending (3) Elevated troponin Is this a current diagnosis for this admission?: YesPlan: Appreciate cardiology input. Feel this is likely secondary to strain and acute renal failure. Troponins are trending down. (4) Hypotension Qualifiers: Hypotension type: unspecified hypotension type Qualified Code(s): I95.9 - Hypotension, unspecified Is this a current diagnosis for this admission?: YesPlan: Now resolved. This is likely secondary to not eating or drinking. Patient was also continuing to take his antihypertensives. (5) Pleural effusion Is this a current diagnosis for this admission?: YesPlan: Patient underwent thoracocentesis and a large amount of bloody fluid was aspirated. (6) Pneumonia Qualifiers: Pneumonia type: due to unspecified organism Laterality: right Lung location: unspecified part of lung Qualified Code(s): J18.9 - Pneumonia, unspecified organism Is this a current diagnosis for this admission?: YesPlan: This is likely a postobstructive pneumonia with concern for gram-negative is. We will place patient on cefepime. Pending sputum culture (7) Dementia Qualifiers: Dementia type: Alzheimer's disease Alzheimer's disease onset: unspecified onset Dementia behavioral disturbance: without behavioral disturbance Qualified Code(s): G30.9 - Alzheimer's disease, unspecified; F02.80 - Dementia in other diseases classified elsewhere without behavioral disturbance Is this a current diagnosis for this admission?: YesPlan: Supportive care and Haldol (8) Diabetes mellitus Qualifiers: Diabetes mellitus type: type 2 Diabetes mellitus complication status: with unspecified complications Diabetes mellitus retirement insulin use: without 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 use Qualified Code(s): E11.8 - Type 2 diabetes mellitus with unspecified complications; Z79.4 - skilled nursing (current) use of insulin Is this a current diagnosis for this admission?: YesPlan: Patient's hemoglobin A1c of 8.5. At this time I stopped his metformin secondary to poor by mouth intake and diarrhea. At this time, will monitor patient's BMP and consider reinitiation of oral medications. (9) H/O aortic valve replacement Is this a current diagnosis for this admission?: YesPlan: Patient no longer needs anticoagulation. (10) Lung mass Is this a current diagnosis for this admission?: YesPlan: Consulted Dr. Long This is likely a malignancy. Will obtain cytology from pleural effusion. (11) UTI (urinary tract infection) Qualifiers: Urinary tract infection type: acute cystitis Hematuria presence: without hematuria Qualified Code(s): N30.00 - Acute cystitis without hematuria Is this a current diagnosis for this admission?: YesPlan: Pending culture - Time Time Spent with patient: 35 or more minutes Medications reviewed and adjusted accordingly: Yes Anticipated discharge: Home with Homehealth Within: within 48 hours
[2016-10-15 20:18] LABS: ABSOLUTE EOSINOPHILS # (AUTO) 0.2 10^3/uL (0.0-0.6); ABSOLUTE LYMPHOCYTES (AUTO) 0.9 10^3/uL (0.5-4.7); ABSOLUTE MONOCYTES (AUTO) 1.9 10^3/uL (0.1-1.4); BASOPHILS % (AUTO) 0.4 % (0-2); EOSINOPHILS % (AUTO) 1.7 % (0-6); HEMOGLOBIN 11.8 g/dL (13.5-17.0); HGB HCT DIFFERENCE 0.4; LYMPHOCYTES % (AUTO) 7.2 % (13-45); MEAN CORPUSCULAR HEMOGLOBIN 31.1 pg (27.0-33.4); MEAN CORPUSCULAR HGB CONC 33.6 g/dL (32.0-36.0); MEAN CORPUSCULAR VOLUME 93 fl (80-97); MONOCYTES % (AUTO) 15.6 % (3-13); RED BLOOD COUNT 3.78 10^6/uL (4.35-5.55); RED CELL DISTRIBUTION WIDTH 12.3 % (11.5-14.0); SEGMENTED NEUTROPHILS % (AUTO) 75.1 % (42-78)
[2016-10-15] MEDS: CEFEPIME HCL 2 GM in DEXTROSE 5%-WATER 50 ML IV SCH (21:47)
[2016-10-15] MEDS: METOPROLOL TARTRATE 25 MG TABLET PO SCH (22:04)
[2016-10-16 06:47] LABS: ABSOLUTE BASOPHILS # (AUTO) 0.1 10^3/uL (0.0-0.2); ABSOLUTE EOSINOPHILS # (AUTO) 0.2 10^3/uL (0.0-0.6); ABSOLUTE LYMPHOCYTES (AUTO) 0.8 10^3/uL (0.5-4.7); ABSOLUTE MONOCYTES (AUTO) 1.9 10^3/uL (0.1-1.4); ABSOLUTE NEUT (AUTO) 8.8 10^3/uL (1.7-8.2); BASOPHILS % (AUTO) 0.8 % (0-2); HEMOGLOBIN 11.5 g/dL (13.5-17.0); HGB HCT DIFFERENCE 0.5; MEAN CORPUSCULAR HEMOGLOBIN 30.9 pg (27.0-33.4); MEAN CORPUSCULAR HGB CONC 33.9 g/dL (32.0-36.0); MEAN CORPUSCULAR VOLUME 91 fl (80-97); MONOCYTES % (AUTO) 15.7 % (3-13); RED BLOOD COUNT 3.72 10^6/uL (4.35-5.55); RED CELL DISTRIBUTION WIDTH 11.7 % (11.5-14.0); SEGMENTED NEUTROPHILS % (AUTO) 74.5 % (42-78); WHITE BLOOD COUNT 11.9 10^3/uL (4.0-10.5)
[2016-10-16 07:02] LABS: ANION GAP 11 (5-19); BLOOD UREA NITROGEN 17 mg/dL (7-20); CALCIUM 8.8 mg/dL (8.4-10.2); CARBON DIOXIDE 23 mmol/L (22-30); CHLORIDE 101 mmol/L (98-107); CREATININE RESULT 0.86 mg/dL (0.52-1.25); GLUCOSE 159 mg/dL (75-110); MAGNESIUM 1.3 mg/dL (1.6-2.3); POTASSIUM 3.8 mmol/L (3.6-5.0); SODIUM 134.6 mmol/L (137-145)
[2016-10-16] MEDS: MAGNESIUM SULFATE/D5W 100 ML IV SCH ×2 (09:36→10:52)
[2016-10-16] MEDS: METOPROLOL TARTRATE 25 MG TABLET PO SCH ×2 (09:37→21:08)
[2016-10-16] MEDS: FAMOTIDINE 20 MG TABLET PO SCH ×2 (09:38→21:08)
[2016-10-16] MEDS: MEGESTROL ACETATE SUSP 400 MG/10 ML UDCUP PO SCH (09:38)
[2016-10-16] MEDS: LEVOFLOXACIN 750 MG TABLET PO SCH (12:13)
--- NOTE | 2016-10-16 13:41 | PDOC PROGRESS REPORT ---
Subjective Progress Note for:: 10/16/16 Subjective:: Patient seems to be feeling much better. He has significantly less dyspnea. His tachycardia has improved and currently heart rate is normal. Chest x-ray however still shows bilateral pleural effusion. Patient had 1200 mL soft sanguinous fluid removed from the right side.. Patient is maintaining sinus rhythm. Physical Exam Vital Signs: Temp Pulse Resp BP Pulse Ox 97.6 F 86 16 134/61 H 97 10/16/16 11:28 10/16/16 13:24 10/16/16 13:24 10/16/16 11:28 10/16/16 11:28 Intake & Output 10/15/16 10/16/16 10/17/16 06:59 06:59 06:59 Intake Total 1276 679 Output Total 375 875 Balance 901 -196 Weight 72 kg 70.3 kg Exam: GENERAL: well-nourished and in no acute distress. Alert and oriented x3 HEAD: Atraumatic, normocephalic. EYES: Pupils equal round and reactive to light, extraocular movements intact, sclera anicteric, conjunctiva are normal. ENT: TMs normal, nares patent, oropharynx clear without exudates. Moist mucous membranes. No oral ulcerations or bleeding gums noted NECK: supple without lymphadenopathy. Trachea is central. No cervical or axillary lymphadenopathy noted. Carotids are 2+, JVD WNL LUNGS: Respiration seems nonlabored, no significant accessory muscle action noted. Bibasilar mild dullness noted on percussion. Lungs are otherwise clear. CHEST: Palpation of the chest wall shows no significant chest wall tenderness. No other significant abnormalities noted. HEART: [place] [employer], No PSH, 2/6 MARY ANN aortic area, 1/6 cardenas systolic murmur mitral area , no rubs, no gallops. ABDOMEN: Soft, no significant tenderness appreciated, normoactive bowel sounds. No guarding, no rebound. No rigidity noted . No masses appreciated. EXTREMITIES: Pedal pulses are 1-2+, no calf tenderness noted. No clubbing or cyanosis.trace pedal edema noted NEUROLOGICAL: Focused neurological exam showed no significant neurologic deficit. Normal speech, no focal weakness appreciated. PSYCH: Normal mood, normal affect. Judgment and insight within normal limits. SKIN: No significant ecchymosis, rash, ulcerations or signs of pruritus noted. MUSCULOSKELETAL EXAM: No significant joint swelling noted. Results Laboratory Results: 10/16/16 06:30 10/16/16 06:30 10/15/16 10/15/16 10/16/16 14:20 20:09 06:30 WBC 12.0 H 11.9 H RBC 3.78 L 3.72 L Hgb 11.8 L 11.5 L Hct 35.0 L 34.0 L MCV 93 91 MCH 31.1 30.9 MCHC 33.6 33.9 RDW 12.3 11.7 Plt Count 301 321 Seg Neutrophils % 75.1 74.5 Lymphocytes % 7.2 L 7.0 L Monocytes % 15.6 H 15.7 H Eosinophils % 1.7 2.0 Basophils % 0.4 0.8 Absolute Neutrophils 9.0 H 8.8 H Absolute Lymphocytes 0.9 0.8 Absolute Monocytes 1.9 H 1.9 H Absolute Eosinophils 0.2 0.2 Absolute Basophils 0.0 0.1 Sodium Potassium Chloride Carbon Dioxide Anion Gap BUN Creatinine Est GFR ( Amer) Est GFR (Non-Af Amer) Glucose Calcium Magnesium Fluid Type PLEURAL Fluid Source Fluid Color RED Fluid Appearance CLOUDY Fluid Viscosity LIQUID Fluid WBC 1247 Fluid RBC [id number] 10/16/16 06:30 WBC RBC Hgb Hct MCV MCH MCHC RDW Plt Count Seg Neutrophils % Lymphocytes % Monocytes % Eosinophils % Basophils % Absolute Neutrophils Absolute Lymphocytes Absolute Monocytes Absolute Eosinophils Absolute Basophils Sodium 134.6 L Potassium 3.8 Chloride 101 Carbon Dioxide 23 Anion Gap 11 BUN 17 Creatinine 0.86 Est GFR ( Amer) > 60 Est GFR (Non-Af Amer) > 60 Glucose 159 H Calcium 8.8 Magnesium 1.3 L Fluid Type Fluid Source Fluid Color Fluid Appearance Fluid Viscosity Fluid WBC Fluid RBC 10/14/16 19:50 Clean Catch Midstream Urine Culture - Final NO GROWTH 2 DAYS 10/14/16 10/14/16 10/15/16 20:12 20:12 01:38 Creatine Kinase 77 73 CK-MB (CK-2) 7.25 H Troponin I 1.250 10/15/16 10/15/16 10/15/16 01:38 07:18 07:18 Creatine Kinase 70 CK-MB (CK-2) 7.10 H 6.89 H Troponin I 1.060 0.864 Impressions: Thoracentesis Ultrasound 10/15/16 00:00 IMPRESSION: SUCCESSFUL THORACENTESIS USING ULTRASOUND GUIDANCE. Chest X-Ray 10/16/16 06:00 IMPRESSION: INCREASING LEFT LOWER LOBE AIRSPACE DISEASE. OTHERWISE STABLE APPEARANCE OF THE CHEST. Assessment & Plan - Diagnosis (1) Elevated troponin Is this a current diagnosis for this admission?: Yes (2) Acute renal failure Qualifiers: Acute renal failure type: unspecified Qualified Code(s): N17.9 - Acute kidney failure, unspecified Is this a current diagnosis for this admission?: Yes (3) Hypotension Qualifiers: Hypotension type: unspecified hypotension type Qualified Code(s): I95.9 - Hypotension, unspecified Is this a current diagnosis for this admission?: Yes (4) Pleural effusion Is this a current diagnosis for this admission?: Yes (5) H/O aortic valve replacement Is this a current diagnosis for this admission?: Yes - Notes Notes: Clinically improved with less shortness of breath and less tachycardia. Vital signs are noted to be stable. 2-D echocardiogram results reviewed. Patient has normal LVEF. RV is enlarged. Mild aortic stenosis noted in the bioprosthetic aortic valve. Mild mitral regurgitation and moderate tricuspid regurgitation noted with moderate pulmonary hypertension. Elevated troponin I is trending down. Acute renal failure is improving. Renal functions are actually normal today. Aortic valve is bioprosthetic has mild stenosis. Chest x-ray shows residual bilateral pleural effusion. Thoracentesis findings are pending. Agree with current management plans outlined by the hospitalist. We'll check a chemistry panel and BNP level for tomorrow morning. Possibly patient may need to be started on some diuretics. - Time Time with patient: 15-25 minutes
--- NOTE | 2016-10-16 15:09 | PDOC PROGRESS REPORT ---
Subjective Progress Note for:: 10/16/16 Subjective:: He reports his appetite has improved. Patient reports that his breathing is not any better or worse. Daughter is at bedside and reports that her father's dementia does wax and wane. Patient denies chest pain, shortness of breath, abdominal pain, nausea, vomiting , fevers, chills, diarrhea, constipation, headache, new onset weakness. Physical Exam Vital Signs: Temp Pulse Resp BP Pulse Ox 98.5 F 94 18 128/59 H 97 10/16/16 03:13 10/16/16 06:52 10/16/16 03:13 10/16/16 03:13 10/16/16 03:13 Intake & Output 10/15/16 10/16/16 10/17/16 06:59 06:59 06:59 Intake Total 1276 679 Output Total 375 875 Balance 901 -196 Weight 72 kg 70.3 kg Exam: General: Resting comfortably, but wakes to gentle stimuli, alert and answers questions appropriately, no acute respiratory distress HEENT: AT/NC, PERRL, EOMI, oropharynx is moist, pink, no scleral icterus, no conjunctival injection Neck: No JVD, trachea midline Chest: Decreased right base, bibasilar crackles CV: normal S1 and S2, 2/6 systolic murmur, +click, no rub or gallop Abdomen: Soft, nontender to palpation, nondistended, active bowel sounds; no rebound, rigidity, or guarding Extremities: No cyanosis, clubbing or edema Neuro: Cranial nerves II through XII are grossly intact without focal deficits Psych: Normal mood and affect Results Laboratory Results: 10/16/16 06:30 10/16/16 06:30 10/15/16 10/15/16 10/15/16 07:18 07:18 14:20 WBC 13.0 H RBC 3.95 L Hgb 12.0 L Hct 36.9 L MCV 94 MCH 30.3 MCHC 32.4 RDW 12.0 Plt Count 329 Seg Neutrophils % 78.7 H Lymphocytes % 5.7 L Monocytes % 14.9 H Eosinophils % 0.4 Basophils % 0.3 Absolute Neutrophils 10.2 H Absolute Lymphocytes 0.7 Absolute Monocytes 1.9 H Absolute Eosinophils 0.1 Absolute Basophils 0.0 Sodium 137.1 Potassium 4.1 Chloride 103 Carbon Dioxide 21 L Anion Gap 13 BUN 30 H Creatinine 1.05 Est GFR ( Amer) > 60 Est GFR (Non-Af Amer) > 60 Glucose 159 H Calcium 8.6 Magnesium Triglycerides 93 Cholesterol 91.45 LDL Cholesterol Direct < 30 VLDL Cholesterol 19.0 HDL Cholesterol 36 L Fluid Type PLEURAL Fluid Source Fluid Color RED Fluid Appearance CLOUDY Fluid Viscosity LIQUID Fluid WBC 1247 Fluid RBC 232120 10/15/16 10/16/16 10/16/16 20:09 06:30 06:30 WBC 12.0 H 11.9 H RBC 3.78 L 3.72 L Hgb 11.8 L 11.5 L Hct 35.0 L 34.0 L MCV 93 91 MCH 31.1 30.9 MCHC 33.6 33.9 RDW 12.3 11.7 Plt Count 301 321 Seg Neutrophils % 75.1 74.5 Lymphocytes % 7.2 L 7.0 L Monocytes % 15.6 H 15.7 H Eosinophils % 1.7 2.0 Basophils % 0.4 0.8 Absolute Neutrophils 9.0 H 8.8 H Absolute Lymphocytes 0.9 0.8 Absolute Monocytes 1.9 H 1.9 H Absolute Eosinophils 0.2 0.2 Absolute Basophils 0.0 0.1 Sodium 134.6 L Potassium 3.8 Chloride 101 Carbon Dioxide 23 Anion Gap 11 BUN 17 Creatinine 0.86 Est GFR ( Amer) > 60 Est GFR (Non-Af Amer) > 60 Glucose 159 H Calcium 8.8 Magnesium 1.3 L Triglycerides Cholesterol LDL Cholesterol Direct VLDL Cholesterol HDL Cholesterol Fluid Type Fluid Source Fluid Color Fluid Appearance Fluid Viscosity Fluid WBC Fluid RBC 10/14/16 10/14/16 10/15/16 20:12 20:12 01:38 Creatine Kinase 77 73 CK-MB (CK-2) 7.25 H Troponin I 1.250 10/15/16 10/15/16 10/15/16 01:38 07:18 07:18 Creatine Kinase 70 CK-MB (CK-2) 7.10 H 6.89 H Troponin I 1.060 0.864 Impressions: Chest X-Ray 10/15/16 00:00 IMPRESSION: No pneumothorax 2 hours post right thoracentesis Thoracentesis Ultrasound 10/15/16 00:00 IMPRESSION: SUCCESSFUL THORACENTESIS USING ULTRASOUND GUIDANCE. Assessment & Plan - Diagnosis (1) Acute renal failure Qualifiers: Acute renal failure type: unspecified Qualified Code(s): N17.9 - Acute kidney failure, unspecified Is this a current diagnosis for this admission?: YesPlan: Improved. Secondary to dehydration (2) Diarrhea Qualifiers: Diarrhea type: unspecified type Qualified Code(s): R19.7 - Diarrhea , unspecified Is this a current diagnosis for this admission?: YesPlan: has had no further diarrhea since admission and stopping metformin (3) Elevated troponin Is this a current diagnosis for this admission?: YesPlan: Likely secondary to strain. Appreciate cardiology input (4) Hypotension Qualifiers: Hypotension type: unspecified hypotension type Qualified Code(s): I95.9 - Hypotension, unspecified Is this a current diagnosis for this admission?: YesPlan: Now resolved. This is likely secondary to not eating or drinking. Patient was also continuing to take his antihypertensives. (5) Pleural effusion Is this a current diagnosis for this admission?: YesPlan: Patient underwent thoracocentesis and 1200mL bloody fluid was aspirated. 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 Patient on Levaquin and cefepime. Concern of this extremity may be fluid overload. Patient has had no further fevers and no worsening of his white count. (7) Dementia Qualifiers: Dementia type: Alzheimer's disease Alzheimer's disease onset: unspecified onset Dementia behavioral disturbance: without behavioral disturbance Qualified Code(s): G30.9 - Alzheimer's disease, unspecified; F02.80 - Dementia in other diseases classified elsewhere without behavioral disturbance Is this a current diagnosis for this admission?: YesPlan: Supportive care and Haldol (8) Diabetes mellitus Qualifiers: Diabetes mellitus type: type 2 Diabetes mellitus complication status: with unspecified complications Diabetes mellitus local intermodal truck driver insulin use: without local intermodal truck driver use Qualified Code(s): E11.8 - Type 2 diabetes mellitus with unspecified complications; Z79.4 - USP (current) use of insulin Is this a current diagnosis for this admission?: YesPlan: Continue sliding scale insulin. Consider Leeuvia as an outpatient. Will continue to hold metformin due to diarrhea (9) H/O aortic valve replacement Is this a current diagnosis for this admission?: YesPlan: Patient no longer needs anticoagulation. (10) Lung mass Is this a current diagnosis for this admission?: YesPlan: Consulted Dr. Long This is likely a malignancy. Pending cytology from pleural effusion. (11) UTI (urinary tract infection) Qualifiers: Urinary tract infection type: acute cystitis Hematuria presence: without hematuria Qualified Code(s): N30.00 - Acute cystitis without hematuria Is this a current diagnosis for this admission?: YesPlan: Pending culture - Time Time Spent with patient: 25-34 minutes Medications reviewed and adjusted accordingly: Yes Anticipated discharge: Home Within: within 48 hours
[2016-10-16] MEDS ORDERED: DEXTROSE 40% GEL 15 GM TUBE PO PRN ×2 (16:54)
[2016-10-16] MEDS ORDERED: GLUCAGON,HUMAN RECOMB 1 MG INJ IM PRN (16:54)
[2016-10-16] MEDS ORDERED: DEXTROSE 50%-WATER 25 GM/50 ML DISP.SYRIN IV PRN ×2 (16:54)
[2016-10-16] MEDS: TAMSULOSIN HCL 0.4 MG CAP.SR.24H PO SCH (17:23)
[2016-10-16] MEDS: INSULIN LISPRO 100 UNIT/ML 3 ML VIAL SUBCUT PRN ×2 (17:24→22:56)
[2016-10-16] MEDS: CEFEPIME HCL 2 GM in DEXTROSE 5%-WATER 50 ML IV SCH (21:05)
[2016-10-17 06:40] LABS: ABSOLUTE BASOPHILS # (AUTO) 0.1 10^3/uL (0.0-0.2); ABSOLUTE EOSINOPHILS # (AUTO) 0.2 10^3/uL (0.0-0.6); ABSOLUTE MONOCYTES (AUTO) 1.8 10^3/uL (0.1-1.4); ABSOLUTE NEUT (AUTO) 8.2 10^3/uL (1.7-8.2); BASOPHILS % (AUTO) 0.7 % (0-2); HEMATOCRIT 35.4 % (37.9-51.0); HEMOGLOBIN 12.1 g/dL (13.5-17.0); HGB HCT DIFFERENCE 0.9; LYMPHOCYTES % (AUTO) 9.1 % (13-45); MEAN CORPUSCULAR HEMOGLOBIN 31.1 pg (27.0-33.4); MEAN CORPUSCULAR HGB CONC 34.1 g/dL (32.0-36.0); MEAN CORPUSCULAR VOLUME 91 fl (80-97); MONOCYTES % (AUTO) 15.5 % (3-13); RED BLOOD COUNT 3.88 10^6/uL (4.35-5.55); RED CELL DISTRIBUTION WIDTH 12.1 % (11.5-14.0); SEGMENTED NEUTROPHILS % (AUTO) 72.7 % (42-78); WHITE BLOOD COUNT 11.3 10^3/uL (4.0-10.5)
[2016-10-17 06:59] LABS: ANION GAP 12 (5-19); BLOOD UREA NITROGEN 16 mg/dL (7-20); CARBON DIOXIDE 21 mmol/L (22-30); CHLORIDE 99 mmol/L (98-107); CREATININE RESULT 0.82 mg/dL (0.52-1.25); GLUCOSE 163 mg/dL (75-110); POTASSIUM 3.7 mmol/L (3.6-5.0); SODIUM 132.3 mmol/L (137-145)
[2016-10-17] MEDS: INSULIN LISPRO 100 UNIT/ML 3 ML VIAL SUBCUT PRN ×3 (07:52→22:13)
[2016-10-17 08:23] LABS: ALBUMIN 2.6 g/dL (3.5-5.0); MAGNESIUM 1.4 mg/dL (1.6-2.3)
[2016-10-17] MEDS: METOPROLOL TARTRATE 25 MG TABLET PO SCH (10:00)
[2016-10-17] MEDS: FAMOTIDINE 20 MG TABLET PO SCH ×2 (10:01→22:13)
[2016-10-17] MEDS: MEGESTROL ACETATE SUSP 400 MG/10 ML UDCUP PO SCH (10:01)
[2016-10-17] MEDS: LEVOFLOXACIN 750 MG TABLET PO SCH (10:05)
[2016-10-17] MEDS ORDERED: METOPROLOL TARTRATE 25 MG TABLET PO SCH (10:40)
--- NOTE | 2016-10-17 12:19 | PDOC PROGRESS REPORT ---
Subjective Progress Note for:: 10/17/16 Subjective:: He reports his appetite has improved. Denies any new complaints. Patient got up to the bathroom and had a run of paroxysmal multifocal atrial tachycardia with a rate of 180. Patient denies chest pain, shortness of breath, abdominal pain, nausea, vomiting , fevers, chills, diarrhea, constipation, headache, new onset weakness. Physical Exam Vital Signs: Temp Pulse Resp BP Pulse Ox 98.5 F 101 H 20 130/53 H 96 10/17/16 03:34 10/17/16 07:00 10/17/16 03:34 10/17/16 03:34 10/17/16 03:34 Intake & Output 10/16/16 10/17/16 10/18/16 06:59 06:59 06:59 Intake Total 679 960 Output Total 875 800 Balance -196 160 Weight 70.3 kg 68.5 kg Exam: General: Resting comfortably, but wakes to gentle stimuli, alert and answers questions appropriately, no acute respiratory distress HEENT: AT/NC, PERRL, EOMI, oropharynx is moist, pink, no scleral icterus, no conjunctival injection Neck: No JVD, trachea midline Chest: Decreased right base, otherwise clear to auscultation CV: normal S1 and S2, 2/6 systolic murmur, +click, no rub or gallop Abdomen: Soft, nontender to palpation, nondistended, active bowel sounds; no rebound, rigidity, or guarding Extremities: No cyanosis, clubbing or edema Neuro: Cranial nerves II through XII are grossly intact without focal deficits Psych: Normal mood and affect Results Laboratory Results: 10/17/16 05:50 10/17/16 05:50 10/15/16 10/15/16 10/17/16 14:20 14:20 05:50 WBC 11.3 H RBC 3.88 L Hgb 12.1 L Hct 35.4 L MCV 91 MCH 31.1 MCHC 34.1 RDW 12.1 Plt Count 337 Seg Neutrophils % 72.7 Lymphocytes % 9.1 L Monocytes % 15.5 H Eosinophils % 2.0 Basophils % 0.7 Absolute Neutrophils 8.2 Absolute Lymphocytes 1.0 Absolute Monocytes 1.8 H Absolute Eosinophils 0.2 Absolute Basophils 0.1 Sodium Potassium Chloride Carbon Dioxide Anion Gap BUN Creatinine Est GFR ( Amer) Est GFR (Non-Af Amer) Glucose Calcium Fluid Glucose 192 Fluid Total Protein 4.0 Fluid LDH 995 Fluid Amylase 52 10/17/16 05:50 WBC RBC Hgb Hct MCV MCH MCHC RDW Plt Count Seg Neutrophils % Lymphocytes % Monocytes % Eosinophils % Basophils % Absolute Neutrophils Absolute Lymphocytes Absolute Monocytes Absolute Eosinophils Absolute Basophils Sodium 132.3 L Potassium 3.7 Chloride 99 Carbon Dioxide 21 L Anion Gap 12 BUN 16 Creatinine 0.82 Est GFR ( Amer) > 60 Est GFR (Non-Af Amer) > 60 Glucose 163 H Calcium 9.0 Fluid Glucose Fluid Total Protein Fluid LDH Fluid Amylase 10/14/16 19:50 Clean Catch Midstream Urine Culture - Final NO GROWTH 2 DAYS 10/14/16 10/14/16 10/15/16 20:12 20:12 01:38 Creatine Kinase 77 73 CK-MB (CK-2) 7.25 H Troponin I 1.250 NT-Pro-B Natriuret Pep 10/15/16 10/15/16 10/15/16 01:38 07:18 07:18 Creatine Kinase 70 CK-MB (CK-2) 7.10 H 6.89 H Troponin I 1.060 0.864 NT-Pro-B Natriuret Pep 10/17/16 05:50 Creatine Kinase CK-MB (CK-2) Troponin I NT-Pro-B Natriuret Pep 976 H Impressions: Thoracentesis Ultrasound 10/15/16 00:00 IMPRESSION: SUCCESSFUL THORACENTESIS USING ULTRASOUND GUIDANCE. Chest X-Ray 10/16/16 06:00 IMPRESSION: INCREASING LEFT LOWER LOBE AIRSPACE DISEASE. OTHERWISE STABLE APPEARANCE OF THE CHEST. Assessment & Plan - Diagnosis (1) Multifocal atrial tachycardia Is this a current diagnosis for this admission?: YesPlan: Patient had run of multifocal atrial tachycardia today. Will stop metoprolol and start Cardizem this evening. Have discussed this with cardiology, Dr. Adams. (2) Acute renal failure Qualifiers: Acute renal failure type: unspecified Qualified Code(s): N17.9 - Acute kidney failure, unspecified Is this a current diagnosis for this admission?: YesPlan: Improved. Secondary to dehydration (3) Diarrhea Qualifiers: Diarrhea type: unspecified type Qualified Code(s): R19.7 - Diarrhea , unspecified Is this a current diagnosis for this admission?: YesPlan: He has had no further diarrhea since admission and stopping metformin (4) Elevated troponin Is this a current diagnosis for this admission?: YesPlan: Likely secondary to strain. Appreciate cardiology input (5) Pleural effusion Is this a current diagnosis for this admission?: YesPlan: Patient underwent thoracocentesis and 1200mL bloody fluid was aspirated. 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 Patient on Levaquin and cefepime. Patient has had no further fevers and no worsening of his white count. (7) Dementia Qualifiers: Dementia type: Alzheimer's disease Alzheimer's disease onset: unspecified onset Dementia behavioral disturbance: without behavioral disturbance Qualified Code(s): G30.9 - Alzheimer's disease, unspecified; F02.80 - Dementia in other diseases classified elsewhere without behavioral disturbance Is this a current diagnosis for this admission?: YesPlan: Supportive care and Haldol (8) Diabetes mellitus Qualifiers: Diabetes mellitus type: type 2 Diabetes mellitus complication status: with unspecified complications Diabetes mellitus usp insulin use: without usp use Qualified Code(s): E11.8 - Type 2 diabetes mellitus with unspecified complications; Z79.4 - manager intermediate (current) use of insulin Is this a current diagnosis for this admission?: YesPlan: Continue sliding scale insulin. Consider Januvia as an outpatient. Will continue to hold metformin due to diarrhea (9) H/O aortic valve replacement Is this a current diagnosis for this admission?: YesPlan: Patient no longer needs anticoagulation. (10) Lung mass Is this a current diagnosis for this admission?: YesPlan: Consulted Dr. Long This is likely a malignancy. Pending cytology from pleural effusion. (11) UTI (urinary tract infection) Qualifiers: Urinary tract infection type: acute cystitis Hematuria presence: without hematuria Qualified Code(s): N30.00 - Acute cystitis without hematuria Is this a current diagnosis for this admission?: YesPlan: Culture negative
--- NOTE | 2016-10-17 12:43 | PDOC PROGRESS REPORT ---
Subjective Progress Note for:: 10/17/16 Subjective:: Patient seems to be feeling much better. He has significantly less dyspnea. Patient last night had a episode of narrow complex tachycardia which by my review seems to be paroxysmal atrial tachycardia. Patient was noted to be mildly short of breath. It seems, it was precipitated by him walking to the bathroom. This is what was reported by his son. Chest x-ray shows small residual right pleural effusion. Patient had 1200 mL soft sanguinous fluid removed from the right side yesterday. Patient is maintaining sinus rhythm with PAT run as noted above.. Physical Exam Vital Signs: Temp Pulse Resp BP Pulse Ox 98.0 F 100 16 134/67 H 96 10/17/16 08:02 10/17/16 08:02 10/17/16 08:02 10/17/16 08:02 10/17/16 08:02 Intake & Output 10/16/16 10/17/16 10/18/16 06:59 06:59 06:59 Intake Total 679 960 Output Total 875 800 Balance -196 160 Weight 70.3 kg 68.5 kg Exam: GENERAL: well-nourished and in no acute distress. Alert and oriented x3 HEAD: Atraumatic, normocephalic. EYES: Pupils equal round and reactive to light, extraocular movements intact, sclera anicteric, conjunctiva are normal. ENT: TMs normal, nares patent, oropharynx clear without exudates. Moist mucous membranes. No oral ulcerations or bleeding gums noted NECK: supple without lymphadenopathy. Trachea is central. No cervical or axillary lymphadenopathy noted. Carotids are 2+, JVD WNL LUNGS: Respiration seems nonlabored, no significant accessory muscle action noted. A few right basal crackles are noted. CHEST: Palpation of the chest wall shows no significant chest wall tenderness. No other significant abnormalities noted. 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 ABDOMEN: Soft, no significant tenderness appreciated, normoactive bowel sounds. No guarding, no rebound. No rigidity noted . No masses appreciated. EXTREMITIES: Pedal pulses are 1-2+, no calf tenderness noted. No clubbing or cyanosis.trace to 1+ pedal edema noted NEUROLOGICAL: Focused neurological exam showed no significant neurologic deficit. Normal speech, no focal weakness appreciated. PSYCH: Normal mood, normal affect. Judgment and insight within normal limits. SKIN: No significant ecchymosis, rash, ulcerations or signs of pruritus noted. MUSCULOSKELETAL EXAM: No significant joint swelling noted. Results Laboratory Results: 10/17/16 05:50 10/17/16 05:50 10/15/16 10/15/16 10/17/16 14:20 14:20 05:50 WBC 11.3 H RBC 3.88 L Hgb 12.1 L Hct 35.4 L MCV 91 MCH 31.1 MCHC 34.1 RDW 12.1 Plt Count 337 Seg Neutrophils % 72.7 Lymphocytes % 9.1 L Monocytes % 15.5 H Eosinophils % 2.0 Basophils % 0.7 Absolute Neutrophils 8.2 Absolute Lymphocytes 1.0 Absolute Monocytes 1.8 H Absolute Eosinophils 0.2 Absolute Basophils 0.1 Sodium Potassium Chloride Carbon Dioxide Anion Gap BUN Creatinine Est GFR ( Amer) Est GFR (Non-Af Amer) Glucose Calcium Magnesium Albumin Fluid Glucose 192 Fluid Total Protein 4.0 Fluid LDH 995 Fluid Amylase 52 10/17/16 10/17/16 05:50 05:50 WBC RBC Hgb Hct MCV MCH MCHC RDW Plt Count Seg Neutrophils % Lymphocytes % Monocytes % Eosinophils % Basophils % Absolute Neutrophils Absolute Lymphocytes Absolute Monocytes Absolute Eosinophils Absolute Basophils Sodium 132.3 L Potassium 3.7 Chloride 99 Carbon Dioxide 21 L Anion Gap 12 BUN 16 Creatinine 0.82 Est GFR ( Amer) > 60 Est GFR (Non-Af Amer) > 60 Glucose 163 H Calcium 9.0 Magnesium 1.4 L Albumin 2.6 L Fluid Glucose Fluid Total Protein Fluid LDH Fluid Amylase 10/14/16 19:50 Clean Catch Midstream Urine Culture - Final NO GROWTH 2 DAYS 10/14/16 10/14/16 10/15/16 20:12 20:12 01:38 Creatine Kinase 77 73 CK-MB (CK-2) 7.25 H Troponin I 1.250 NT-Pro-B Natriuret Pep 10/15/16 10/15/16 10/15/16 01:38 07:18 07:18 Creatine Kinase 70 CK-MB (CK-2) 7.10 H 6.89 H Troponin I 1.060 0.864 NT-Pro-B Natriuret Pep 10/17/16 05:50 Creatine Kinase CK-MB (CK-2) Troponin I NT-Pro-B Natriuret Pep 976 H Impressions: Thoracentesis Ultrasound 10/15/16 00:00 IMPRESSION: SUCCESSFUL THORACENTESIS USING ULTRASOUND GUIDANCE. Chest X-Ray 10/17/16 00:00 IMPRESSION: IMPROVED AERATION LEFT LUNG. OTHERWISE STABLE APPEARANCE OF THE CHEST. Status: Image reviewed by me - Chest x-ray reviewed by me. Assessment & Plan - Diagnosis (1) Paroxysmal atrial tachycardia Is this a current diagnosis for this admission?: Yes (2) Elevated troponin Is this a current diagnosis for this admission?: Yes (3) Acute renal failure Qualifiers: Acute renal failure type: unspecified Qualified Code(s): N17.9 - Acute kidney failure, unspecified Is this a current diagnosis for this admission?: Yes (4) Hypotension Qualifiers: Hypotension type: unspecified hypotension type Qualified Code(s): I95.9 - Hypotension, unspecified Is this a current diagnosis for this admission?: Yes (5) Pleural effusion Is this a current diagnosis for this admission?: Yes (6) H/O aortic valve replacement Is this a current diagnosis for this admission?: Yes - Notes Notes: Paroxysmal atrial tachycardia: Patient was noted to have an episode of it. Review of records suggest that patient has a history of multifocal atrial tachycardia in the past. Due to his underlying lung condition, feels that patient likely to respond to Cardizem therapy in a state of beta tina therapy. This was discussed with hospitalist was going to institute this. Elevated troponin I: This is felt to be related to hypotension, dehydration and other metabolic reasons rather than acute coronary syndrome. As noted before, due to comorbid diagnosis have opted not to pursue ischemia workup in the absence of significant symptoms. Should patient develop recurrent chest pain which her uncontrolled on medical therapy will then only consider an ischemia workup. Acute renal failure: Patient's renal function seems to have improved and is currently seems baseline Hypo-tension: Most likely related to dehydration from poor by mouth intake. This has resolved. Blood pressures has been stable. Right pleural effusion: This is most likely related to malignancy. Fortunately there has been no rapid recurrence. Chest x-ray review showed minimal right pleural effusion. Status post aortic valve replacement: Clinically seems to be functioning adequately. 2-D echo report shows mild narrowing in the bioprosthetic valve. I'll be happy to follow patient in the office. I believe patient is nearing discharge. Will obtain an EKG tomorrow morning. - Time Time with patient: 15-25 minutes - CODE STATUS was discussed, patient remains full code. Surrogate decision-maker unchanged. Multiple medical problems were addressed.More than 50% of the time spent coordinating care, discussing management plans with involved caregivers. Management plans discussed with involved personnels. Medical decision making was of moderate to high complexity , patient's has multiple severe comorbidities. Medications reviewed and adjusted accordingly: Yes
[2016-10-17] MEDS: MAGNESIUM SULFATE/D5W 1 GM/100 ML RTUPB IV SCH ×3 (13:40→16:05)
[2016-10-17] MEDS: TAMSULOSIN HCL 0.4 MG CAP.SR.24H PO SCH (17:00)
[2016-10-17] MEDS: MAGNESIUM OXIDE 400 MG TABLET PO SCH (17:00)
[2016-10-17] MEDS ORDERED: DILTIAZEM HCL 120 MG CAP.SR.24H PO SCH (22:00)
[2016-10-17] MEDS: CEFEPIME HCL 2 GM in DEXTROSE 5%-WATER 50 ML IV SCH (22:12)
[2016-10-18] MEDS: INSULIN LISPRO 100 UNIT/ML 3 ML VIAL SUBCUT PRN (07:56)
--- NOTE | 2016-10-18 08:36 | EKG REPORT ---
SEVERITY:- ABNORMAL ECG - SINUS TACHYCARDIA MULTIPLE PREMATURE COMPLEXES, SUPRAVENTRICULAR PROBABLE LEFT ATRIAL ABNORMALITY RIGHT BUNDLE BRANCH BLOCK : Confirmed by: Jenniffer Adams 18-Oct-2016 08:36:04
[2016-10-18 09:21] LABS: ANION GAP 11 (5-19); BLOOD UREA NITROGEN 17 mg/dL (7-20); CARBON DIOXIDE 25 mmol/L (22-30); CHLORIDE 97 mmol/L (98-107); CREATININE RESULT 0.93 mg/dL (0.52-1.25); GLUCOSE 168 mg/dL (75-110); MAGNESIUM 1.9 mg/dL (1.6-2.3); SODIUM 133.3 mmol/L (137-145)
[2016-10-18] MEDS ORDERED: METOPROLOL SUCCINATE 25 MG TAB.SR.24H PO ONE (09:34)
[2016-10-18] MEDS ORDERED: METOPROLOL SUCCINATE 25 MG TAB.SR.24H PO SCH (10:00)
[2016-10-18] MEDS: MEGESTROL ACETATE SUSP 400 MG/10 ML UDCUP PO SCH (10:12)
[2016-10-18] MEDS: MAGNESIUM OXIDE 400 MG TABLET PO SCH (10:12)
[2016-10-18] MEDS: FAMOTIDINE 20 MG TABLET PO SCH (10:12)
[2016-10-18] MEDS ORDERED: LEVOFLOXACIN 750 MG TABLET PO SCH (11:00)
[2016-10-18 12:33] VITALS: BP 139/64
--- NOTE | 2016-10-18 14:10 | PDOC DISCHARGE SUMMARY ---
General - Admit/Disc Date/PCP Admission Date/Primary Care Provider: 10/14/16 18:46 Discharge Date: 10/18/16 - Discharge Diagnosis (1) Multifocal atrial tachycardia Is this a current diagnosis for this admission?: Yes (2) Acute renal failure Is this a current diagnosis for this admission?: Yes (3) Diarrhea Is this a current diagnosis for this admission?: Yes (4) Elevated troponin Is this a current diagnosis for this admission?: Yes (5) Pleural effusion Is this a current diagnosis for this admission?: Yes (6) Pneumonia Is this a current diagnosis for this admission?: Yes (7) Dementia Is this a current diagnosis for this admission?: Yes (8) Diabetes mellitus Is this a current diagnosis for this admission?: Yes (9) H/O aortic valve replacement Is this a current diagnosis for this admission?: Yes (10) Lung mass Is this a current diagnosis for this admission?: Yes (11) UTI (urinary tract infection) Is this a current diagnosis for this admission?: Yes - Additional Information Resuscitation Status: Full Code Discharge Diet: Regular Discharge Activity: Activity As Tolerated, Supervised Activity Home Medications: Aspirin [Aspirin EC] 81 mg PO DAILY 10/14/16 Tamsulosin HCl [Flomax 0.4 mg Cap.sr] 0.4 mg PO QPM 10/14/16 Diltiazem HCl [Cardizem Cd 120 mg Capsule] 120 mg PO QHS #30 cap.sr.24h Magnesium Oxide [Mag-Ox 400 mg Tablet] 400 mg PO BID #30 tablet 10/18/16 Megestrol Acetate [Megace] 400 mg PO DAILY 30 Days 10/18/16 Metoprolol Succinate [Toprol Xl 25 mg Tab.sr] 25 mg PO Q12 tab.sr.24h 10/18/16 History of Present Illness History of Present Illness: ARIANA LOVE III is a 71 year old male for a history of hypertension, hyperlipidemia, diabetes mellitus, and multiple malignancies dementia who presents to the ER on the company of his son and daughter with reports of fatigue and shortness of breath. History is primarily obtained from the son and daughter who are at bedside. I saw this patient in the emergency department on 10/10/2016 at which time I offered him admission. At that time, they declined in favor of outpatient workup. Patient returns after not eating or drinking for 2 days. Patient has not been eating or drinking for 2 days. He 's had diarrhea for several months. He's also had increasing dyspnea on exertion. He reports Plavix was stopped 4 days ago. In the emergency room recently been acute renal failure with an elevated troponin. He is referred to hospital service for evaluation of these complaints. Hospital Course Hospital Course: Patient was rehydrated with improvement of his acute renal failure. Patient was started on cefepime and Levaquin with improvement of his white count. Patient's blood and urine cultures did not grow anything. He is unable to provide sputum. Patient's Plavix had been on hold for 6 days and a thoracocentesis was obtained and patient had 1200 mL of bloody fluid removed from his right lung. Patient was complaining of diarrhea prior to admission and his metformin was held. He had an improvement of his diarrhea after this was unable to provide any specimens. Patient was monitored with sliding scale insulin and hemoglobin A1c of 8.5%. Patient is advised to follow-up with his primary care physician to discuss reinitiation of hypoglycemic agents if his appetite significantly improves. Echocardiogram was performed and this revealed a normal EF and grade 2/4 diastolic dysfunction. Patient was monitored on telemetry and at one point developed multifocal atrial tachycardia. Cardiology was consulted. Patient was started on Cardizem and this and improved. He was started on Megace with improvement of his appetite. At the time of this dictation, the pathology was still pending and he is advised to follow-up with his oncologist for discussion. Physical Exam Vital Signs: Temp Pulse Resp BP Pulse Ox 98.4 F 121 H 20 139/64 H 95 10/18/16 12:31 10/18/16 12:31 10/18/16 12:31 10/18/16 12:31 10/18/16 12:31 Intake & Output 10/17/16 10/18/16 10/19/16 06:59 06:59 06:59 Intake Total 960 1040 Output Total 800 Balance 160 1040 Weight 68.5 kg 68.7 kg Exam: General: Resting comfortably, but wakes to gentle stimuli, alert and answers questions appropriately, no acute respiratory distress HEENT: AT/NC, PERRL, EOMI, oropharynx is moist, pink, no scleral icterus, no conjunctival injection Neck: No JVD, trachea midline Chest: Decreased right base, otherwise clear to auscultation CV: normal S1 and S2, 2/6 systolic murmur, +click, no rub or gallop Abdomen: Soft, nontender to palpation, nondistended, active bowel sounds; no rebound, rigidity, or guarding Extremities: No cyanosis, clubbing or edema Neuro: Cranial nerves II through XII are grossly intact without focal deficits Psych: Normal mood and affect Results Laboratory Results: 10/17/16 05:50 10/18/16 08:37 10/18/16 08:37 Sodium 133.3 L Potassium 4.0 Chloride 97 L Carbon Dioxide 25 Anion Gap 11 BUN 17 Creatinine 0.93 Est GFR ( Amer) > 60 Est GFR (Non-Af Amer) > 60 Glucose 168 H Calcium 9.0 Magnesium 1.9 10/14/16 10/14/16 10/15/16 20:12 20:12 01:38 Creatine Kinase 77 73 CK-MB (CK-2) 7.25 H Troponin I 1.250 NT-Pro-B Natriuret Pep 10/15/16 10/15/16 10/15/16 01:38 07:18 07:18 Creatine Kinase 70 CK-MB (CK-2) 7.10 H 6.89 H Troponin I 1.060 0.864 NT-Pro-B Natriuret Pep 10/17/16 05:50 Creatine Kinase CK-MB (CK-2) Troponin I NT-Pro-B Natriuret Pep 976 H Impressions: Thoracentesis Ultrasound 10/15/16 00:00 IMPRESSION: SUCCESSFUL THORACENTESIS USING ULTRASOUND GUIDANCE. Chest X-Ray 10/17/16 00:00 IMPRESSION: IMPROVED AERATION LEFT LUNG. OTHERWISE STABLE APPEARANCE OF THE CHEST. Status: Imported from PACS Qualifiers PATEINT BEING DISCHARGED WITH ANY OF THE FOLLOWING DIAGNOSIS?: Heart Failure HF Pt being discharged on ACEI for LVEF less than 40%?: No Reason(s) for not prescribing ACEI:: Not indicated - EF greater than 40 HF Pt being discharged on ARBS for LVEF less than 40%?: No Reason(s) for not prescribing ARBS:: Not indicated - EF greater than 40 HF Pt with Afib discharged with Warfarin?: No Reason(s) for not prescribing Warfarin:: Not indicated - No A. fib HF Pt discharged on evidence-based Beta Sabi:: Yes Plan Time Spent: Less than 30 Minutes
--- NOTE | 2016-10-18 20:02 | PDOC PROGRESS REPORT ---
Subjective Progress Note for:: 10/18/16 Subjective:: Patient seems to be feeling much better. He has significantly less dyspnea. Patient however noted to be more weak. Patient was noted to be mildly short of breath. This is what was reported by his son. Patient had 1200 mL soft sanguinous fluid removed from the right side yesterday. Patient is maintaining sinus rhythm with frequent APCs. Physical Exam Vital Signs: Temp Pulse Resp BP Pulse Ox 98.4 F 121 H 20 139/64 H 95 10/18/16 12:31 10/18/16 12:31 10/18/16 12:31 10/18/16 12:31 10/18/16 12:31 Intake & Output 10/17/16 10/18/16 10/19/16 06:59 06:59 06:59 Intake Total 960 1040 Output Total 800 Balance 160 1040 Weight 68.5 kg 68.7 kg Exam: GENERAL: well-nourished and in no acute distress. Alert and oriented 2 HEAD: Atraumatic, normocephalic. EYES: Pupils equal round and reactive to light, extraocular movements intact, sclera anicteric, conjunctiva are normal. ENT: TMs normal, nares patent, oropharynx clear without exudates. Moist mucous membranes. No oral ulcerations or bleeding gums noted NECK: supple without lymphadenopathy. Trachea is central. No cervical or axillary lymphadenopathy noted. Carotids are 2+, JVD WNL LUNGS: Respiration seems nonlabored, no significant accessory muscle action noted. Breath sounds clear to auscultation bilaterally and equal noted. No wheezes rales or rhonchi noted. No significant dullness noted on percussion. CHEST: Palpation of the chest wall shows no significant chest wall tenderness. No other significant abnormalities noted. 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 ABDOMEN: Soft, no significant tenderness appreciated, normoactive bowel sounds. No guarding, no rebound. No rigidity noted . No masses appreciated. EXTREMITIES: Pedal pulses are 1-2+, no calf tenderness noted. No clubbing or cyanosis.negative for pedal edema noted NEUROLOGICAL: Focused neurological exam showed no significant neurologic deficit. Normal speech, no focal weakness appreciated. PSYCH: Normal mood, normal affect. Judgment and insight not checked today SKIN: No significant ecchymosis, rash, ulcerations or signs of pruritus noted. MUSCULOSKELETAL EXAM: No significant joint swelling noted. Results Laboratory Results: 10/17/16 05:50 10/18/16 08:37 10/18/16 08:37 Sodium 133.3 L Potassium 4.0 Chloride 97 L Carbon Dioxide 25 Anion Gap 11 BUN 17 Creatinine 0.93 Est GFR ( Amer) > 60 Est GFR (Non-Af Amer) > 60 Glucose 168 H Calcium 9.0 Magnesium 1.9 10/14/16 10/14/16 10/15/16 20:12 20:12 01:38 Creatine Kinase 77 73 CK-MB (CK-2) 7.25 H Troponin I 1.250 NT-Pro-B Natriuret Pep 10/15/16 10/15/16 10/15/16 01:38 07:18 07:18 Creatine Kinase 70 CK-MB (CK-2) 7.10 H 6.89 H Troponin I 1.060 0.864 NT-Pro-B Natriuret Pep 10/17/16 05:50 Creatine Kinase CK-MB (CK-2) Troponin I NT-Pro-B Natriuret Pep 976 H Impressions: Thoracentesis Ultrasound 10/15/16 00:00 IMPRESSION: SUCCESSFUL THORACENTESIS USING ULTRASOUND GUIDANCE. Chest X-Ray 10/17/16 00:00 IMPRESSION: IMPROVED AERATION LEFT LUNG. OTHERWISE STABLE APPEARANCE OF THE CHEST. Assessment & Plan - Diagnosis (1) Paroxysmal atrial tachycardia Is this a current diagnosis for this admission?: Yes (2) Elevated troponin Is this a current diagnosis for this admission?: Yes (3) Acute renal failure Qualifiers: Acute renal failure type: unspecified Qualified Code(s): N17.9 - Acute kidney failure, unspecified Is this a current diagnosis for this admission?: Yes (4) Hypotension Qualifiers: Hypotension type: unspecified hypotension type Qualified Code(s): I95.9 - Hypotension, unspecified Is this a current diagnosis for this admission?: Yes (5) Pleural effusion Is this a current diagnosis for this admission?: Yes (6) H/O aortic valve replacement Is this a current diagnosis for this admission?: Yes - Notes Notes: Paroxysmal atrial tachycardia: Patient was started on Cardizem yesterday. Patient had no recurrence but heart rate slightly on the high side. Will consider readjusting Cardizem dose. Elevated troponin I: Patient has remained stable. It was felt that because of comorbid diagnosis and in the absence of chest pain, no ischemia workup is being planned. Acute renal failure: Patient's renal function seems to have improved and is currently seems baseline Hypo-tension: Most likely related to dehydration from poor by mouth intake. This has resolved. Blood pressures has been stable. Right pleural effusion: This is most likely related to malignancy. Fortunately there has been no rapid recurrence. Patient to follow-up with oncologist. Status post aortic valve replacement: Clinically seems to be functioning adequately. 2-D echo report shows mild narrowing in the bioprosthetic valve. I'll be happy to follow patient in the office. - Time Time with patient: 15-25 minutes - CODE STATUS was discussed, patient remains full code. Surrogate decision-maker unchanged. Multiple medical problems were addressed.More than 50% of the time spent coordinating care, discussing management plans with involved caregivers. Management plans discussed with involved personnels. Medical decision making was of moderate to high complexity , patient's has multiple severe comorbidities. Medications reviewed and adjusted accordingly: Yes
== END 2016-10-18 13:04 | disposition home health service (06) | DRG 682 ==
LOC: ER 15:41 → UNDOADMIN 18:32 → EH 18:32 → 3S 22:54
PROVIDERS: ADMIT Family Medicine; ATTEND Family Medicine
PROC: 0W993ZX Drainage of Right Pleural Cavity, Percutaneous Approach, Diagnostic (ICD-10-PCS; principal; 2016-10-15)
DX: N17.9 Acute kidney failure, unspecified (principal); J18.9 Pneumonia, unspecified organism; J90 Pleural effusion, not elsewhere classified; N30.00 Acute cystitis without hematuria; T82.857A Stenosis of other cardiac prosthetic devices, implants and grafts, initial encounter; I47.1 Supraventricular tachycardia; I10 Essential (primary) hypertension; I95.9 Hypotension, unspecified; E11.8 Type 2 diabetes mellitus with unspecified complications; I08.1 Rheumatic disorders of both mitral and tricuspid valves; I27.2 Other secondary pulmonary hypertension; R91.8 Other nonspecific abnormal finding of lung field; C61 Malignant neoplasm of prostate; R77.8 Other specified abnormalities of plasma proteins; R19.7 Diarrhea, unspecified; F02.80 Dementia in other diseases classified elsewhere, unspecified severity, without behavioral disturbance, psychotic disturbance, mood disturbance, and anxiety; G30.9 Alzheimer's disease, unspecified; Z79.01 Long term (current) use of anticoagulants; Z79.82 Long term (current) use of aspirin; Z79.84 Long term (current) use of oral hypoglycemic drugs
CPT/HCPCS: 32555; 36415; 71010; 71020; 80048; 80053; 80061; 81001; 82040; 82150; 82550; 82553; 82945; 82962; 83036; 83615; 83735; 83880; 84157; 84484; 85025; 85610; 85730; 87015; 87040; 87070; 87075; 87086; 87116; 87205; 87206; 88305; 88313; 88341; 88342; 89050; 93005; 93010; 93306; 94799; 99285; G8978-GP; G8979-GP; J0692; J1630; J1644; J1815; J3475; J3490; J7030

== ENCOUNTER 2016-10-22 13:31 | Inpatient (IN) | payer MEDICARE ==
--- NOTE | 2016-10-22 14:35 | ER Document Report ---
ED Medical Screen (RME) - General Chief Complaint: Low Blood Pressure Stated Complaint: BLOOD PRESSURE PROBLEMS Time Seen by Provider: 10/22/16 14:18 Notes: The patient is a 71-year-old male, past medical history prostate cancer, presents from his primary care physician's office after his blood pressure was in the 70s over 30s. He was admitted to the hospital last week for fluid on his lungs. He was scheduled for a PET scan today, but his blood sugar was too high. That is when he saw his primary care physician. Patient says he is feeling overall weakness and tiredness for the past few days. Denies focal weakness, fevers, cough, shortness of breath, nausea, vomiting, numbness, tingling or headache. I have greeted and performed a rapid initial assessment of this patient. A comprehensive ED assessment and evaluation of the patient, analysis of test results and completion of the medical decision making process will be conducted by additional ED providers. TRAVEL OUTSIDE OF THE [place] IN LAST 30 DAYS: No - Related Data Allergies/Adverse Reactions: No Known Allergies Allergy (Verified 10/14/16 16:02) Past Medical History - Social History Family history: Reviewed & Not Pertinent - Past Medical History Cardiac Medical History: Reports: Hx Hypertension - meds x yrs, Hx Heart Murmur Denies: Hx Coronary Artery Disease, Hx Heart Attack Pulmonary Medical History: Denies: Hx Asthma, Hx Bronchitis, Hx COPD, Hx Pneumonia Neurological Medical History: Denies: Hx Cerebrovascular Accident, Hx Seizures Endocrine Medical History: Denies: Hx Diabetes Mellitus Type 1, Hx Diabetes Mellitus Type 2 Renal/ Medical History: Denies: Hx Peritoneal Dialysis Musculoskeltal Medical History: Denies Hx Arthritis Psychiatric Medical History: Reports: Hx Dementia Past Surgical History: Reports: Hx Cardiac Surgery - valve replacement, Hx Carotid Endarterectomy, Hx Tonsillectomy, Hx Valve Replacement - Status post aortic valve replacement with bioprosthetic valve - Immunizations Hx Diphtheria, Pertussis, Tetanus Vaccination: No Physical Exam - Vital signs Vitals: Temp 97.4 F 10/22/16 14:02 Course - Vital Signs Vital signs: Temp Pulse Resp BP Pulse Ox 97.4 F 54 L 18 91/56 L 96 10/22/16 14:02 10/22/16 14:03 10/22/16 14:03 10/22/16 14:03 10/22/16 14:03
[2016-10-22 15:01] LABS: ABSOLUTE BASOPHILS # (AUTO) 0.1 10^3/uL (0.0-0.2); ABSOLUTE EOSINOPHILS # (AUTO) 0.1 10^3/uL (0.0-0.6); ABSOLUTE LYMPHOCYTES (AUTO) 1.1 10^3/uL (0.5-4.7); ABSOLUTE MONOCYTES (AUTO) 1.5 10^3/uL (0.1-1.4); BASOPHILS % (AUTO) 0.3 % (0-2); EOSINOPHILS % (AUTO) 0.4 % (0-6); HEMATOCRIT 39.4 % (37.9-51.0); HEMOGLOBIN 13.1 g/dL (13.5-17.0); HGB HCT DIFFERENCE -0.1; LYMPHOCYTES % (AUTO) 6.6 % (13-45); MEAN CORPUSCULAR HEMOGLOBIN 30.9 pg (27.0-33.4); MEAN CORPUSCULAR HGB CONC 33.1 g/dL (32.0-36.0); MEAN CORPUSCULAR VOLUME 93 fl (80-97); MONOCYTES % (AUTO) 8.9 % (3-13); RED BLOOD COUNT 4.23 10^6/uL (4.35-5.55); RED CELL DISTRIBUTION WIDTH 12.3 % (11.5-14.0); SEGMENTED NEUTROPHILS % (AUTO) 83.8 % (42-78); WHITE BLOOD COUNT 16.7 10^3/uL (4.0-10.5)
[2016-10-22 15:19] LABS: ALANINE AMINOTRANSFERASE 27 U/L (21-72); ALBUMIN 3.4 g/dL (3.5-5.0); ALKALINE PHOSPHATASE 84 U/L (38-126); ANION GAP 14 (5-19); ASPARTATE AMINO TRANSFERASE 24 U/L (17-59); BILIRUBIN,DIRECT 0.5 mg/dL (0.0-0.4); BLOOD UREA NITROGEN 32 mg/dL (7-20); CALCIUM 9.6 mg/dL (8.4-10.2); CARBON DIOXIDE 27 mmol/L (22-30); CHLORIDE 89 mmol/L (98-107); CREATINE KINASE 38 U/L (55-170); CREATININE RESULT 1.14 mg/dL (0.52-1.25); GLUCOSE 219 mg/dL (75-110); POTASSIUM 4.6 mmol/L (3.6-5.0); SODIUM 130.1 mmol/L (137-145); TOTAL PROTEIN 6.7 g/dL (6.3-8.2)
[2016-10-22] MEDS ORDERED: NORMAL SALINE 1000 ML 1,000 ML IV ONE (15:35)
[2016-10-22 15:38] LABS: TROPONIN I 0.098 ng/mL
--- NOTE | 2016-10-22 16:36 | ER Document Report ---
ED Blood Pressure Problem - General Chief Complaint: Low Blood Pressure Stated Complaint: BLOOD PRESSURE PROBLEMS Time Seen by Provider: 10/22/16 14:18 Mode of Arrival: Wheelchair Information source: Patient, Relative Notes: Patient presents with his son after they were seen at his primary doctor office and was hypotensive with blood pressure 80/50s. Patient was advised to come to the emergency department for further evaluation. Patient's son reports that patient was to get a PET scan today but his blood sugar was over 200 and they would not complete the study with his blood sugar this time. Patient went to his primary doctor to address the elevated blood sugar and was found to be hypotensive. Patient denies any complaints other than fatigue and generalized weakness. Patient was recently discharged from this hospital on the eighth of this month after being treated for acute kidney failure as well as a right pleural effusion. Patient did have 1200 mL's of fluid drained from this pleural effusion during his admission. Patient's family suspects that he likely has prostate cancer, although they are not certain of what type cancer patient has as a PET scan was to be done today with follow-up with oncology on Tuesday for a more definitive diagnosis. Patient denies any fever, cough, shortness of breath, nausea, vomiting, diarrhea, or pain. Upon patient's most recent discharge from the hospital he was started on 3 new medications including Mag-Ox, Megace, and Cardizem 120 mg every evening. In addition to this, patient takes metoprolol 25 mg orally twice a day as well as Flomax 0.4 mg in the evening. TRAVEL OUTSIDE OF THE [place] IN LAST 30 DAYS: No - HPI Patient complains to provider of: Low blood pressure Onset: This afternoon Onset/Duration: Gradual Quality of pain: No pain Pain Level: Denies Associated symptoms: Weakness. denies: Lightheaded, Nausea Similar symptoms previously: Yes Recently seen / treated by doctor: Yes - Related Data Allergies/Adverse Reactions: No Known Allergies Allergy (Verified 10/14/16 16:02) Home Medications: Current Home Medications Aspirin [Aspirin 81 mg Chewable Tablet] 81 mg PO DAILY 10/22/16 [History] Diltiazem HCl [Diltiazem 24Hr Cd] 120 mg PO QHS 10/22/16 [History] Magnesium Oxide [Mag-Ox 400 mg Tablet] 400 mg PO DAILY 10/22/16 [History] Megestrol Acetate [Megace] 400 mg PO DAILY 10/22/16 [History] Tamsulosin HCl [Flomax 0.4 mg Cap.sr] 0.4 mg PO QPM 10/22/16 [History] Past Medical History - General Information source: Patient - Social History Smoking Status: Unknown if Ever Smoked Chew tobacco use (# tins/day): No Frequency of alcohol use: None Drug Abuse: None Lives with: Family Family History: CAD Patient has suicidal ideation: No Patient has homicidal ideation: No - Past Medical History Cardiac Medical History: Reports: Hx Hypertension - meds x yrs, Hx Heart Murmur Denies: Hx Coronary Artery Disease, Hx Heart Attack Pulmonary Medical History: Denies: Hx Asthma, Hx Bronchitis, Hx COPD, Hx Pneumonia Neurological Medical History: Denies: Hx Cerebrovascular Accident, Hx Seizures Endocrine Medical History: Denies: Hx Diabetes Mellitus Type 1, Hx Diabetes Mellitus Type 2 Renal/ Medical History: Denies: Hx Peritoneal Dialysis Malignancy Medical History: Reports Other - Possible prostate cancer, right lung pleural effusion Musculoskeltal Medical History: Denies Hx Arthritis Psychiatric Medical History: Reports: Hx Dementia Past Surgical History: Reports: Hx Cardiac Surgery - valve replacement, Hx Carotid Endarterectomy, Hx Tonsillectomy, Hx Valve Replacement - Status post aortic valve replacement with bioprosthetic valve - Immunizations Hx Diphtheria, Pertussis, Tetanus Vaccination: No Review of Systems - Review of Systems Constitutional: Weakness, Other - Fatigue, Recent illness - Recently treated for acute renal failure. denies: Fever EENT: No symptoms reported Cardiovascular: No symptoms reported. denies: Chest pain, Dizziness Respiratory: No symptoms reported. denies: Cough, Short of breath Gastrointestinal: No symptoms reported. denies: Abdominal pain, Diarrhea, Nausea, Vomiting Genitourinary: No symptoms reported. denies: Dysuria, Flank pain Male Genitourinary: No symptoms reported Musculoskeletal: No symptoms reported. denies: Back pain, Muscle pain Skin: No symptoms reported Hematologic/Lymphatic: No symptoms reported Neurological/Psychological: No symptoms reported Physical Exam - Vital signs Vitals: Temp 97.4 F 10/22/16 14:02 - General General appearance: Alert, Other - Drowsy, arouses easily to voice In distress: Mild - HEENT Head: Normocephalic, Atraumatic Eyes: Normal Conjunctiva: Normal Nasal: Normal Mouth/Lips: Normal Mucous membranes: Dry Neck: Normal, Supple - Respiratory Respiratory status: No respiratory distress Chest status: Nontender Breath sounds: Other - Diminished breath sounds right lower lobe Chest palpation: Normal - Cardiovascular Rhythm: Regular Heart sounds: S1 appreciated, S2 appreciated Murmur: Yes - systolic - Abdominal Inspection: Normal Distension: No distension Bowel sounds: Normal Tenderness: Nontender Organomegaly: No organomegaly - Back Back: Normal, Nontender. No: CVA tenderness - Extremities General upper extremity: Normal inspection, Nontender. No: Edema General lower extremity: Normal inspection, Nontender. No: Edema - Neurological Cognition: Normal [place] Coma Scale Eye Opening: Spontaneous [place] Coma Scale Verbal: Oriented Mildred Coma Scale Motor: Obeys Commands [place] Coma Scale Total: 15 - Psychological Associated symptoms: Normal affect, Normal mood - Skin Skin Temperature: Warm Skin Moisture: Dry Skin Color: Pale Course - Re-evaluation Re-evalutation: 10/22/16 16:[address] Mullins regarding patient presentation, advises consulting with hospitalist for admission. Discussed planning care with patient and family who agrees with for likely admission. Consulted with Dr. Loco who agrees to come evaluate patient for admission. Reviewed patient's diagnostic test results. 10/22/16 15:30 Hypotension improved after IV fluid bolus. - Vital Signs Vital signs: Temp Pulse Resp BP Pulse Ox 97.4 F 54 L 18 102/70 94 10/22/16 14:02 10/22/16 14:03 10/22/16 14:03 10/22/16 17:31 10/22/16 17:31 - Laboratory Result Diagrams: 10/22/16 14:41 10/22/16 14:41 Laboratory results interpreted by me: 10/22/16 10/22/16 10/22/16 14:41 14:41 17:45 WBC 16.7 H RBC 4.23 L Hgb 13.1 L Plt Count 471 H Seg Neutrophils % 83.8 H Lymphocytes % 6.6 L Absolute Neutrophils 14.0 H Absolute Monocytes 1.5 H Sodium 130.1 L Chloride 89 L BUN 32 H Glucose 219 H Direct Bilirubin 0.5 H Creatine Kinase 38 L Albumin 3.4 L Urine Protein 30 H Urine Glucose (UA) >=500 H Urine Ketones 20 H 10/22/16 18:11 Labs- Entire Visit 05/05/2910/22/16 10/22/16 14:41 14:41 14:41 WBC 16.7 H RBC 4.23 L Hgb 13.1 L Hct 39.4 MCV 93 MCH 30.9 MCHC 33.1 RDW 12.3 Plt Count 471 H Seg Neutrophils % 83.8 H Lymphocytes % 6.6 L Monocytes % 8.9 Eosinophils % 0.4 Basophils % 0.3 Absolute Neutrophils 14.0 H Absolute Lymphocytes 1.1 Absolute Monocytes 1.5 H Absolute Eosinophils 0.1 Absolute Basophils 0.1 Sodium 130.1 L Potassium 4.6 Chloride 89 L Carbon Dioxide 27 Anion Gap 14 BUN 32 H Creatinine 1.14 Est GFR ( Amer) > 60 Est GFR (Non-Af Amer) > 60 Glucose 219 H Lactic Acid Calcium 9.6 Total Bilirubin 1.0 Direct Bilirubin 0.5 H Indirect Bilirubin Not Reportable Neonat Total Bilirubin Not Reportable AST 24 ALT 27 Alkaline Phosphatase 84 Creatine Kinase 38 L Troponin I 0.098 NT-Pro-B Natriuret Pep 896 Total Protein 6.7 Albumin 3.4 L Lipase 138.0 Urine Color Urine Appearance Urine pH Ur Specific [place] Urine Protein Urine Glucose (UA) Urine Ketones Urine Blood Urine Nitrite Urine Bilirubin Urine Urobilinogen Ur Leukocyte Esterase Urine WBC (Auto) Urine RBC (Auto) U Hyaline Cast (Auto) Urine Mucus (Auto) Urine Ascorbic Acid 10/22/16 10/22/16 14:41 17:45 WBC RBC Hgb Hct MCV MCH MCHC RDW Plt Count Seg Neutrophils % Lymphocytes % Monocytes % Eosinophils % Basophils % Absolute Neutrophils Absolute Lymphocytes Absolute Monocytes Absolute Eosinophils Absolute Basophils Sodium Potassium Chloride Carbon Dioxide Anion Gap BUN Creatinine Est GFR ( Amer) Est GFR (Non-Af Amer) Glucose Lactic Acid 1.7 Calcium Total Bilirubin Direct Bilirubin Indirect Bilirubin Neonat Total Bilirubin AST ALT Alkaline Phosphatase Creatine Kinase Troponin I NT-Pro-B Natriuret Pep Total Protein Albumin Lipase Urine Color YELLOW Urine Appearance CLEAR Urine pH 5.0 Ur Specific [place] 1.022 Urine Protein 30 H Urine Glucose (UA) >=500 H Urine Ketones 20 H Urine Blood NEGATIVE Urine Nitrite NEGATIVE Urine Bilirubin NEGATIVE Urine Urobilinogen NEGATIVE Ur Leukocyte Esterase NEGATIVE Urine WBC (Auto) 2 Urine RBC (Auto) 1 U Hyaline Cast (Auto) 2 Urine Mucus (Auto) RARE Urine Ascorbic Acid NEGATIVE - Diagnostic Test Radiology reviewed: Reports reviewed Discharge - Discharge Clinical Impression: Pleural effusion, Mild dehydration, Elevated troponin Hypotension Qualifiers: Hypotension type: unspecified hypotension type Qualified Code(s): I95.9 - Hypotension, unspecified Condition: Fair Disposition: ADMITTED INPATIENT Admitting Provider: Hospitalist
[2016-10-22 18:05] LABS: APPEARANCE,URINE CLEAR; BILIRUBIN,URINE NEGATIVE (NEGATIVE); GLUCOSE, URINE >=500 mg/dL (NEGATIVE); KETONES,URINE 20 mg/dL (NEGATIVE); LEUKOCYTE ESTERASE,URINE NEGATIVE (NEGATIVE); NITRITE,URINE NEGATIVE (NEGATIVE); PROTEIN,URINE 30 mg/dL (NEGATIVE); URINE SPECIFIC GRAVITY 1.022; UROBILINOGEN,URINE NEGATIVE mg/dL (<2.0)
[2016-10-22] MEDS ORDERED: DEXTROSE 40% GEL 15 GM TUBE PO PRN ×2 (18:36)
[2016-10-22] MEDS ORDERED: DEXTROSE 50%-WATER 25 GM/50 ML DISP.SYRIN IV PRN ×2 (18:36)
[2016-10-22] MEDS ORDERED: GLUCAGON,HUMAN RECOMB 1 MG INJ IM PRN (18:36)
--- NOTE | 2016-10-22 18:36 | PDOC H&P ---
History of Present Illness Admission Date/PCP: EVELYN SANCHEZ MD History of Present Illness: ARIANA LOVE III is a 71 year old white male with a past medical history significant for diabetes mellitus, history of prostate cancer, recent pleural effusion status post thoracentesis, hypertension and dementia who presents to the service with hypotension. The patient had a PET scan scheduled for today when he presented there his blood sugars were a bit over 200 and they could not perform the test. They sent him home to try and drink more fluids so that he could come back and later have the test repeated. The patient was then noted to be hypotensive with blood pressures systolic at 90 but he was directed to come into the emergency room. In the emergency room the patient's systolic blood pressure was found to be in the 80s. The patient complained of generalized weakness but otherwise had no complaints. He was given a bolus of fluid which brought his blood pressure up to 1:15 systolic. By the time I met him at the bedside his blood pressure was back down to 101. The patient's medications have been changed around. He is no longer on metoprolol but is maintained on Flomax and Cardizem. The patient' s family who is at the bedside states that he doesn't have a good appetite and doesn't eat or drink much of anything. I do note that in the emergency room he was found to have an elevated white blood cell count of 16.7. X-ray was done which showed large right pleural effusion. On his previous admission in the month he he had a thoracentesis with 1200 mL of fluid taken off at that time. BNP was also elevated at 800 and lactic acid was 1.7. The patient denies any fevers, chills, nausea vomiting. Past Medical History Cardiac Medical History: Reports: Hyperlipidema, Hypertension - meds x yrs, Heart Murmur Denies: Coronary Artery Disease, Myocardial Infarction Pulmonary Medical History: Denies: Asthma, Bronchitis, Chronic Obstructive Pulmonary Disease (COPD), Pneumonia Neurological Medical History: Denies: Seizures Endocrine Medical History: Reports: Diabetes Mellitus Type 2 Malignancy Medical History: Reports: Other - Possible prostate cancer, right lung pleural effusion Musculoskeltal Medical History: Denies: Arthritis Psychiatric Medical History: Reports: Dementia Hematology: Denies: Anemia Past Surgical History Past Surgical History: Reports: Carotid Endarterectomy, Tonsillectomy, Valve Replacement - Status post aortic valve replacement with bioprosthetic valve Social History Lives with: Family Smoking Status: Unknown if Ever Smoked Frequency of Alcohol Use: None Hx Recreational Drug Use: No Drugs: None Hx Prescription Drug Abuse: No - Advance Directive Resuscitation Status: Full Code Family History Family History: CAD Parental Family History Reviewed: Yes Children Family History Reviewed: Yes Sibling(s) Family History Reviewed.: Yes Medication/Allergy Home Medications: Aspirin [Aspirin 81 mg Chewable Tablet] 81 mg PO DAILY 10/22/16 Diltiazem HCl [Diltiazem 24Hr Cd] 120 mg PO QHS 10/22/16 Magnesium Oxide [Mag-Ox 400 mg Tablet] 400 mg PO DAILY 10/22/16 Megestrol Acetate [Megace] 400 mg PO DAILY 10/22/16 Tamsulosin HCl [Flomax 0.4 mg Cap.sr] 0.4 mg PO QPM 10/22/16 Allergies/Adverse Reactions: No Known Allergies Allergy (Verified 10/14/16 16:02) Physical Exam Vital Signs: Temp Pulse Resp BP Pulse Ox 97.4 F 54 L 18 102/70 94 10/22/16 14:02 10/22/16 14:03 10/22/16 14:03 10/22/16 17:31 10/22/16 17:31 Intake & Output 10/21/16 10/22/16 10/23/16 06:59 06:59 06:59 Weight 68.3 kg Physical exam: Gen.: This a well-developed undernourished thin elderly white male resting in bed currently in no acute distress HEENT: Normocephalic, atraumatic. Trachea is midline. No lymphadenopathy. No thyromegaly. Sclera are not icteric. Heart: Regular rate and rhythm. Detect any murmurs rubs or gallops. Lungs: Diminished at the bases bilaterally right greater than left with equal rise and fall of the chest. Abdomen: Flat soft, nontender nondistended. Normoactive bowel sounds. Extremities: Small caliber. Strength 5 out of 5. Pulse 1+ bilaterally in the lower extremities. No clubbing cyanosis or edema. Neuro: He is awake and alert. He is cracking jokes. Cranial nerves II through XII are specifically intact. Results Laboratory Results: 10/22/16 14:41 10/22/16 14:41 10/22/16 10/22/16 10/22/16 14:41 14:41 14:41 WBC 16.7 H RBC 4.23 L Hgb 13.1 L Hct 39.4 MCV 93 MCH 30.9 MCHC 33.1 RDW 12.3 Plt Count 471 H Seg Neutrophils % 83.8 H Lymphocytes % 6.6 L Monocytes % 8.9 Eosinophils % 0.4 Basophils % 0.3 Absolute Neutrophils 14.0 H Absolute Lymphocytes 1.1 Absolute Monocytes 1.5 H Absolute Eosinophils 0.1 Absolute Basophils 0.1 Sodium 130.1 L Potassium 4.6 Chloride 89 L Carbon Dioxide 27 Anion Gap 14 BUN 32 H Creatinine 1.14 Est GFR ( Amer) > 60 Est GFR (Non-Af Amer) > 60 Glucose 219 H Lactic Acid 1.7 Calcium 9.6 Total Bilirubin 1.0 AST 24 ALT 27 Alkaline Phosphatase 84 Total Protein 6.7 Albumin 3.4 L Lipase 138.0 10/22/16 10/22/16 14:41 14:41 Creatine Kinase 38 L Troponin I 0.098 NT-Pro-B Natriuret Pep 896 Impressions: Chest X-Ray 10/22/16 14:23 IMPRESSION: There is now a significant right pleural effusion. Assessment & Plan - Diagnosis (1) Hypotension Qualifiers: Hypotension type: unspecified hypotension type Qualified Code(s): I95.9 - Hypotension, unspecified Plan: Patient's blood pressures improved after boluses. We will continue IV fluids at a rate of 75. It is possible the patient could have underlying infection with early sepsis brewing. He has an elevated white count of nearly 17. Waiting for urinalysis to be completed. Blood cultures have been drawn. Patient's medications could be causing hypotension. We will hold his antihypertensives for now. We will also hold his Flomax for now as well. Given that he has underlying pleural effusion it is possible that he could have pneumonia underneath this. We will give him empiric antibiotics for now. (2) Diabetes mellitus Qualifiers: Diabetes mellitus type: type 2 Diabetes mellitus complication status: with unspecified complications Diabetes mellitus group home insulin use: without group home use Qualified Code(s): E11.8 - Type 2 diabetes mellitus with unspecified complications; Z79.4 - shelter (current) use of insulin Plan: Blood sugars are currently elevated. The patient is not on any medications to control this. He had been on metformin in the past but it caused diarrhea and so he is no longer taking this. Will start sliding scale insulin here in the hospital. Consider glyburide as an outpatient. (3) Pleural effusion Plan: Patient has pleural effusion we can certainly see if we can diurese some of this off. However, the last time he was here he had to have a thoracentesis. Currently his respiratory status is quite stable. We will follow the pleural effusion for now. Pathology from left pleural effusion showed neuroendocrine (4) History of prostate cancer Plan: Patient has a remote history of prostate cancer. He is in the process of being worked up to see if this has reoccurred. He was due to get a PET scan today but could not complete it secondary to his elevated blood sugars. Hopefully this can be rescheduled for next week. (5) Dementia Qualifiers: Dementia type: Alzheimer's disease Alzheimer's disease onset: unspecified onset Dementia behavioral disturbance: without behavioral disturbance Qualified Code(s): G30.9 - Alzheimer's disease, unspecified; F02.80 - Dementia in other diseases classified elsewhere without behavioral disturbance Plan: Stable no intervention at this point.
[2016-10-22] MEDS ORDERED: ENOXAPARIN SODIUM INJ 40 MG/0.4 ML DISP.SYRIN SUBCUT ONE (19:00)
[2016-10-22] MEDS ORDERED: LEVOFLOXACIN 750 MG/D5W RTU 750 MG/150 ML RTUPB IV ONE (19:30)
[2016-10-22] MEDS: NORMAL SALINE 1000 ML 1,000 ML IV PRN (20:56)
[2016-10-22] MEDS: INSULIN LISPRO 100 UNIT/ML 3 ML VIAL SUBCUT PRN (22:57)
[2016-10-22] MEDS ORDERED: DILTIAZEM HCL 60 MG TABLET PO SCH (23:45)
[2016-10-23] MEDS ORDERED: DILTIAZEM HCL 60 MG TABLET PO ONE (00:15)
[2016-10-23 04:50] LABS: ABSOLUTE BASOPHILS # (AUTO) 0.1 10^3/uL (0.0-0.2); ABSOLUTE EOSINOPHILS # (AUTO) 0.2 10^3/uL (0.0-0.6); ABSOLUTE LYMPHOCYTES (AUTO) 1.2 10^3/uL (0.5-4.7); ABSOLUTE MONOCYTES (AUTO) 1.7 10^3/uL (0.1-1.4); ABSOLUTE NEUT (AUTO) 10.7 10^3/uL (1.7-8.2); BASOPHILS % (AUTO) 0.4 % (0-2); EOSINOPHILS % (AUTO) 1.3 % (0-6); HEMATOCRIT 33.1 % (37.9-51.0); HEMOGLOBIN 11.3 g/dL (13.5-17.0); HGB HCT DIFFERENCE 0.8; LYMPHOCYTES % (AUTO) 8.4 % (13-45); MEAN CORPUSCULAR HEMOGLOBIN 30.7 pg (27.0-33.4); MEAN CORPUSCULAR VOLUME 90 fl (80-97); MONOCYTES % (AUTO) 12.2 % (3-13); RED BLOOD COUNT 3.66 10^6/uL (4.35-5.55); RED CELL DISTRIBUTION WIDTH 12.1 % (11.5-14.0); SEGMENTED NEUTROPHILS % (AUTO) 77.7 % (42-78); WHITE BLOOD COUNT 13.8 10^3/uL (4.0-10.5)
[2016-10-23 05:32] LABS: ANION GAP 10 (5-19); BLOOD UREA NITROGEN 26 mg/dL (7-20); CALCIUM 8.7 mg/dL (8.4-10.2); CARBON DIOXIDE 26 mmol/L (22-30); CHLORIDE 96 mmol/L (98-107); CREATININE RESULT 0.97 mg/dL (0.52-1.25); GLUCOSE 143 mg/dL (75-110); MAGNESIUM 1.7 mg/dL (1.6-2.3); POTASSIUM 4.3 mmol/L (3.6-5.0); SODIUM 132.3 mmol/L (137-145)
[2016-10-23] MEDS: DILTIAZEM HCL 60 MG TABLET PO SCH ×3 (06:31→21:03)
[2016-10-23] MEDS: ENOXAPARIN SODIUM INJ 40 MG/0.4 ML DISP.SYRIN SUBCUT SCH (08:24)
[2016-10-23] MEDS: ASPIRIN 81 MG TABLET, CHEWABLE PO SCH (09:43)
[2016-10-23] MEDS: MAGNESIUM OXIDE 400 MG TABLET PO SCH (09:43)
[2016-10-23] MEDS: MEGESTROL ACETATE SUSP 400 MG/10 ML UDCUP PO SCH (09:43)
[2016-10-23] MEDS ORDERED: MEGESTROL ACETATE 400 MG PO SCH (10:00)
[2016-10-23] MEDS: INSULIN LISPRO 100 UNIT/ML 3 ML VIAL SUBCUT PRN ×2 (12:36→18:29)
--- NOTE | 2016-10-23 13:10 | PDOC PROGRESS REPORT ---
Subjective Progress Note for:: 10/23/16 Subjective:: There is a follow-up visit for hypotension and hyperglycemia. He states that he rested well last night he has no complaints today. He is accompanied by his eldest daughter and grandson today. He denies any chest pain or shortness of breath. Physical Exam Vital Signs: Temp Pulse Resp BP Pulse Ox 98.5 F 97 18 107/57 L 96 10/23/16 11:31 10/23/16 11:31 10/23/16 11:31 10/23/16 11:31 10/23/16 11:31 Intake & Output 10/22/16 10/23/16 10/24/16 06:59 06:59 06:59 Intake Total 1275 350 Output Total 375 150 Balance 900 200 Weight 71.4 kg Physical exam: Gen.: This a well-developed undernourished thin elderly white male resting in bed currently in no acute distress Heart: Regular rate and rhythm. Detect any murmurs rubs or gallops. Lungs: Diminished at the bases bilaterally right greater than left with equal rise and fall of the chest. Abdomen: Flat soft, nontender nondistended. Normoactive bowel sounds. Extremities: Small caliber. Pulse 1+ bilaterally in the lower extremities. No clubbing cyanosis or edema. Neuro: He is awake and alert. He is cracking jokes again. He is able to rightly identify his relatives. Cranial nerves II through XII are grossly intact. Results Laboratory Results: 10/23/16 04:16 10/23/16 04:16 10/23/16 10/23/16 04:16 04:16 WBC 13.8 H RBC 3.66 L Hgb 11.3 L Hct 33.1 L MCV 90 MCH 30.7 MCHC 34.0 RDW 12.1 Plt Count 335 Seg Neutrophils % 77.7 Lymphocytes % 8.4 L Monocytes % 12.2 Eosinophils % 1.3 Basophils % 0.4 Absolute Neutrophils 10.7 H Absolute Lymphocytes 1.2 Absolute Monocytes 1.7 H Absolute Eosinophils 0.2 Absolute Basophils 0.1 Sodium 132.3 L Potassium 4.3 Chloride 96 L Carbon Dioxide 26 Anion Gap 10 BUN 26 H Creatinine 0.97 Est GFR ( Amer) > 60 Est GFR (Non-Af Amer) > 60 Glucose 143 H Calcium 8.7 Magnesium 1.7 Impressions: Chest X-Ray 10/22/16 14:23 IMPRESSION: There is now a significant right pleural effusion. Assessment & Plan - Diagnosis (1) Hypotension Qualifiers: Hypotension type: unspecified hypotension type Qualified Code(s): I95.9 - Hypotension, unspecified Plan: Patient's blood pressures improved after boluses. We will continue IV fluids at a rate of 75. It is possible the patient could have underlying infection with early sepsis brewing. He has an elevated white count of nearly 17. It is now down to 13 this morning. Urinalysis is negative.. Blood cultures have been drawn and are pending. Patient's medications could be causing hypotension. His antihypertensives remain on hold. Continue to hold his Flomax. Given that he has underlying pleural effusion it is possible that he could have pneumonia underneath this. Continue empiric antibiotics. (2) Diabetes mellitus Qualifiers: Diabetes mellitus type: type 2 Diabetes mellitus complication status: with unspecified complications Diabetes mellitus half-way insulin use: without half-way use Qualified Code(s): E11.8 - Type 2 diabetes mellitus with unspecified complications; Z79.4 - [facility] (current) use of insulin Plan: Blood sugars are currently elevated. The patient is not on any medications to control this. He had been on metformin in the past but it caused diarrhea and so he is no longer taking this. Will start sliding scale insulin here in the hospital. We'll start a 1.25 mg a day. (3) Pleural effusion Plan: Patient has pleural effusion we can certainly see if we can diurese some of this off. However, the last time he was here he had to have a thoracentesis. Currently his respiratory status is quite stable. For now I'm not recommending thoracentesis. Patient has no problems breathing. Believe risks outweigh benefits currently. Clinically the patient is better and his white count was already going down. Continue antibiotics. (4) History of prostate cancer Plan: Patient has a remote history of prostate cancer. He is in the process of being worked up to see if this has reoccurred. He was due to get a PET scan today but could not complete it secondary to his elevated blood sugars. Hopefully this can be rescheduled for next week. (5) Dementia Qualifiers: Dementia type: Alzheimer's disease Alzheimer's disease onset: unspecified onset Dementia behavioral disturbance: without behavioral disturbance Qualified Code(s): G30.9 - Alzheimer's disease, unspecified; F02.80 - Dementia in other diseases classified elsewhere without behavioral disturbance Plan: Stable no intervention at this point. - Time Time Spent with patient: 25-34 minutes Anticipated discharge: Home - Inpatient Certification Medical Necessity: Significant Comorbidiites Make Outpatient Treatment Too Risky , Need Close Monitoring Due to Risk of Patient Decompensation
--- NOTE | 2016-10-23 13:14 | EKG REPORT ---
SEVERITY:- ABNORMAL ECG - SINUS RHYTHM RIGHT BUNDLE BRANCH BLOCK : Confirmed by: Jenniffer Adams 23-Oct-2016 13:14:20
[2016-10-23] MEDS ORDERED: GLYBURIDE 2.5 MG TABLET PO ONE (14:00)
[2016-10-23] MEDS ORDERED: GLYBURIDE 5 MG TABLET PO SCH (14:00)
[2016-10-23] MEDS: LEVOFLOXACIN 750 MG/D5W RTU 750 MG/150 ML RTUPB IV SCH (17:07)
[2016-10-24] MEDS: DILTIAZEM HCL 60 MG TABLET PO SCH ×3 (05:44→20:58)
[2016-10-24 05:59] LABS: ABSOLUTE BASOPHILS # (AUTO) 0.1 10^3/uL (0.0-0.2); ABSOLUTE EOSINOPHILS # (AUTO) 0.1 10^3/uL (0.0-0.6); ABSOLUTE LYMPHOCYTES (AUTO) 1.1 10^3/uL (0.5-4.7); ABSOLUTE MONOCYTES (AUTO) 1.6 10^3/uL (0.1-1.4); ABSOLUTE NEUT (AUTO) 11.5 10^3/uL (1.7-8.2); BASOPHILS % (AUTO) 0.6 % (0-2); EOSINOPHILS % (AUTO) 0.7 % (0-6); HEMATOCRIT 34.8 % (37.9-51.0); HEMOGLOBIN 11.7 g/dL (13.5-17.0); HGB HCT DIFFERENCE 0.3; LYMPHOCYTES % (AUTO) 7.4 % (13-45); MEAN CORPUSCULAR HEMOGLOBIN 31.3 pg (27.0-33.4); MEAN CORPUSCULAR HGB CONC 33.7 g/dL (32.0-36.0); MEAN CORPUSCULAR VOLUME 93 fl (80-97); MONOCYTES % (AUTO) 11.4 % (3-13); RED BLOOD COUNT 3.75 10^6/uL (4.35-5.55); RED CELL DISTRIBUTION WIDTH 12.1 % (11.5-14.0); SEGMENTED NEUTROPHILS % (AUTO) 79.9 % (42-78); WHITE BLOOD COUNT 14.4 10^3/uL (4.0-10.5)
[2016-10-24 06:23] LABS: ANION GAP 10 (5-19); BLOOD UREA NITROGEN 19 mg/dL (7-20); CALCIUM 9.1 mg/dL (8.4-10.2); CARBON DIOXIDE 23 mmol/L (22-30); CHLORIDE 99 mmol/L (98-107); CREATININE RESULT 0.98 mg/dL (0.52-1.25); GLUCOSE 86 mg/dL (75-110); MAGNESIUM 1.7 mg/dL (1.6-2.3); POTASSIUM 4.3 mmol/L (3.6-5.0); SODIUM 132.4 mmol/L (137-145)
[2016-10-24] MEDS: GLYBURIDE 2.5 MG TABLET PO SCH (07:58)
[2016-10-24] MEDS: ENOXAPARIN SODIUM INJ 40 MG/0.4 ML DISP.SYRIN SUBCUT SCH (07:58)
[2016-10-24] MEDS: MAGNESIUM OXIDE 400 MG TABLET PO SCH (11:26)
[2016-10-24] MEDS: ASPIRIN 81 MG TABLET, CHEWABLE PO SCH (11:26)
[2016-10-24] MEDS: MEGESTROL ACETATE SUSP 400 MG/10 ML UDCUP PO SCH (11:26)
--- NOTE | 2016-10-24 14:17 | PDOC PROGRESS REPORT ---
Physical Exam Vital Signs: Temp Pulse Resp BP Pulse Ox 98.5 F 98 20 132/66 H 95 10/24/16 08:27 10/24/16 08:27 10/24/16 08:27 10/24/16 08:27 10/24/16 08:27 Intake & Output 10/23/16 10/24/16 10/25/16 06:59 06:59 06:59 Intake Total 1275 2146 Output Total 375 1100 Balance 900 1046 Weight 71.4 kg 70.8 kg Physical exam: Gen.: This a well-developed undernourished thin elderly white male resting in bed currently in no acute distress Heart: Regular rate and rhythm. Detect any murmurs rubs or gallops. Lungs: Diminished at the bases bilaterally right greater than left with equal rise and fall of the chest. Abdomen: Flat soft, nontender nondistended. Normoactive bowel sounds. Extremities: Small caliber. Pulse 1+ bilaterally in the lower extremities. No clubbing cyanosis or edema. Neuro: He is awake and alert. He is cracking jokes again. He is able to rightly identify his relatives. Cranial nerves II through XII are grossly intact. Results Laboratory Results: 10/24/16 05:32 10/24/16 05:32 10/24/16 10/24/16 05:32 05:32 WBC 14.4 H RBC 3.75 L Hgb 11.7 L Hct 34.8 L MCV 93 MCH 31.3 MCHC 33.7 RDW 12.1 Plt Count 384 Seg Neutrophils % 79.9 H Lymphocytes % 7.4 L Monocytes % 11.4 Eosinophils % 0.7 Basophils % 0.6 Absolute Neutrophils 11.5 H Absolute Lymphocytes 1.1 Absolute Monocytes 1.6 H Absolute Eosinophils 0.1 Absolute Basophils 0.1 Sodium 132.4 L Potassium 4.3 Chloride 99 Carbon Dioxide 23 Anion Gap 10 BUN 19 Creatinine 0.98 Est GFR ( Amer) > 60 Est GFR (Non-Af Amer) > 60 Glucose 86 Calcium 9.1 Magnesium 1.7 Impressions: Chest X-Ray 10/22/16 14:23 IMPRESSION: There is now a significant right pleural effusion. Assessment & Plan - Diagnosis (1) Hypotension Qualifiers: Hypotension type: unspecified hypotension type Qualified Code(s): I95.9 - Hypotension, unspecified (2) Diabetes mellitus Qualifiers: Diabetes mellitus type: type 2 Diabetes mellitus complication status: with unspecified complications Diabetes mellitus terminal gauger insulin use: without terminal gauger use Qualified Code(s): E11.8 - Type 2 diabetes mellitus with unspecified complications; Z79.4 - supervisor intermediates (current) use of insulin (5) Dementia Qualifiers: Dementia type: Alzheimer's disease Alzheimer's disease onset: unspecified onset Dementia behavioral disturbance: without behavioral disturbance Qualified Code(s): G30.9 - Alzheimer's disease, unspecified; F02.80 - Dementia in other diseases classified elsewhere without behavioral disturbance
--- NOTE | 2016-10-24 14:23 | PDOC PROGRESS REPORT ---
Subjective Progress Note for:: 10/24/16 Subjective:: There is a follow-up visit for hypotension and hyperglycemia. He has no complaints except wanting to go home. He is accompanied by one of his daughters who is his medical power of attorney lawyer. Had a lengthy discussion about his current disease, prognosis and general plan. Physical Exam Vital Signs: Temp Pulse Resp BP Pulse Ox 97.8 F 107 H 22 H 146/77 H 99 10/24/16 12:51 10/24/16 12:51 10/24/16 12:51 10/24/16 12:51 10/24/16 12:51 Intake & Output 10/23/16 10/24/16 10/25/16 06:59 06:59 06:59 Intake Total 1275 2146 120 Output Total 375 1100 175 Balance 900 1046 -55 Weight 71.4 kg 70.8 kg Physical exam: Gen.: This a well-developed undernourished thin elderly white male resting in bed currently in no acute distress Heart: Regular rate and rhythm. 1 Out of 6 systolic ejection murmur. No Rubs or gallops. Lungs: Diminished at the bases bilaterally right greater than left with equal rise and fall of the chest. Abdomen: Flat soft, nontender nondistended. Normoactive bowel sounds. Extremities: Small caliber. Pulse 1+ bilaterally in the lower extremities. No clubbing cyanosis or edema. Neuro: He is awake and alert. He is able to rightly identify his relatives again.. Cranial nerves II through XII are grossly intact. Results Laboratory Results: 10/24/16 05:32 10/24/16 05:32 10/24/16 10/24/16 05:32 05:32 WBC 14.4 H RBC 3.75 L Hgb 11.7 L Hct 34.8 L MCV 93 MCH 31.3 MCHC 33.7 RDW 12.1 Plt Count 384 Seg Neutrophils % 79.9 H Lymphocytes % 7.4 L Monocytes % 11.4 Eosinophils % 0.7 Basophils % 0.6 Absolute Neutrophils 11.5 H Absolute Lymphocytes 1.1 Absolute Monocytes 1.6 H Absolute Eosinophils 0.1 Absolute Basophils 0.1 Sodium 132.4 L Potassium 4.3 Chloride 99 Carbon Dioxide 23 Anion Gap 10 BUN 19 Creatinine 0.98 Est GFR ( Amer) > 60 Est GFR (Non-Af Amer) > 60 Glucose 86 Calcium 9.1 Magnesium 1.7 Impressions: Chest X-Ray 10/22/16 14:23 IMPRESSION: There is now a significant right pleural effusion. Assessment & Plan - Diagnosis (1) Hypotension Qualifiers: Hypotension type: unspecified hypotension type Qualified Code(s): I95.9 - Hypotension, unspecified Plan: Hypotension resolved after boluses. We will continue IV fluids at a rate of 75. It is possible the patient could have underlying infection with early sepsis brewing. He has an elevated white count of nearly 17. It is now down to 14 this morning. Urinalysis is negative.. Blood cultures have been drawn and are negative to date. Patient's medications could be causing hypotension. His antihypertensives remain on hold. Continue to hold his Flomax. Given that he has underlying pleural effusion it is possible that he could have pneumonia underneath this. Continue empiric antibiotics. (2) Diabetes mellitus Qualifiers: Diabetes mellitus type: type 2 Diabetes mellitus complication status: with unspecified complications Diabetes mellitus correction insulin use: without 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 termite use Qualified Code(s): E11.8 - Type 2 diabetes mellitus with unspecified complications; Z79.4 - [facility] (current) use of insulin Plan: Blood sugars are currently elevated. The patient is not on any medications to control this. He had been on metformin in the past but it caused diarrhea and so he is no longer taking this. Will start sliding scale insulin here in the hospital. Continue glyburide at 1.25 mg a day. (3) Pleural effusion Plan: Patient has pleural effusion we can certainly see if we can diurese some of this off. However, the last time he was here he had to have a thoracentesis. Currently his respiratory status is quite stable. For now I'm not recommending thoracentesis. Patient has no problems breathing. Believe risks outweigh benefits currently. Clinically the patient is better and his white count was already going down. Continue antibiotics. (4) History of prostate cancer Plan: Patient has a remote history of prostate cancer. He is in the process of being worked up to see if this has reoccurred. He was due to get a PET scan Tuesday but could not complete it secondary to his elevated blood sugars. Hopefully this can be rescheduled for next week. (5) Dementia Qualifiers: Dementia type: Alzheimer's disease Alzheimer's disease onset: unspecified onset Dementia behavioral disturbance: without behavioral disturbance Qualified Code(s): G30.9 - Alzheimer's disease, unspecified; F02.80 - Dementia in other diseases classified elsewhere without behavioral disturbance Plan: Stable no intervention at this point. The patient stopped his Aricept about a week or 2 ago. And has been doing well
[2016-10-24] MEDS: LEVOFLOXACIN 750 MG/D5W RTU 750 MG/150 ML RTUPB IV SCH (17:15)
[2016-10-24] MEDS ORDERED: DIGOXIN INJ 0.5 MG/2 ML AMPULE IV ONE (21:30)
[2016-10-24 21:59] LABS: ARTERIAL BLOOD BASE EXCESS -0.3 mmol/L; ARTERIAL BLOOD O2 SATURATION 97.7 % (94-98)
[2016-10-24 22:30] LABS: ANION GAP 10 (5-19); BLOOD UREA NITROGEN 13 mg/dL (7-20); CALCIUM 8.8 mg/dL (8.4-10.2); CARBON DIOXIDE 21 mmol/L (22-30); CHLORIDE 101 mmol/L (98-107); CREATININE RESULT 0.79 mg/dL (0.52-1.25); GLUCOSE 100 mg/dL (75-110); POTASSIUM 4.5 mmol/L (3.6-5.0); SODIUM 132.2 mmol/L (137-145)
[2016-10-24] MEDS ORDERED: LIDOCAINE 1% INJ-PF (10 MG/ML) 30 ML SDV ONE (23:08)
[2016-10-25 00:08] LABS: PROTHROMBIN TIME 14.9 SEC (11.4-15.4)
[2016-10-25] MEDS ORDERED: MORPHINE SULFATE 10 MG/ML INJ ONE (00:50)
[2016-10-25] MEDS ORDERED: MORPHINE SULFATE 10 MG/ML INJ IV ONE (01:00)
[2016-10-25] MEDS ORDERED: LACTULOSE SYRUP 20 GM/30 ML UDCUP PO ONE (03:37)
--- NOTE | 2016-10-25 03:48 | OPERATIVE REPORT E ---
Operative Report NAME: ARIANA LOVE : 1945 AGE: 71Y DATE OF SURGERY: 10/25/2016 ROOM: 327 PREOPERATIVE DIAGNOSIS: Recurrent large right pleural effusion. POSTOPERATIVE DIAGNOSIS: Recurrent large right pleural effusion. OPERATION: Placement of size 32-Australian chest tube on the right fifth intercostal space, anterior axillary line under local anesthesia. SURGEON: BURAK MÉNDEZ M.D. INDICATION: This is a 71-year-old male with history of carcinoma of the lung and had thoracentesis done last week, only for the effusion to come back. He also has some shortness of breath. A chest tube is being inserted to restore the lung and hopefully can relieve some of his breathing discomfort. PROCEDURE: The patient was placed in the semi-erect position and the right chest prepped and draped in the usual sterile fashion. Local anesthesia infiltrated over the right fifth intercostal space below the nipple. An incision was made 1.5 cm long. Blunt dissection of the muscle was done and further local anesthesia infiltrated along the area and into the pleura. Next, the pleura was entered and a gush of bloody fluid came out. A 32 chest tube was then inserted and anchored to the skin with 2 sutures of 3-0 Prolene on each side. Prior to this placement, an area on the fifth intercostal space more medial was made under local anesthesia; however, the chest tube was unable to be threaded through. Because of this, more lateral incision made and this time about 2 liters of bloody fluid was retrieved. The chest tube was connected to the Pleur-Evac and all connections were reinforced with silk tape. Sterile dressing placed over the chest tube with sterile layer of Xeroform gauze placed about the skin. The patient tolerated the procedure well. A chest x-ray will be obtained for placement. DICTATING PHYSICIAN: BURAK MÉNDEZ M.D. [id number] PHY#: [id number] ID: [id number] JOB#: [id number] ACCT: [id number] cc:BURAK MÉNDEZ M.D. >
[2016-10-25] MEDS: DILTIAZEM HCL 60 MG TABLET PO SCH ×3 (05:52→22:02)
[2016-10-25 06:10] LABS: HEMATOCRIT 36.2 % (37.9-51.0); HEMOGLOBIN 11.9 g/dL (13.5-17.0); HGB HCT DIFFERENCE -0.5; MEAN CORPUSCULAR HEMOGLOBIN 30.8 pg (27.0-33.4); MEAN CORPUSCULAR HGB CONC 32.9 g/dL (32.0-36.0); MEAN CORPUSCULAR VOLUME 94 fl (80-97); RED BLOOD COUNT 3.86 10^6/uL (4.35-5.55); RED CELL DISTRIBUTION WIDTH 12.2 % (11.5-14.0)
[2016-10-25 06:21] LABS: ANION GAP 11 (5-19); BLOOD UREA NITROGEN 13 mg/dL (7-20); CARBON DIOXIDE 20 mmol/L (22-30); CHLORIDE 102 mmol/L (98-107); CREATININE RESULT 0.84 mg/dL (0.52-1.25); GLUCOSE 138 mg/dL (75-110); MAGNESIUM 1.6 mg/dL (1.6-2.3); POTASSIUM 4.9 mmol/L (3.6-5.0); SODIUM 133.2 mmol/L (137-145)
[2016-10-25 06:35] LABS: BASOPHILS % (MANUAL) 0 % (0-2); EOSINOPHILS % (MANUAL) 1 % (0-6); LYMPHOCYTES % (MANUAL) 6 % (13-45); RBC MORPHOLOGY COMMENT NORMO-CYTIC/CHROMIC; TOTAL CELLS COUNTED 100
[2016-10-25] MEDS: NORMAL SALINE 1000 ML 1,000 ML IV PRN (07:45)
[2016-10-25] MEDS: GLYBURIDE 2.5 MG TABLET PO SCH (07:50)
[2016-10-25] MEDS ORDERED: ACETAMINOPHEN 325 MG TABLET PO PRN (12:09)
[2016-10-25] MEDS ORDERED: ACETAMINOPHEN 325 MG TABLET ONE (12:12)
[2016-10-25] MEDS: ENOXAPARIN SODIUM INJ 40 MG/0.4 ML DISP.SYRIN SUBCUT SCH (12:14)
[2016-10-25] MEDS: MAGNESIUM OXIDE 400 MG TABLET PO SCH (12:15)
[2016-10-25] MEDS: ASPIRIN 81 MG TABLET, CHEWABLE PO SCH (12:15)
[2016-10-25] MEDS: MEGESTROL ACETATE SUSP 400 MG/10 ML UDCUP PO SCH (13:59)
--- NOTE | 2016-10-25 14:48 | PDOC PROGRESS REPORT ---
Subjective Progress Note for:: 10/25/16 Subjective:: There is a follow-up visit for hypotension and hyperglycemia. Patient has a large right pleural effusion. Unfortunately he had an episode of respiratory failure overnight and had to have an emergent chest tube placed. I had hoped that we will be able to manage him conservatively. At the bedside he states that he feels better. Physical Exam Vital Signs: Temp Pulse Resp BP Pulse Ox 98.2 F 102 H 18 152/74 H 97 10/25/16 12:39 10/25/16 12:39 10/25/16 12:39 10/25/16 12:39 10/25/16 12:39 Intake & Output 10/24/16 10/25/16 10/26/16 06:59 06:59 06:59 Intake Total 2146 2718 120 Output Total 1100 2125 220 Balance 1046 593 -100 Weight 70.8 kg 69.2 kg Physical exam: Gen.: This a well-developed undernourished thin elderly white male resting in bed currently in no acute distress Heart: Regular rate and rhythm. 1 Out of 6 systolic ejection murmur. No Rubs or gallops. Lungs: Right Chest tube in place with serosanguinous drainage. Abdomen: Flat soft, nontender nondistended. Normoactive bowel sounds. Extremities: Small caliber. Pulse 1+ bilaterally in the lower extremities. No clubbing cyanosis or edema. Neuro: He is sleepy today. He is able to be awakened but drifts off quickly. Results Laboratory Results: 10/25/16 05:50 10/25/16 05:50 10/24/16 10/24/16 10/25/16 21:40 21:52 05:50 WBC 19.0 H RBC 3.86 L Hgb 11.9 L Hct 36.2 L MCV 94 MCH 30.8 MCHC 32.9 RDW 12.2 Plt Count 395 Seg Neutrophils % Not Reportable Lymphocytes % Not Reportable Monocytes % Not Reportable Eosinophils % Not Reportable Basophils % Not Reportable Absolute Neutrophils Not Reportable Absolute Lymphocytes Not Reportable Absolute Monocytes Not Reportable Absolute Eosinophils Not Reportable Absolute Basophils Not Reportable Carbonic Acid 0.88 L HCO3/H2CO3 Ratio 25:1 ABG pH 7.50 H ABG pCO2 29.3 L ABG pO2 91.7 ABG HCO3 22.1 ABG O2 Saturation 97.7 ABG Base Excess -0.3 FiO2 1L Sodium 132.2 L Potassium 4.5 Chloride 101 Carbon Dioxide 21 L Anion Gap 10 BUN 13 Creatinine 0.79 Est GFR ( Amer) > 60 Est GFR (Non-Af Amer) > 60 Glucose 100 Calcium 8.8 Magnesium 10/25/16 05:50 WBC RBC Hgb Hct MCV MCH MCHC RDW Plt Count Seg Neutrophils % Lymphocytes % Monocytes % Eosinophils % Basophils % Absolute Neutrophils Absolute Lymphocytes Absolute Monocytes Absolute Eosinophils Absolute Basophils Carbonic Acid HCO3/H2CO3 Ratio ABG pH ABG pCO2 ABG pO2 ABG HCO3 ABG O2 Saturation ABG Base Excess FiO2 Sodium 133.2 L Potassium 4.9 Chloride 102 Carbon Dioxide 20 L Anion Gap 11 BUN 13 Creatinine 0.84 Est GFR ( Amer) > 60 Est GFR (Non-Af Amer) > 60 Glucose 138 H Calcium 9.0 Magnesium 1.6 Impressions: Chest X-Ray 10/25/16 08:30 IMPRESSION: 1. There is a small right pleural effusion that is not changed since the earlier study. 2. A limited right lower lobe pneumonia cannot be ruled out. Assessment & Plan - Diagnosis (1) Sepsis Plan: Sepsis with hypotension. The patient is status post a bolus. Likely with underlying pneumonia under the pleural fluid. Today's chest x-ray shows limited evidence of this. White blood cell count was elevated today it was up to 19. I suspect this is because he had a chest tube placed overnight as opposed to worsening pneumonia. Continue empiric coverage. (2) Hypotension Qualifiers: Hypotension type: unspecified hypotension type Qualified Code(s): I95.9 - Hypotension, unspecified Plan: Hypotension resolved after boluses. We will continue IV fluids at a rate of 75. It is possible the patient could have underlying infection with early sepsis brewing. He has an elevated white count of nearly 17. It is now down to 14 this morning. Urinalysis is negative.. Blood cultures have been drawn and are negative to date. Patient's medications could be causing hypotension. His antihypertensives remain on hold. Continue to hold his Flomax. Given that he has underlying pleural effusion it is possible that he could have pneumonia underneath this. Continue empiric antibiotics. (3) Pleural effusion Plan: This is a malignant pleural effusion. The patient's respiratory status had been quite stable. We were hopeful to get him home without any intervention and to continue conservative management. Unfortunately he had respiratory failure overnight and required emergent placement of a chest tube. It doesn't seem as if the pleural fluid was sent for Gram stain and culture. Therefore going to order them now. Hopefully the lab still has the fluid. If not, I suppose we could always take it from the pleura vacs at the bedside. Long-term , we know that this girl fluid is a direct result of underlying cancer. 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 He is likely to reaccumulate this again. I question as to whether or not he should have a pigtail catheter placed and sent home with it to be drained periodically. Currently his white blood cell count has gone back up to 19. I suspect this is a direct result from having had a chest tube place. Patient's oncologist is Dr. Long. We will place a consult for their aware of what's going on patient. (4) Diabetes mellitus Qualifiers: Diabetes mellitus type: type 2 Diabetes mellitus complication status: with unspecified complications Diabetes mellitus fdc insulin use: without fdc use Qualified Code(s): E11.8 - Type 2 diabetes mellitus with unspecified complications; Z79.4 - [facility] (current) use of insulin Plan: Blood sugars are currently elevated. The patient is not on any medications to control this. He had been on metformin in the past but it caused diarrhea and so he is no longer taking this. Will start sliding scale insulin here in the hospital. Continue glyburide at 1.25 mg a day. (5) History of prostate cancer Plan: Patient has a remote history of prostate cancer. He is in the process of being worked up to see if this has reoccurred. He was due to get a PET scan Tuesday but could not complete it secondary to his elevated blood sugars. Hopefully this can be rescheduled for next week. (6) Dementia Qualifiers: Dementia type: Alzheimer's disease Alzheimer's disease onset: unspecified onset Dementia behavioral disturbance: without behavioral disturbance Qualified Code(s): G30.9 - Alzheimer's disease, unspecified; F02.80 - Dementia in other diseases classified elsewhere without behavioral disturbance Plan: Stable no intervention at this point. The patient stopped his Aricept about a week or 2 ago. And has been doing well (7) Pneumonia Qualifiers: Pneumonia type: due to unspecified organism Laterality: bilateral Lung location: lower lobe of lung Qualified Code(s): J18.9 - Pneumonia, unspecified organism Plan: Management as per #1. - Time Time Spent with patient: 15-24 minutes Anticipated discharge: Home - Inpatient Certification Medical Necessity: Significant Comorbidiites Make Outpatient Treatment Too Risky , Need Close Monitoring Due to Risk of Patient Decompensation
--- NOTE | 2016-10-25 15:24 | PDOC PROGRESS REPORT ---
Subjective Progress Note for:: 10/25/16 Subjective:: No complaints, chest tube draining bloody fluid. Physical Exam Vital Signs: Temp Pulse Resp BP Pulse Ox 98.2 F 102 H 18 152/74 H 97 10/25/16 12:39 10/25/16 12:39 10/25/16 12:39 10/25/16 12:39 10/25/16 12:39 Intake & Output 10/24/16 10/25/16 10/26/16 06:59 06:59 06:59 Intake Total 2146 2718 120 Output Total 1100 2125 220 Balance 1046 593 -100 Weight 70.8 kg 69.2 kg General appearance: PRESENT: no acute distress Respiratory exam: PRESENT: other - Diminished breath sounds right base. Right chest tube without air leak; no subcutaneous air; oral fluid bloody, 500 since this a.m. Results Laboratory Results: 10/25/16 05:50 10/25/16 05:50 10/24/16 10/24/16 10/25/16 21:40 21:52 05:50 WBC 19.0 H RBC 3.86 L Hgb 11.9 L Hct 36.2 L MCV 94 MCH 30.8 MCHC 32.9 RDW 12.2 Plt Count 395 Seg Neutrophils % Not Reportable Lymphocytes % Not Reportable Monocytes % Not Reportable Eosinophils % Not Reportable Basophils % Not Reportable Absolute Neutrophils Not Reportable Absolute Lymphocytes Not Reportable Absolute Monocytes Not Reportable Absolute Eosinophils Not Reportable Absolute Basophils Not Reportable Carbonic Acid 0.88 L HCO3/H2CO3 Ratio 25:1 ABG pH 7.50 H ABG pCO2 29.3 L ABG pO2 91.7 ABG HCO3 22.1 ABG O2 Saturation 97.7 ABG Base Excess -0.3 FiO2 1L Sodium 132.2 L Potassium 4.5 Chloride 101 Carbon Dioxide 21 L Anion Gap 10 BUN 13 Creatinine 0.79 Est GFR ( Amer) > 60 Est GFR (Non-Af Amer) > 60 Glucose 100 Calcium 8.8 Magnesium 10/25/16 05:50 WBC RBC Hgb Hct MCV MCH MCHC RDW Plt Count Seg Neutrophils % Lymphocytes % Monocytes % Eosinophils % Basophils % Absolute Neutrophils Absolute Lymphocytes Absolute Monocytes Absolute Eosinophils Absolute Basophils Carbonic Acid HCO3/H2CO3 Ratio ABG pH ABG pCO2 ABG pO2 ABG HCO3 ABG O2 Saturation ABG Base Excess FiO2 Sodium 133.2 L Potassium 4.9 Chloride 102 Carbon Dioxide 20 L Anion Gap 11 BUN 13 Creatinine 0.84 Est GFR ( Amer) > 60 Est GFR (Non-Af Amer) > 60 Glucose 138 H Calcium 9.0 Magnesium 1.6 Impressions: Chest X-Ray 10/25/16 08:30 IMPRESSION: 1. There is a small right pleural effusion that is not changed since the earlier study. 2. A limited right lower lobe pneumonia cannot be ruled out. Status: Image reviewed by me - This morning's chest x-ray shows chest tube in good position, atelectasis of the right lower lobe, some residual fluid right pleural space. No Pneumothorax. No subcutaneous air. Assessment & Plan - Diagnosis (1) Pleural effusion Is this a current diagnosis for this admission?: YesPlan: 1. Right chest tube effectively draining right pleural space. Based on cytologic analysis, the effusion appears malignant. We will have recurrent fluid re-analyzed by cytology. 2. Patient is experiencing atelectasis of the right lower lobe secondary to hypoventilation, and extrinsic compression by the pleural effusion. He needs more aggressive pulmonary toilet and this has been discussed with the nursing staff. We have ordered an incentive spirometer and a coughing pillow. 3. Will start daily chest tube dressing changes. 4. Management of right malignant pleural effusion may include eventual insertion of a Pleurx catheter or pleurodesis month: We will await oncologic input
[2016-10-25 16:21] LABS: FLUID TYPE PLEURAL
[2016-10-25 16:25] LABS: FLUID APPEARANCE CLOUDY
[2016-10-25 16:26] LABS: FLUID RBC DILUENT USED SALINE; FLUID RBC DILUTION FACTOR 20; FLUID RBC SIDE 1 386; FLUID RBC SIDE 2 406
[2016-10-25 16:27] LABS: TOTAL RBC SQUARES COUNTED FLD 50
[2016-10-25] MEDS: DOCUSATE SODIUM 100 MG CAPSULE PO SCH (17:54)
[2016-10-25] MEDS: LEVOFLOXACIN 750 MG TABLET PO SCH (17:55)
[2016-10-26 05:35] LABS: ABSOLUTE BASOPHILS # (AUTO) 0.1 10^3/uL (0.0-0.2); ABSOLUTE LYMPHOCYTES (AUTO) 0.8 10^3/uL (0.5-4.7); ABSOLUTE MONOCYTES (AUTO) 1.7 10^3/uL (0.1-1.4); ABSOLUTE NEUT (AUTO) 12.6 10^3/uL (1.7-8.2); BASOPHILS % (AUTO) 0.4 % (0-2); EOSINOPHILS % (AUTO) 0.3 % (0-6); HEMATOCRIT 35.5 % (37.9-51.0); HEMOGLOBIN 12.1 g/dL (13.5-17.0); HGB HCT DIFFERENCE 0.8; LYMPHOCYTES % (AUTO) 5.2 % (13-45); MEAN CORPUSCULAR HEMOGLOBIN 31.1 pg (27.0-33.4); MEAN CORPUSCULAR VOLUME 91 fl (80-97); MONOCYTES % (AUTO) 11.3 % (3-13); RED BLOOD COUNT 3.89 10^6/uL (4.35-5.55); RED CELL DISTRIBUTION WIDTH 12.2 % (11.5-14.0); SEGMENTED NEUTROPHILS % (AUTO) 82.8 % (42-78); WHITE BLOOD COUNT 15.2 10^3/uL (4.0-10.5)
[2016-10-26 05:57] LABS: ANION GAP 9 (5-19); BLOOD UREA NITROGEN 15 mg/dL (7-20); CALCIUM 9.1 mg/dL (8.4-10.2); CARBON DIOXIDE 21 mmol/L (22-30); CHLORIDE 102 mmol/L (98-107); CREATININE RESULT 0.88 mg/dL (0.52-1.25); GLUCOSE 85 mg/dL (75-110); MAGNESIUM 1.6 mg/dL (1.6-2.3); POTASSIUM 5.3 mmol/L (3.6-5.0); SODIUM 131.9 mmol/L (137-145)
[2016-10-26] MEDS: DILTIAZEM HCL 60 MG TABLET PO SCH ×3 (06:04→22:48)
[2016-10-26] MEDS: ENOXAPARIN SODIUM INJ 40 MG/0.4 ML DISP.SYRIN SUBCUT SCH (08:05)
[2016-10-26] MEDS: GLYBURIDE 2.5 MG TABLET PO SCH (08:06)
[2016-10-26] MEDS: ASPIRIN 81 MG TABLET, CHEWABLE PO SCH (09:58)
[2016-10-26] MEDS: DOCUSATE SODIUM 100 MG CAPSULE PO SCH ×2 (09:58→17:31)
[2016-10-26] MEDS: MAGNESIUM OXIDE 400 MG TABLET PO SCH (09:58)
[2016-10-26] MEDS: MEGESTROL ACETATE SUSP 400 MG/10 ML UDCUP PO SCH (09:58)
[2016-10-26] MEDS ORDERED: PROCHLORPERAZINE MALEATE 10 MG TABLET PO PRN (12:46)
[2016-10-26] MEDS ORDERED: LORAZEPAM 1 MG TABLET PO PRN (12:48)
--- NOTE | 2016-10-26 13:09 | PDOC PROGRESS REPORT ---
Subjective Progress Note for:: 10/26/16 Subjective:: Reason for visit: Follow-up right pleural effusion, squamous cell carcinoma of the lung, hypotension, hyperglycemia, dementia Hospital course: See H&P for full details. The patient was admitted with hypotension and hyperglycemia and has a history of melanoma and has been found with recurrent right pleural effusion that previous thoracentesis and evaluation confirms squamous cell carcinoma of the lung as likely primary. His respiratory status decompensated requiring emergent chest tube placement that initially drained nearly 2 L of bloody fluid. I inherited his care Alivia and he is far more stable than previous. He is complaining of right-sided chest wall pain at the site of the chest tube, described as sharp, stabbing, worse with inspiration, better with rest, nonradiating, no other associated symptoms. He is in no respiratory distress. ROS: Total 10 systems reviewed with pertinent positives and negatives noted above, all remaining systems negative. Physical Exam Vital Signs: Temp Pulse Resp BP Pulse Ox 98.7 F 61 19 113/56 L 98 10/26/16 11:31 10/26/16 11:31 10/26/16 11:31 10/26/16 11:31 10/26/16 11:31 Intake & Output 10/25/16 10/26/16 10/27/16 06:59 06:59 06:59 Intake Total 2718 1948 118 Output Total 2125 370 10 Balance 593 1578 108 Weight 69.2 kg 69.3 kg EXAM GENERAL: NAD; well developed, poorly nourished; no obese; alert and oriented to person, place, time, situation HEENT: normocephalic, atraumatic; no conjunctival injection, no scleral icterus ; oral mucosa dry with red beefy tongue and thin white coating in the posterior oropharynx RESPIRATORY: no accessory muscle use, no increased WOB; no wheezes, or rhonchi ; bilateral inspiratory crackles, diminished breath sounds right base. Chest tube in place and continues to drain scant amount of bloody fluid CARDIO: no JVD; RRR; soft systolic murmur; no tachycardia GI: soft; nondistended; normal bowel sounds;no rebound, rigidity, guarding VASCULAR: Pale; 2+ radial, DP pulse; normal capillary refill EXTREMITIES: no calf tender; no palpable cords in calf; no clubbing, cyanosis , pedal edema PSYCH: normal affect, normal mood SKIN: warm; moist; no petechiae; no telengectasias; no jaundice Results Laboratory Results: 10/26/16 05:10 10/26/16 05:10 10/25/16 10/26/16 10/26/16 15:00 05:10 05:10 WBC 15.2 H RBC 3.89 L Hgb 12.1 L Hct 35.5 L MCV 91 MCH 31.1 MCHC 34.0 RDW 12.2 Plt Count 418 Seg Neutrophils % 82.8 H Lymphocytes % 5.2 L Monocytes % 11.3 Eosinophils % 0.3 Basophils % 0.4 Absolute Neutrophils 12.6 H Absolute Lymphocytes 0.8 Absolute Monocytes 1.7 H Absolute Eosinophils 0.0 Absolute Basophils 0.1 Sodium 131.9 L Potassium 5.3 H Chloride 102 Carbon Dioxide 21 L Anion Gap 9 BUN 15 Creatinine 0.88 Est GFR ( Amer) > 60 Est GFR (Non-Af Amer) > 60 Glucose 85 Calcium 9.1 Magnesium 1.6 Fluid Type PLEURAL Fluid Source Fluid Color RED Fluid Appearance CLOUDY Fluid Viscosity LIQUID Fluid WBC 522 Fluid RBC 29947 Impressions: Chest X-Ray 10/26/16 07:00 IMPRESSION: Stable right pleural thickening and peripheral right lung infiltrate. Status: Image reviewed by me - Agree with radiology Assessment & Plan - Diagnosis (1) Oral thrush Is this a current diagnosis for this admission?: YesPlan: New (2) Pleural effusion Is this a current diagnosis for this admission?: YesPlan: Malignant, secondary to squamous cell carcinoma. (3) Dementia Qualifiers: Dementia type: Alzheimer's disease Alzheimer's disease onset: unspecified onset Dementia behavioral disturbance: without behavioral disturbance Qualified Code(s): G30.9 - Alzheimer's disease, unspecified; F02.80 - Dementia in other diseases classified elsewhere without behavioral disturbance Is this a current diagnosis for this admission?: YesPlan: Stable (4) Diabetes mellitus Qualifiers: Diabetes mellitus type: type 2 Diabetes mellitus complication status: with unspecified complications Diabetes mellitus metal treater insulin use: without mcfp use Qualified Code(s): E11.8 - Type 2 diabetes mellitus with unspecified complications; Z79.4 - [facility] (current) use of insulin Is this a current diagnosis for this admission?: YesPlan: Improved (5) Pneumonia Qualifiers: Pneumonia type: due to unspecified organism Laterality: bilateral Lung location: lower lobe of lung Qualified Code(s): J18.9 - Pneumonia, unspecified organism Is this a current diagnosis for this admission?: YesPlan: Stable. Secondary to atelectasis from the pleural effusion. (6) Hypotension Qualifiers: Hypotension type: unspecified hypotension type Qualified Code(s): I95.9 - Hypotension, unspecified Is this a current diagnosis for this admission?: YesPlan: Resolved - Time Time Spent with patient: 35 or more minutes Medications reviewed and adjusted accordingly: Yes - Plan Summary Plan Summary: - Discussed with Dr. dye, plan is to start chemo to reduce size of the effusion and place pleurx catheter for home use until resolved with chemo. will need 3d induction chemo and f/u with oncology next week for further treatment. - continue abx for now, until effusion and atelectasis improved - discussed placement for pleurx with covering surgicalist who will evaluate later today - start PT to work on strength
[2016-10-26] MEDS ORDERED: CARBOPLATIN IV PRN ×2 (13:53→14:22)
[2016-10-26] MEDS ORDERED: NORMAL SALINE IV PRN ×3 (13:53→14:22)
[2016-10-26] MEDS: ONDANSETRON HCL 8 MG TABLET PO SCH ×2 (14:03→22:48)
[2016-10-26] MEDS ORDERED: ETOPOSIDE IV PRN (14:06)
[2016-10-26] MEDS: NORMAL SALINE 1000 ML 1,000 ML IV PRN ×2 (14:50→14:52)
[2016-10-26] MEDS: ONDANSETRON HCL/PF 16 MG, DEXAMETHASONE SOD PHOSPHATE 20 MG in NORMAL SALINE 50 ML IV PRN ×2 (14:51→14:52)
[2016-10-26] MEDS: NYSTATIN/DEXAMETH/DIPHEN SUSP 120 ML PO SCH ×2 (17:32→22:48)
[2016-10-26] MEDS: LEVOFLOXACIN 750 MG TABLET PO SCH (17:32)
--- NOTE | 2016-10-26 18:08 | CONSULTATION REPORT E ---
Consultation Report NAME: ARIANA LOVE : 1945 AGE: 71Y DATE: 10/26/2016 327 A TO: TAYLER IVAN M.D. FROM: LUTHER MCCLURE M.D. Requesting Physician HISTORY OF PRESENT ILLNESS: The patient is a 71-year-old man who recently presented with recurrent right pleural effusion. 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 He has a prior history of melanoma; the cytology is said not to be consistent with melanoma. During his hospitalization, he has had a chest tube placed. He had a family member present at the bedside, and I had a long discussion with them today, explaining the findings from the prior cytology. PAST MEDICAL HISTORY: His past medical history as stated includes a past history of melanoma. He also has a history of hyperlipidemia, chronic arthritis, high blood pressure, diabetes, coronary artery disease, heart valve disease. He has had hernia repair, carotid endarterectomy in the past, tonsillectomy. ALLERGIES: He has no known drug allergies. PHYSICAL EXAMINATION: GENERAL: On exam, he is an elderly man. He is awake and answers all questions appropriately. VITAL SIGNS: His temperature was 98.2. Pulse 102. Respiratory rate 18. Blood pressure 152/74. He has a chest tube in place. No new extremity edema. DIAGNOSTIC TESTS: His labs from 10/26/2016: White count is 15.2; hemoglobin is 12.1; platelet count is 418. His chest x-ray 10/22/2016 shows right pleural effusion. IMPRESSION AND PLAN: The patient is a 71-year-old who presented with malignant pleural effusion, cytology consistent with small cell carcinoma. He comes in with recurrence of the pleural effusion. I explained to him that a Pleurx catheter would be helpful which can be drained at home and prevent repeated hospitalization. In addition, I discussed his diagnosis, explaining that this is not curable but could be palliated with chemotherapy. I discussed using carboplatin and etoposide which are chemotherapy agents approved for the treatment of small cell carcinoma. The side effects I discussed to include but not limited to pancytopenia, risk of neutropenic fever and even thrombocytopenia that might necessitate the use of *------* factors of blood transfusions, hair loss, nausea, peripheral neuropathy. He is willing to be treated, and he will be started on chemotherapy today. The regimen is a 3-day regimen and is a complete cycle 1. Cycle 2 will be due in about a month. I explained that he is well enough to be discharged, I will be glad to see him in the office next week. I explained that after 2 cycles I will repeat CT scans to assess his response. Hopefully, the chemotherapy works. The drainage from the Pleurx catheter should become minimal and gradually stop. I thank you for this consultation and allowing me to be part of his care. DICTATING PHYSICIAN: TAYLER IVAN M.D. [id number] PHY#: [id number] ID: [id number] JOB#: [id number] ACCT: [id number] cc:TAYLER IVAN M.D. >
[2016-10-27] MEDS ORDERED: DEXTROSE 50%-WATER 25 GM/50 ML DISP.SYRIN IV PRN ×2 (00:01)
[2016-10-27] MEDS ORDERED: GLUCAGON,HUMAN RECOMB 1 MG INJ SUBCUT PRN (00:01)
[2016-10-27] MEDS ORDERED: DEXTROSE 40% GEL 15 GM TUBE PO PRN ×2 (00:01)
--- NOTE | 2016-10-27 00:23 | PROGRESS NOTE E ---
Progress Note NAME: ARIANA LOVE : 1945 AGE: 71Y DATE: 10/26/2016 ROOM: 327 The patient presents with a right pleural effusion. Pathology reveals a malignant effusion. SUBJECTIVE: No complaints of shortness of breath. OBJECTIVE: The patient has a right chest tube. VITALS: Temperature is 98.6, pulse 81, blood pressure 117/46. Chest tube is draining 245 mL in the last 24 hours. DIAGNOSTIC DATA: The patient on chest x-ray revealed stable right pleural thickening and peripheral right lung infiltrate. ASSESSMENT: A RIGHT PLEURAL EFFUSION, MALIGNANT. It is still draining out higher than what would be recommended to remove the chest tube. We await medical oncology's recommendation and treatment of his malignant disease. PLAN: 1. Await medical oncology's input and treatment of his malignancy. 2. Continue chest tube. DICTATING PHYSICIAN: ALLAN LOOMIS M.D. [id number] PHY#: [id number] ID: [id number] JOB#: [id number] ACCT: [id number] cc: >
[2016-10-27] MEDS: DILTIAZEM HCL 60 MG TABLET PO SCH ×3 (06:00→21:29)
[2016-10-27] MEDS: ONDANSETRON HCL 8 MG TABLET PO SCH ×3 (06:00→21:30)
[2016-10-27] MEDS ORDERED: NORMAL SALINE IV PRN (08:00)
[2016-10-27] MEDS ORDERED: ETOPOSIDE IV PRN (08:00)
[2016-10-27] MEDS: MEGESTROL ACETATE SUSP 400 MG/10 ML UDCUP PO SCH (10:00)
[2016-10-27] MEDS: MAGNESIUM OXIDE 400 MG TABLET PO SCH (10:00)
[2016-10-27] MEDS: NYSTATIN/DEXAMETH/DIPHEN SUSP 120 ML PO SCH ×4 (10:00→21:31)
[2016-10-27] MEDS: DOCUSATE SODIUM 100 MG CAPSULE PO SCH ×2 (10:00→19:43)
[2016-10-27] MEDS: ASPIRIN 81 MG TABLET, CHEWABLE PO SCH (10:00)
[2016-10-27] MEDS ORDERED: ONDANSETRON HCL INJ/PF 4 MG/2 ML SDV ONE (11:33)
[2016-10-27] MEDS ORDERED: NALOXONE HCL INJ/PF 0.4 MG/1 ML SDV ONE (11:33)
[2016-10-27] MEDS ORDERED: GLYCOPYRROLATE INJ 0.4 MG/2 ML VIAL ONE (11:33)
[2016-10-27] MEDS ORDERED: EPINEPHRINE INJ 1 MG/10 ML DISP.SYRIN ONE (11:34)
[2016-10-27] MEDS ORDERED: GLUCAGON,HUMAN RECOMB 1 MG INJ ONE (11:34)
[2016-10-27] MEDS ORDERED: FLUMAZENIL INJ 0.5 MG/5 ML VIAL IV ONE (11:34)
[2016-10-27] MEDS ORDERED: MIDAZOLAM 2 MG/2 ML INJ ONE (11:34)
[2016-10-27] MEDS: FENTANYL CITRATE INJ/PF 100 MCG/2 ML AMPUL ONE ×2 (13:24→13:43)
[2016-10-27] MEDS ORDERED: LIDOCAINE 1% INJ-PF (10 MG/ML) 30 ML SDV ONE (13:28)
[2016-10-27] MEDS ORDERED: ONDANSETRON HCL/PF 16 MG, DEXAMETHASONE SOD PHOSPHATE 20 MG in NORMAL SALINE 50 ML IV PRN (14:24)
--- NOTE | 2016-10-27 16:38 | PROGRESS NOTE E ---
Progress Note NAME: ARIANA LOVE : 1945 AGE: 71Y DATE: 10/27/2016 ROOM: 327 SUBJECTIVE: I find the patient lying in bed in no acute distress. His dementia persists as before. He is pleasant. Does not really remember meeting me yesterday, but interestingly he can tell me that he is at [facility] and recognizes to read the bed board for today's date and his plan of care, so he is at least oriented enough to adapt to his short-term memory loss. He has no complaints of chest pain today. The right upper chest wall pain from yesterday at the chest tube site has resolved. He has no complaints of nausea, vomiting, or diarrhea. OBJECTIVE: Nurses notes reviewed. VITAL SIGNS: Are stable. The patient is not requiring supplemental oxygen at this time. LUNGS: He has coarse breath sounds bilaterally with absent breath sounds at the right base, rales at the right apex, but he is in no respiratory distress. GENERAL: He is alert and oriented to person, place and time as noted above. His speech is clear and lucid. NEUROLOGIC: He moves all 4 extremities and follows commands without difficulty. ABDOMEN: Is soft, nontender, nondistended with good bowel sounds. CHEST: Chest tube has a scant amount of bloody drainage today. Position appears to be good. ASSESSMENT: MALIGNANT PLEURAL EFFUSION THOUGHT SECONDARY TO HIS SQUAMOUS CELL CARCINOMA LUNG, PRIMARY. PLAN: I discussed the case with Dr. Do, who is covering surgeon, who anticipates placing a Pleurx catheter today. I discussed the case with Dr. Colindres who will begin induction therapy this evening in an effort to prevent recurrence of the effusion. DICTATING PHYSICIAN: COLLEEN VERDUZCO M.D. [id number] PHY#: [id number] ID: [id number] JOB#: [id number] ACCT: [id number] cc: >
[2016-10-27] MEDS: LEVOFLOXACIN 750 MG TABLET PO SCH (19:44)
[2016-10-27] MEDS: MORPHINE SULFATE 10 MG/ML INJ IV PRN (19:45)
[2016-10-27] MEDS: NORMAL SALINE 1000 ML 1,000 ML IV PRN (19:52)
[2016-10-27] MEDS: INSULIN LISPRO 100 UNIT/ML 3 ML VIAL SUBCUT PRN (23:55)
[2016-10-28] MEDS: DILTIAZEM HCL 60 MG TABLET PO SCH ×3 (05:22→21:18)
[2016-10-28] MEDS: ONDANSETRON HCL 8 MG TABLET PO SCH ×3 (05:23→21:18)
[2016-10-28] MEDS: INSULIN LISPRO 100 UNIT/ML 3 ML VIAL SUBCUT PRN ×3 (06:42→21:41)
[2016-10-28 07:58] LABS: HEMATOCRIT 33.2 % (37.9-51.0); HEMOGLOBIN 11.2 g/dL (13.5-17.0); HGB HCT DIFFERENCE 0.4; MEAN CORPUSCULAR HEMOGLOBIN 30.7 pg (27.0-33.4); MEAN CORPUSCULAR HGB CONC 33.9 g/dL (32.0-36.0); MEAN CORPUSCULAR VOLUME 91 fl (80-97); RED BLOOD COUNT 3.66 10^6/uL (4.35-5.55); RED CELL DISTRIBUTION WIDTH 12.3 % (11.5-14.0); WHITE BLOOD COUNT 10.6 10^3/uL (4.0-10.5)
[2016-10-28] MEDS ORDERED: ETOPOSIDE IV PRN (08:00)
[2016-10-28] MEDS ORDERED: NORMAL SALINE IV PRN (08:00)
--- NOTE | 2016-10-28 10:17 | OPERATIVE REPORT E ---
Operative Report NAME: ARIANA LOVE : 1945 AGE: 71Y DATE OF SURGERY: 10/27/2016 ROOM: 327 PREOPERATIVE DIAGNOSIS: Malignant pleural effusion. POSTOPERATIVE DIAGNOSIS: Malignant pleural effusion. OPERATION: Placement of Pleurx catheter, right pleural space. SURGEON: ALLAN LOOMIS M.D. JACQUARD TWINE POLISHER OPERATOR: KARLEE SPAIN M.D. ANESTHESIA: IV sedation with local. INDICATIONS FOR PROCEDURE: The patient presents with recurrent right pleural effusion. The patient was found to have a malignancy in the pleural fluid of neuroendocrine origin. Because it is recurrent, it is recommended that a Pleurx catheter be placed. FINDINGS AT PROCEDURE: A right-sided Pleurx catheter was placed via the sixth intercostal space in the midaxillary line with good positioning noted on the follow-up chest x-ray. PROCEDURE: After informed consent was obtained, the patient was taken to the procedure room and placed in supine position. The patient had a previously placed chest tube which was prepped out of the site for the Pleurx catheter placement. IV sedation was given. The patient's skin overlying the sixth intercostal space in the midaxillary line was then injected with local anesthesia. The needle and sheath was then inserted through an incision made in the skin over the seventh rib and through the sixth intercostal space, placing it into the pleural space. A guidewire was placed through the catheter, and the catheter was removed. Next, approximately 5 cm medial anteriorly along the skin, a location was chosen for the catheter exit site. This was injected with local anesthesia with the tract being injected with local anesthesia from this position to the guidewire. Incision was then made in the skin. The Pleurx catheter was then tunneled from this incision to the guidewire incision, burying the cuff underneath the skin. Next, over the guidewire, sequential dilation was then performed without difficulty. A dilator and sheath was finally placed over the guidewire and the guidewire and dilator removed. The end of the catheter was placed through the sheath with the peel-away sheath then being removed. The catheter was then hooked up to enclosed suction. The skin incision at the insertion site was then closed using 4-0 Vicryl suture. The catheter as it exited the skin was secured to the skin using 3-0 Vicryl suture. Dry dressings were then applied. A stat chest x-ray was ordered which showed no pneumothorax with the catheter being present in the lower pleural space in good position. The patient was then awakened and taken from the procedure room in stable condition. ESTIMATED BLOOD LOSS: Minimal. COMPLICATIONS: None. CONDITION OF THE PATIENT AT END OF PROCEDURE: Stable. SPECIMENS: None. DRAINS AND PACKS: None. CLASSIFICATION OF WOUND: Clean. DICTATING PHYSICIAN: ALLAN LOOMIS M.D. [id number] Y#: [id number] ID: [id number] JOB#: [id number] ACCT: [id number] cc:ALLAN LOOMIS M.D. >
[2016-10-28 11:04] LABS: BASOPHILS % (MANUAL) 0 % (0-2); EOSINOPHILS % (MANUAL) 0 % (0-6); LYMPHOCYTES % (MANUAL) 1 % (13-45); POLYCHROMASIA SLIGHT; TOTAL CELLS COUNTED 100; TOXIC GRANULATION SLIGHT
[2016-10-28] MEDS: MEGESTROL ACETATE SUSP 400 MG/10 ML UDCUP PO SCH (11:32)
[2016-10-28] MEDS: DOCUSATE SODIUM 100 MG CAPSULE PO SCH ×2 (11:33→17:05)
[2016-10-28] MEDS: MAGNESIUM OXIDE 400 MG TABLET PO SCH (11:33)
[2016-10-28] MEDS: NYSTATIN/DEXAMETH/DIPHEN SUSP 120 ML PO SCH ×4 (11:34→21:20)
[2016-10-28] MEDS: ASPIRIN 81 MG TABLET, CHEWABLE PO SCH (11:34)
--- NOTE | 2016-10-28 12:46 | PDOC PROGRESS REPORT ---
Subjective Progress Note for:: 10/28/16 Subjective:: no complaints Physical Exam Vital Signs: Temp Pulse Resp BP Pulse Ox 98.2 F 91 18 120/71 98 10/28/16 07:53 10/28/16 07:53 10/28/16 07:53 10/28/16 07:53 10/28/16 07:53 Intake & Output 10/27/16 10/28/16 10/29/16 06:59 06:59 06:59 Intake Total 3403 915 Output Total 360 425 Balance 3043 490 Weight 70.9 kg General appearance: PRESENT: no acute distress, cooperative Respiratory exam: PRESENT: decreased breath sounds - at right base. pleurex catheter in place. dressings changed. Cardiovascular exam: PRESENT: RRR Results Laboratory Results: 10/27/16 05:44 10/27/16 05:44 WBC 10.6 H RBC 3.66 L Hgb 11.2 L Hct 33.2 L MCV 91 MCH 30.7 MCHC 33.9 RDW 12.3 Plt Count 373 Seg Neutrophils % Not Reportable Lymphocytes % Not Reportable Monocytes % Not Reportable Eosinophils % Not Reportable Basophils % Not Reportable Absolute Neutrophils Not Reportable Absolute Lymphocytes Not Reportable Absolute Monocytes Not Reportable Absolute Eosinophils Not Reportable Absolute Basophils Not Reportable 10/25/16 15:00 Pleural Fluid Gram Stain - Final Impressions: Chest X-Ray 10/28/16 07:00 IMPRESSION: Stable right pleural effusion. Assessment & Plan - Diagnosis (1) Pleural effusion Is this a current diagnosis for this admission?: YesPlan: defer to oncology for disposition and pleurex catheter management. recommend referral to thoracic surgery ([facility]) if effusion persists.
[2016-10-28] MEDS: NORMAL SALINE 1000 ML 1,000 ML IV PRN ×2 (13:23→15:14)
--- NOTE | 2016-10-28 14:09 | PDOC PROGRESS REPORT ---
Subjective Progress Note for:: 10/28/16 Subjective:: Reason for visit: Follow-up right pleural effusion, squamous cell carcinoma of the lung, hypotension, hyperglycemia, dementia Hospital course: See H&P for full details. The patient was admitted with hypotension and hyperglycemia and has a history of melanoma and has been found with recurrent right pleural effusion that previous thoracentesis and evaluation confirms squamous cell carcinoma of the lung as likely primary. His respiratory status decompensated requiring emergent chest tube placement that initially drained nearly 2 L of bloody fluid. I inherited his care Alivia and he is far more stable than previously described. he is now s/p pleurex catheter placement and tolerated the procedure without complication. he is now undergoing chemo per dr dye and seems to be tolerating as well. RLL has not fully reinflated however and CT scan chest with IV contrast is still pending. ROS: Total 10 systems reviewed with pertinent positives and negatives noted above, all remaining systems negative. Physical Exam Vital Signs: Temp Pulse Resp BP Pulse Ox 98.2 F 91 18 120/71 98 10/28/16 07:53 10/28/16 07:53 10/28/16 07:53 10/28/16 07:53 10/28/16 07:53 Intake & Output 10/27/16 10/28/16 10/29/16 06:59 06:59 06:59 Intake Total 3403 1465 610 Output Total 360 425 Balance 3043 1040 610 Weight 70.9 kg General appearance: PRESENT: no acute distress, cooperative Eye exam: PRESENT: EOMI. ABSENT: conjunctival injection Mouth exam: PRESENT: moist, neck supple Neck exam: PRESENT: full ROM. ABSENT: tracheal deviation Respiratory exam: PRESENT: chest wall tenderness - at chest tube site with palpation, other - absent BSs at Rt base, rales to Rt apex and crackles throughout the left. ABSENT: accessory muscle use Cardiovascular exam: PRESENT: RRR. ABSENT: tachycardia GI/Abdominal exam: PRESENT: normal bowel sounds, soft. ABSENT: tenderness Extremities exam: ABSENT: pedal edema, tenderness Musculoskeletal exam: PRESENT: full ROM Neurological exam: PRESENT: alert, awake, oriented to person, oriented to place , oriented to time, oriented to situation Psychiatric exam: PRESENT: appropriate affect, normal mood Skin exam: PRESENT: warm, other - pale. ABSENT: erythema Results Laboratory Results: 10/27/16 05:44 10/27/16 05:44 WBC 10.6 H RBC 3.66 L Hgb 11.2 L Hct 33.2 L MCV 91 MCH 30.7 MCHC 33.9 RDW 12.3 Plt Count 373 Seg Neutrophils % Not Reportable Lymphocytes % Not Reportable Monocytes % Not Reportable Eosinophils % Not Reportable Basophils % Not Reportable Absolute Neutrophils Not Reportable Absolute Lymphocytes Not Reportable Absolute Monocytes Not Reportable Absolute Eosinophils Not Reportable Absolute Basophils Not Reportable 10/25/16 15:00 Pleural Fluid Gram Stain - Final Impressions: Chest CT 10/28/16 00:00 IMPRESSION: 1. Medial right lower lobe nodule that appears to be larger than on the prior study. 2. Sub carinal adenopathy. 3. Changes in the right lung possibly suggesting prior radiation. 4. It appears that a large-bore chest tube is been removed from the anterior aspect of the chest. 5. A smaller catheter is present in the lower right hemithorax. Chest X-Ray 10/28/16 07:00 IMPRESSION: Stable right pleural effusion. Status: Imported from PACS Assessment & Plan - Diagnosis (1) Oral thrush Is this a current diagnosis for this admission?: YesPlan: improved. appetite mildly improved (2) Pleural effusion Is this a current diagnosis for this admission?: YesPlan: Malignant, secondary to squamous cell carcinoma. improved after tube placement. continue chemo and anticipate d/c home in am with home health nursing to assist with pleurex catheter at home. (3) Dementia Qualifiers: Dementia type: Alzheimer's disease Alzheimer's disease onset: unspecified onset Dementia behavioral disturbance: without behavioral disturbance Qualified Code(s): G30.9 - Alzheimer's disease, unspecified; F02.80 - Dementia in other diseases classified elsewhere without behavioral disturbance Is this a current diagnosis for this admission?: YesPlan: stable (4) Diabetes mellitus Qualifiers: Diabetes mellitus type: type 2 Diabetes mellitus complication status: with unspecified complications Diabetes mellitus crimp setter insulin use: without group home use Qualified Code(s): E11.8 - Type 2 diabetes mellitus with unspecified complications; Z79.4 - orthophotography technician (current) use of insulin Is this a current diagnosis for this admission?: Yes (5) Pneumonia Qualifiers: Pneumonia type: due to unspecified organism Laterality: bilateral Lung location: lower lobe of lung Qualified Code(s): J18.9 - Pneumonia, unspecified organism Is this a current diagnosis for this admission?: YesPlan: Stable. Secondary to atelectasis from the pleural effusion. continue Abx (6) Hypotension Qualifiers: Hypotension type: unspecified hypotension type Qualified Code(s): I95.9 - Hypotension, unspecified Is this a current diagnosis for this admission?: YesPlan: resolved - Time Time Spent with patient: 25-34 minutes Anticipated discharge: Home with Homehealth - [facility] for cath assistance and care Within: within 24 hours
[2016-10-28] MEDS ORDERED: ONDANSETRON HCL/PF 16 MG, DEXAMETHASONE SOD PHOSPHATE 20 MG in NORMAL SALINE 50 ML IV PRN (14:24)
--- NOTE | 2016-10-28 16:10 | Progress Note ---
Provider Note Provider Note: recommend home drainage via pleurex catheter of up to 500ml daily as tolerated until instructed otherwise by PCP or oncologist in an effort to prevent rapid reaccumulation of pleural fluid resulting in further RLL collapse/atelectasis.
[2016-10-28] MEDS: LEVOFLOXACIN 750 MG TABLET PO SCH (17:05)
[2016-10-28] MEDS: MORPHINE SULFATE 10 MG/ML INJ IV PRN (17:05)
[2016-10-29] MEDS: DILTIAZEM HCL 60 MG TABLET PO SCH (05:00)
[2016-10-29] MEDS: ONDANSETRON HCL 8 MG TABLET PO SCH (05:00)
[2016-10-29] MEDS: NORMAL SALINE 1000 ML 1,000 ML IV PRN (05:02)
[2016-10-29] MEDS: DOCUSATE SODIUM 100 MG CAPSULE PO SCH (10:39)
[2016-10-29] MEDS: MAGNESIUM OXIDE 400 MG TABLET PO SCH (10:39)
[2016-10-29] MEDS: ASPIRIN 81 MG TABLET, CHEWABLE PO SCH (10:40)
[2016-10-29] MEDS: MEGESTROL ACETATE SUSP 400 MG/10 ML UDCUP PO SCH (10:41)
[2016-10-29] MEDS: NYSTATIN/DEXAMETH/DIPHEN SUSP 120 ML PO SCH (10:44)
[2016-10-29 10:54] LABS: ALBUMIN 2.4 g/dL (3.5-5.0); ANION GAP 10 (5-19); BLOOD UREA NITROGEN 21 mg/dL (7-20); CARBON DIOXIDE 21 mmol/L (22-30); CHLORIDE 102 mmol/L (98-107); CREATININE RESULT 0.92 mg/dL (0.52-1.25); GLUCOSE 192 mg/dL (75-110); POTASSIUM 5.8 mmol/L (3.6-5.0)
[2016-10-29 10:55] LABS: ALANINE AMINOTRANSFERASE 23 U/L (21-72); ALKALINE PHOSPHATASE 58 U/L (38-126); ASPARTATE AMINO TRANSFERASE 30 U/L (17-59)
[2016-10-29 10:56] LABS: BILIRUBIN,DIRECT 0.4 mg/dL (0.0-0.4); BILIRUBIN,TOTAL 0.5 mg/dL (0.2-1.3)
[2016-10-29 13:32] VITALS: BP 125/70
--- NOTE | 2016-10-29 19:24 | DISCHARGE SUMMARY E ---
Discharge Summary NAME: ARIANA LOVE : 1945 AGE: 71Y ADMITTED: 10/22/2016 DISCHARGED: 10/29/2016 DISCHARGE DIAGNOSES: 1. Small-cell lung cancer. 2. Malignant pleural effusion secondary to the above, status post Pleurx catheter placement. 3. Alzheimer dementia. 4. Diabetes, type 2, mild, controlled with diet. 5. Probable postobstructive pneumonia secondary to the above. 6. Transient hypotension secondary to the above. CHRONIC MEDICAL CONDITIONS INCLUDE: 1. Hyperlipidemia. 2. Hypertension. 3. Diabetes, type 2, diet controlled. 4. Prostate cancer. 5. Dementia. DISCHARGE MEDICATIONS: 1. Aspirin 81 mg daily. 2. Cardizem CD 180 mg daily. 3. [place] 5 mg/325 mg every 6 hours as needed, total of 10, no refills. 4. Levaquin 750 mg daily x7 days. 5. Magnesium oxide 400 mg daily. 6. Megace 400 mg daily. 7. Ondansetron 8 mg t.i.d. as needed. 8. Flomax 0.4 mg daily. CONSULTATIONS: 1. General surgery. 2. Dr. Colindres, oncology. CHIEF COMPLAINT: Hypotension. HOSPITAL COURSE: The patient is a 71-year-old white male with a past medical history significant for diabetes, prostate cancer, a recent pleural effusion, status post thoracentesis, hypertension, and dementia who presented to the hospital from Radiology with reports of hypotension and systolic blood pressures in the 90s. There was some concern for neoplastic process contributing to his pleural effusion as no clear etiology as yet had been elucidated, and on his arrival in Radiology he was initially found to be hyperglycemic and hypotensive, so he was referred to the Emergency Room for further evaluation. In the ER blood pressures were found to be in the 80s with complaints of generalized weakness for several days and nontraumatic falls at home. He was given a bolus of fluids which improved his systolic blood pressures, but they were fluctuating and due to his appearance and underlying condition we were asked to admit him for further evaluation. He was noted to have an elevated white blood cell count of 16.7 and family reported cough with decreased oral intake. Imaging revealed suspicion for pleural effusion and compressive atelectasis, possible pneumonia at the right lower lobe, and so he was admitted and placed on broad-spectrum antibiotics and IV fluids. Slowly his condition improved but during this time the results of the thoracentesis were revealed showing a small cell probable lung primary as the likely source of what is now known as a malignant pleural effusion. Oncology was consulted and recommended initiation of chemotherapy, and ultimately he rapidly decompensated and required placement of a chest tube as the pleural effusion accumulated to the point of respiratory collapse and distress. He was able to avoid intubation and mechanical ventilation with urgent placement of a chest tube by General Surgery at the bedside with successful liberation of over 2 L of bloody fluid. Ultimately a Pleurx catheter has been placed and he is to go home with outpatient followup with his oncologist and primary care provider as well as Home Health to help with care of the Pleurx catheter. We offered placement in rehab but the patient is insistent on going home. His son, Robbie, has quit his job to be with his father during this time to assist with his care and so will be available 03/01 to help with transport and care at home. He feels comfortable taking his father home at this time. On the day of discharge the patient is awake, alert, oriented to person and place and circumstances. He is also oriented enough to know to look to the board to find date and time and freely admits he cannot remember without checking. He knows his son by name and remembers me as his primary care provider. He is breathing easily without any respiratory distress, the Pleurx catheter in the right chest wall is oozing a bit of serosanguineous fluid onto the bandage and is yet to be drained by the nursing staff today, and there is some mild tenderness at the insertion site but there is no erythema or fluctuant mass there. He has diminished breath sounds at the right base with rales to the right apex and he has crackles throughout the left base but otherwise no wheeze or rhonchi are noted and no accessory muscle use. Cardiac exam has regular rate and rhythm at present and I do not hear an obvious murmur, but his breath sounds may obscure. He has no JVD. His radial pulses are 2+ and symmetric and he has good capillary refill at the fingers and toes. Abdomen is soft, nontender, with good bowel sounds, and he is tolerating his diet better today than previous. He has been up ambulating with assistance, and though he is easily fatigued he is able to manage his normal activities of daily living here at the bedside. At this point he is stable for discharge home. I had previously spoken with Drs. Colindres and Hi regarding plan for this patient and arrangements have been made for Home Health to assist with daily care of his Pleurx catheter. He is to remove up to 500 mL of fluid on a daily basis as he tolerates and continue routine dressing changes and care at the insertion site. He is to follow up with Dr. Colindres on Tuesday at 1:00 in the afternoon. He is to follow up with his primary care provider next week for routine hospital followup. He is to return to the emergency department for any decompensation in his condition. Both he and his family express no concerns about going home today. All questions were asked and answered to their satisfaction, and they seemed pleased with the care he received while here. DICTATING PHYSICIAN: COLLEEN VERDUZCO M.D. [id number] PHY#: [id number] ID: [id number] JOB#: [id number] ACCT: [id number] cc:COLLEEN VERDUZCO M.D. >
== END 2016-10-29 14:37 | disposition home health service (06) | DRG 180 ==
LOC: ER 13:31 → EH 17:52 → UNDOADMIN 18:18 → EH 19:38 → 3S 19:38
PROC: 0W9930Z Drainage of Right Pleural Cavity with Drainage Device, Percutaneous Approach (ICD-10-PCS; principal; 2016-10-25)
PROC: 0W9930Z Drainage of Right Pleural Cavity with Drainage Device, Percutaneous Approach (ICD-10-PCS; 2016-10-27)
DX: C34.90 Malignant neoplasm of unspecified part of unspecified bronchus or lung (principal); J18.9 Pneumonia, unspecified organism; J91.0 Malignant pleural effusion; B37.0 Candidal stomatitis; I95.89 Other hypotension; I10 Essential (primary) hypertension; E78.5 Hyperlipidemia, unspecified; E11.9 Type 2 diabetes mellitus without complications; C61 Malignant neoplasm of prostate; G30.9 Alzheimer's disease, unspecified; F02.80 Dementia in other diseases classified elsewhere, unspecified severity, without behavioral disturbance, psychotic disturbance, mood disturbance, and anxiety; Z95.2 Presence of prosthetic heart valve
CPT/HCPCS: 32554; 36415; 36600; 71010; 71020; 71260; 80048; 80053; 80076; 81001; 82550; 82803; 82962; 83605; 83690; 83735; 83880; 84484; 85025; 85610; 87040; 87070; 87075; 87086; 87205; 89050; 93005; 93010; 94640; 94799; 96367; 96374; 96413; 96415; 99285; A4300; G8978-GP; G8979-GP; J0171; J1100; J1160; J1610; J1650; J1815; J1956; J2250; J2270; J2310; J2405; J3010; J3490; J7030; J7040; J9045; J9181; S0119

== ENCOUNTER 2016-11-08 12:17 | Inpatient (IN) | payer MEDICARE ==
[2016-11-08] MEDS ORDERED: NORMAL SALINE 500 ML IV PRN (13:09)
[2016-11-08 13:19] LABS: ALANINE AMINOTRANSFERASE 26 U/L (21-72); ALBUMIN 2.4 g/dL (3.5-5.0); ALKALINE PHOSPHATASE 71 U/L (38-126); ANION GAP 13 (5-19); ASPARTATE AMINO TRANSFERASE 22 U/L (17-59); BILIRUBIN,DIRECT 0.4 mg/dL (0.0-0.4); BILIRUBIN,TOTAL 0.6 mg/dL (0.2-1.3); BLOOD UREA NITROGEN 25 mg/dL (7-20); CALCIUM 8.7 mg/dL (8.4-10.2); CARBON DIOXIDE 20 mmol/L (22-30); CHLORIDE 99 mmol/L (98-107); CREATINE KINASE 31 U/L (55-170); CREATININE RESULT 0.94 mg/dL (0.52-1.25); GLUCOSE 165 mg/dL (75-110); POTASSIUM 4.2 mmol/L (3.6-5.0); SODIUM 131.5 mmol/L (137-145); TOTAL PROTEIN 5.1 g/dL (6.3-8.2)
[2016-11-08 13:28] LABS: CREATINE KINASE MB 0.79 ng/mL (<4.55)
--- NOTE | 2016-11-08 13:28 | RADIOLOGY REPORT (SQ) ---
EXAM DESCRIPTION: CHEST SINGLE VIEW COMPLETED DATE/TIME: 11/08/2016 1:18 pm REASON FOR STUDY: hypotension COMPARISON: 10/28/2016 EXAM PARAMETERS: NUMBER OF VIEWS: One view. TECHNIQUE: Single frontal radiographic view of the chest acquired. RADIATION DOSE: NA LIMITATIONS: None. FINDINGS: LUNGS AND PLEURA: Stable small right pleural effusion. No new airspace opacities. No pne umothorax. MEDIASTINUM AND HILAR STRUCTURES: No masses. Contour normal. HEART AND VASCULAR STRUCTURES: Heart stable in size. Normal vasculature. BONES: No acute findings. HARDWARE: Stable with right PleurX catheter in place. OTHER: No other significant finding. IMPRESSION: NO ACUTE CARDIOPULMONARY PROCESS IDENTIFIED. STABLE SMALL RIGHT PLEURAL EFFUSION WITH P LEURX CATHETER IN PLACE. TECHNICAL DOCUMENTATION: JOB ID: [id number]
[2016-11-08 13:36] LABS: TROPONIN I < 0.012 ng/mL
[2016-11-08 13:39] LABS: HEMATOCRIT 29.5 % (37.9-51.0); HEMOGLOBIN 9.7 g/dL (13.5-17.0); HGB HCT DIFFERENCE -0.4; MEAN CORPUSCULAR HEMOGLOBIN 30.1 pg (27.0-33.4); MEAN CORPUSCULAR HGB CONC 32.9 g/dL (32.0-36.0); MEAN CORPUSCULAR VOLUME 92 fl (80-97); RED BLOOD COUNT 3.23 10^6/uL (4.35-5.55); RED CELL DISTRIBUTION WIDTH 12.3 % (11.5-14.0); WHITE BLOOD COUNT 6.8 10^3/uL (4.0-10.5)
[2016-11-08 13:43] LABS: BASOPHILS % (MANUAL) 1 % (0-2); EOSINOPHILS % (MANUAL) 1 % (0-6); LYMPHOCYTES % (MANUAL) 14 % (13-45); TOTAL CELLS COUNTED 100
[2016-11-08 13:53] LABS: BAND NEUTROPHILS % (MANUAL) 11 % (3-5)
[2016-11-08 13:58] LABS: ANISOCYTOSIS SLIGHT; BURR CELLS SLIGHT; OVALOCYTES SLIGHT; POIKILOCYTOSIS 1+; POLYCHROMASIA SLIGHT; ROULEAUX SLIGHT; SCHISTOCYTES SLIGHT; TOXIC GRANULATION SLIGHT; TOXIC VACUOLATION PRESENT
[2016-11-08 14:08] LABS: APPEARANCE,URINE CLEAR; BILIRUBIN,URINE NEGATIVE (NEGATIVE); GLUCOSE, URINE >=500 mg/dL (NEGATIVE); KETONES,URINE TRACE mg/dL (NEGATIVE); LEUKOCYTE ESTERASE,URINE NEGATIVE (NEGATIVE); NITRITE,URINE NEGATIVE (NEGATIVE); PROTEIN,URINE 100 mg/dL (NEGATIVE); URINE SPECIFIC GRAVITY 1.026; UROBILINOGEN,URINE NEGATIVE mg/dL (<2.0)
--- NOTE | 2016-11-08 14:54 | ER Document Report ---
ED General - General Chief Complaint: Low Blood Pressure Stated Complaint: BLOOD PRESSURE PROBLEMS Time Seen by Provider: 11/08/16 12:48 Mode of Arrival: Wheelchair Information source: Patient Notes: This is a 71-year-old man with a recent diagnosis of small cell lung CA who presents to the emergency room with weakness, dehydration in the setting of hypotension with a blood pressure at home and 70/60 range. Patient was hypotensive on arrival to the emergency room (85/57) and tachycardic (114). TRAVEL OUTSIDE OF THE [place] IN LAST 30 DAYS: No - HPI Onset: Last week Onset/Duration: Gradual Quality of pain: No pain Severity: None Pain Level: Denies Associated symptoms: denies: Chest pain, Fever, Shortness of breath Exacerbated by: Denies Relieved by: Denies Similar symptoms previously: Yes Recently seen / treated by doctor: Yes - Related Data Allergies/Adverse Reactions: No Known Allergies Allergy (Verified 10/14/16 16:02) Home Medications: Current Home Medications Aspirin [Aspirin 81 mg Chewable Tablet] 81 mg PO Q6AM 11/08/16 [History] Diltiazem HCl [Diltiazem 24Hr Cd] 180 mg PO QPM 11/08/16 [History] Glimepiride [Amaryl 1 mg Tablet] 1 mg PO WBRKFST 11/08/16 [History] Magnesium Oxide [Mag-Ox 400 mg Tablet] 400 mg PO Q12A 11/08/16 [History] Megestrol Acetate [Megace] 400 mg PO WBRKFST 11/08/16 [History] Ondansetron HCl [Zofran 8 mg Tablet] 8 mg PO Q8 11/08/16 [History] Tamsulosin HCl [Flomax 0.4 mg Cap.sr] 0.4 mg PO QPM 11/08/16 [History] Past Medical History - General Information source: Patient, Relative - Social History Smoking Status: Former Smoker Cigarette use (# per day): No Chew tobacco use (# tins/day): No Frequency of alcohol use: None Drug Abuse: None Lives with: Family Family History: CAD Patient has suicidal ideation: No Patient has homicidal ideation: No - Past Medical History Cardiac Medical History: Reports: Hx Hypercholesterolemia, Hx Hypertension - meds x yrs, Hx Heart Murmur Denies: Hx Coronary Artery Disease, Hx Heart Attack Pulmonary Medical History: Denies: Hx Asthma, Hx Bronchitis, Hx COPD, Hx Pneumonia Neurological Medical History: Denies: Hx Cerebrovascular Accident, Hx Seizures Endocrine Medical History: Reports: Hx Diabetes Mellitus Type 2. Denies: Hx Diabetes Mellitus Type 1 Renal/ Medical History: Denies: Hx Peritoneal Dialysis Musculoskeltal Medical History: Denies Hx Arthritis Psychiatric Medical History: Reports: Hx Dementia Past Surgical History: Reports: Hx Cardiac Surgery - valve replacement, Hx Carotid Endarterectomy, Hx Tonsillectomy, Hx Valve Replacement - Status post aortic valve replacement with bioprosthetic valve - Immunizations Hx Diphtheria, Pertussis, Tetanus Vaccination: No Review of Systems - Review of Systems Constitutional: denies: Chills, Fever EENT: No symptoms reported Cardiovascular: See HPI Respiratory: See HPI Gastrointestinal: No symptoms reported Genitourinary: No symptoms reported Male Genitourinary: See HPI Musculoskeletal: No symptoms reported Skin: No symptoms reported Hematologic/Lymphatic: No symptoms reported Neurological/Psychological: No symptoms reported Physical Exam - Vital signs Vitals: Pulse Resp BP Pulse Ox 114 H 20 85/57 L 96 11/08/16 12:20 11/08/16 12:20 11/08/16 12:20 11/08/16 12:20 Notes: Physical exam: GENERAL: 71-year-old man, appears weak. Soft HEAD: Atraumatic, normocephalic. EYES: Pupils equal round and reactive to light, extraocular movements intact, sclera anicteric, conjunctiva are normal. ENT: TMs normal, nares patent, oropharynx clear without exudates. Moist mucous membranes. NECK: Normal range of motion, supple without lymphadenopathy or JVD. LUNGS: Breath sounds clear to auscultation bilaterally and equal. No wheezes rales or rhonchi. HEART: Regular rate and rhythm without murmurs, rubs or gallops. ABDOMEN: Soft, the patient does have normoactive yamel no tenderness to palpation. No guarding, no rebound. No masses appreciated. EXTREMITIES: Normal range of motion, no pitting or edema. No clubbing or cyanosis. NEUROLOGICAL: Cranial nerves II through XII grossly intact. Normal speech, normal gait. PSYCH: Normal mood, normal affect. SKIN: Warm, Dry, normal turgor, no rashes or lesions noted. Course - Re-evaluation Re-evalutation: 11/08/16 14:53 Note: The patient did have a distended bladder on exam and stated he could not urinate. A Silvestre was placed. The urine looks dark. Note: Patient did have a few runs of ventricular tachycardia while the Silvestre was being placed. 11/08/16 17:07 - Vital Signs Vital signs: Temp Pulse Resp BP Pulse Ox 114 H 24 H 111/64 99 11/08/16 12:20 11/08/16 16:01 11/08/16 16:01 11/08/16 16:01 11/08/16 17:07 - Laboratory Result Diagrams: 11/08/16 12:42 11/08/16 12:42 Laboratory results interpreted by me: 11/08/16 11/08/16 11/08/16 12:42 12:42 13:40 RBC 3.23 L Hgb 9.7 L Hct 29.5 L Band Neutrophils % 11 H Monocytes % (Manual) 24 H Metamyelocytes % 2 H Myelocytes % 1 H Promyelocytes % 3 H Abs Monocytes (Manual) 1.6 H Sodium 131.5 L Carbon Dioxide 20 L BUN 25 H Glucose 165 H Creatine Kinase 31 L Total Protein 5.1 L Albumin 2.4 L Urine Protein 100 H Urine Glucose (UA) >=500 H Urine Ketones TRACE H - Diagnostic Test Radiology reviewed: Image reviewed, Reports reviewed - Right pleural catheter in place. - EKG Interpretation by Me Rate: Normal Rhythm: NSR - EKG shows normal sinus rhythm with a ventricular rate of 93, evidence of a right bundle branch block, PVCs. Critical Care Note - Critical Care Note Total time excluding time spent on procedures (mins): 55 Discharge - Discharge Clinical Impression: Dehydration, Hypotension, Dysrhythmia Condition: Stable Disposition: ADMITTED INPATIENT Admitting Provider: Hospitalist - [facility] Admitted: Telemetry
[2016-11-08] MEDS ORDERED: IPRATROPIUM/ALBUTEROL 0.5-2.5 MG/3 ML AMPUL NEB PRN (15:06)
[2016-11-08] MEDS ORDERED: ACETAMINOPHEN 325 MG TABLET PO PRN (15:06)
[2016-11-08] MEDS ORDERED: ONDANSETRON HCL INJ/PF 4 MG/2 ML SDV IV PRN ×2 (15:06→15:55)
--- NOTE | 2016-11-08 16:04 | PDOC H&P ---
History of Present Illness Admission Date/PCP: ADRIANA LEHMAN Patient complains of: Weakness and inability to urinate History of Present Illness: ARIANA LOVE III is a 71 year old male who is known to our service after a recent hospital stay with a discharge on 10/29. This is a 71-year-old man with a recent diagnosis of small cell lung CA who presents to the emergency room with weakness, dehydration in the setting of hypotension with a blood pressure at home and 70/60 range. Patient was hypotensive on arrival to the emergency room (85/57) and tachycardic (114). He underwent one cycle of chemotherapy by Dr Colindres according to son. He has had no nausea or vomiting but has no appetite with very poor intake in the last 2 weeks. His weight is down 10 lbs in the last 2 weeks and he has become progressively weaker. He was discharged with a pleurx catheter to drain malignant pleural effusion which is not draining much according to his sons. Past Medical History Cardiac Medical History: Reports: Hyperlipidema, Hypertension - meds x yrs, Heart Murmur Denies: Coronary Artery Disease, Myocardial Infarction Pulmonary Medical History: Denies: Asthma, Bronchitis, Chronic Obstructive Pulmonary Disease (COPD), Pneumonia Neurological Medical History: Denies: Seizures Endocrine Medical History: Reports: Diabetes Mellitus Type 2 Denies: Diabetes Mellitus Type 1 Malignancy Medical History: Reports: Lung Cancer, Skin Cancer GI Medical History: Reports: None Musculoskeltal Medical History: Denies: Arthritis Skin Medical History: Reports: None Psychiatric Medical History: Reports: Dementia Traumatic Medical History: Reports: None Hematology: Denies: Anemia Infectious Medical History: Reports: None Past Surgical History Past Surgical History: Reports: Carotid Endarterectomy, Tonsillectomy, Valve Replacement - Status post aortic valve replacement with bioprosthetic valve Social History Information Source: Relative Smoking Status: Former Smoker Frequency of Alcohol Use: None Hx Recreational Drug Use: No Drugs: None Hx Prescription Drug Abuse: No - Advance Directive Resuscitation Status: Full Code Surrogate healthcare decision maker:: son Family History Family History: CAD Parental Family History Reviewed: Yes Children Family History Reviewed: Yes Sibling(s) Family History Reviewed.: Yes Medication/Allergy Home Medications: Aspirin [Aspirin 81 mg Chewable Tablet] 81 mg PO Q6AM 11/08/16 Diltiazem HCl [Diltiazem 24Hr Cd] 180 mg PO QPM 11/08/16 Glimepiride [Amaryl 1 mg Tablet] 1 mg PO WBRKFST 11/08/16 Magnesium Oxide [Mag-Ox 400 mg Tablet] 400 mg PO Q12A 11/08/16 Megestrol Acetate [Megace] 400 mg PO WBRKFST 11/08/16 Ondansetron HCl [Zofran 8 mg Tablet] 8 mg PO Q8 11/08/16 Tamsulosin HCl [Flomax 0.4 mg Cap.sr] 0.4 mg PO QPM 11/08/16 Allergies/Adverse Reactions: No Known Allergies Allergy (Verified 10/14/16 16:02) Review of Systems Constitutional: PRESENT: anorexia, fatigue, weakness, weight loss Eyes: ABSENT: visual disturbances Ears: PRESENT: as per HPI Cardiovascular: PRESENT: dyspnea on exertion Respiratory: PRESENT: cough, dyspnea Gastrointestinal: PRESENT: abdominal pain Genitourinary: PRESENT: difficulty urinating Musculoskeletal: ABSENT: joint swelling Integumentary: ABSENT: rash, wounds Neurological: PRESENT: weakness - mild dementia, other. ABSENT: abnormal gait, abnormal speech, confusion, dizziness, focal weakness, syncope Psychiatric: ABSENT: anxiety, depression, homidical ideation, suicidal ideation Endocrine: ABSENT: cold intolerance, heat intolerance, polydipsia, polyuria Hematologic/Lymphatic: ABSENT: easy bleeding, easy bruising Physical Exam Vital Signs: Temp Pulse Resp BP Pulse Ox 114 H 21 H 113/60 99 11/08/16 12:20 11/08/16 15:01 11/08/16 15:00 11/08/16 15:01 Intake & Output 11/07/16 11/08/16 11/09/16 06:59 06:59 06:59 Output Total 200 Balance -200 Weight 68.039 kg General appearance: PRESENT: no acute distress, thin, well-developed, well- nourished Head exam: PRESENT: atraumatic, normocephalic Eye exam: PRESENT: conjunctiva pale Ear exam: PRESENT: normal external ear exam Mouth exam: PRESENT: moist, tongue midline Neck exam: ABSENT: carotid bruit, JVD, lymphadenopathy, thyromegaly Respiratory exam: PRESENT: clear to auscultation mikael. ABSENT: rales, rhonchi, wheezes Cardiovascular exam: PRESENT: RRR. ABSENT: diastolic murmur, rubs, systolic murmur Pulses: PRESENT: normal dorsalis pedis pul Vascular exam: PRESENT: normal capillary refill GI/Abdominal exam: PRESENT: normal bowel sounds, soft. ABSENT: distended, guarding, mass, organolmegaly, rebound, tenderness Rectal exam: PRESENT: deferred Extremities exam: PRESENT: full ROM. ABSENT: calf tenderness, clubbing, pedal edema Musculoskeletal exam: PRESENT: full ROM, normal inspection Neurological exam: PRESENT: alert, awake, oriented to person, oriented to place , oriented to situation, CN II-XII grossly intact. ABSENT: motor sensory deficit Psychiatric exam: PRESENT: appropriate affect Skin exam: PRESENT: dry, intact, warm. ABSENT: cyanosis, rash Results Laboratory Results: 11/08/16 12:42 11/08/16 12:42 11/08/16 11/08/16 11/08/16 12:42 12:42 12:42 WBC 6.8 RBC 3.23 L Hgb 9.7 L Hct 29.5 L MCV 92 MCH 30.1 MCHC 32.9 RDW 12.3 Plt Count 180 Seg Neutrophils % Not Reportable Lymphocytes % Not Reportable Monocytes % Not Reportable Eosinophils % Not Reportable Basophils % Not Reportable Absolute Neutrophils Not Reportable Absolute Lymphocytes Not Reportable Absolute Monocytes Not Reportable Absolute Eosinophils Not Reportable Absolute Basophils Not Reportable Sodium 131.5 L Potassium 4.2 Chloride 99 Carbon Dioxide 20 L Anion Gap 13 BUN 25 H Creatinine 0.94 Est GFR ( Amer) > 60 Est GFR (Non-Af Amer) > 60 Glucose 165 H Calcium 8.7 Magnesium 1.9 Total Bilirubin 0.6 AST 22 ALT 26 Alkaline Phosphatase 71 Total Protein 5.1 L Albumin 2.4 L Urine Color Urine Appearance Urine pH Ur Specific [place] Urine Protein Urine Glucose (UA) Urine Ketones Urine Blood Urine Nitrite Ur Leukocyte Esterase Urine WBC (Auto) Urine RBC (Auto) 11/08/16 13:40 WBC RBC Hgb Hct MCV MCH MCHC RDW Plt Count Seg Neutrophils % Lymphocytes % Monocytes % Eosinophils % Basophils % Absolute Neutrophils Absolute Lymphocytes Absolute Monocytes Absolute Eosinophils Absolute Basophils Sodium Potassium Chloride Carbon Dioxide Anion Gap BUN Creatinine Est GFR ( Amer) Est GFR (Non-Af Amer) Glucose Calcium Magnesium Total Bilirubin AST ALT Alkaline Phosphatase Total Protein Albumin Urine Color YELLOW Urine Appearance CLEAR Urine pH 6.0 Ur Specific [place] 1.026 Urine Protein 100 H Urine Glucose (UA) >=500 H Urine Ketones TRACE H Urine Blood NEGATIVE Urine Nitrite NEGATIVE Ur Leukocyte Esterase NEGATIVE Urine WBC (Auto) 2 Urine RBC (Auto) 1 11/08/16 11/08/16 12:42 12:42 Creatine Kinase 31 L CK-MB (CK-2) 0.79 Troponin I < 0.012 Impressions: Chest X-Ray 11/08/16 13:06 IMPRESSION: NO ACUTE CARDIOPULMONARY PROCESS IDENTIFIED. STABLE SMALL RIGHT PLEURAL EFFUSION WITH PLEURX CATHETER IN PLACE. Assessment & Plan - Diagnosis (1) Hypotension Qualifiers: Hypotension type: unspecified hypotension type Qualified Code(s): I95.9 - Hypotension, unspecified Is this a current diagnosis for this admission?: YesPlan: IV fluid replacement and hold diltiazem (2) Small cell lung cancer Qualifiers: Laterality: right Qualified Code(s): C34.91 - Malignant neoplasm of unspecified part of right bronchus or lung Is this a current diagnosis for this admission?: Yes (3) Mild dehydration Is this a current diagnosis for this admission?: YesPlan: Patient will be rehydrated with IV fluids (4) Pleural effusion Is this a current diagnosis for this admission?: YesPlan: Patient has pleurx catheter on the right - Time Time Spent: 50 to 70 Minutes Critical Time spent with patient: 25-34 minutes Medications reviewed and adjusted accordingly: Yes Anticipated discharge: Home with Homehealth
[2016-11-08] MEDS: NORMAL SALINE 1000 ML 1,000 ML IV PRN ×2 (16:05→23:25)
[2016-11-08] MEDS: MAGNESIUM OXIDE 400 MG TABLET PO SCH (18:16)
[2016-11-08] MEDS: DOCUSATE SODIUM 100 MG CAPSULE PO SCH (18:17)
[2016-11-08] MEDS: TAMSULOSIN HCL 0.4 MG CAP.SR.24H PO SCH (18:17)
--- NOTE | 2016-11-08 21:13 | EKG REPORT ---
SEVERITY:- ABNORMAL ECG - SINUS RHYTHM VENTRICULAR PREMATURE COMPLEX PROBABLE LEFT ATRIAL ABNORMALITY RIGHT BUNDLE BRANCH BLOCK : Confirmed by: Jenniffer Adams 08-Nov-2016 21:13:10
[2016-11-08] MEDS: FAMOTIDINE 20 MG TABLET PO SCH (21:24)
[2016-11-08] MEDS: HEPARIN SOD (PORCINE) 5,000 UNIT/ML 1 ML SYRINGE SUBCUT SCH (21:24)
[2016-11-08] MEDS: OXYCODONE-ACETAMINOPHEN 5-325 MG TABLET PO PRN (23:25)
[2016-11-09 05:43] LABS: ANION GAP 6 (5-19); BLOOD UREA NITROGEN 19 mg/dL (7-20); CARBON DIOXIDE 23 mmol/L (22-30); CHLORIDE 104 mmol/L (98-107); CREATININE RESULT 0.84 mg/dL (0.52-1.25); GLUCOSE 61 mg/dL (75-110); POTASSIUM 3.8 mmol/L (3.6-5.0); SODIUM 133.3 mmol/L (137-145)
[2016-11-09] MEDS: MAGNESIUM OXIDE 400 MG TABLET PO SCH ×2 (05:46→18:55)
[2016-11-09] MEDS: HEPARIN SOD (PORCINE) 5,000 UNIT/ML 1 ML SYRINGE SUBCUT SCH ×3 (05:46→21:02)
[2016-11-09] MEDS: GLIMEPIRIDE 1 MG TABLET PO SCH (08:19)
[2016-11-09] MEDS: DOCUSATE SODIUM 100 MG CAPSULE PO SCH ×2 (09:32→18:55)
[2016-11-09] MEDS: FAMOTIDINE 20 MG TABLET PO SCH ×2 (09:32→21:02)
[2016-11-09] MEDS: ASPIRIN 81 MG TABLET, CHEWABLE PO SCH (09:32)
[2016-11-09] MEDS: MEGESTROL ACETATE SUSP 400 MG/10 ML UDCUP PO SCH (09:33)
[2016-11-09] MEDS ORDERED: MEGESTROL ACETATE 400 MG PO SCH (10:00)
[2016-11-09] MEDS ORDERED: DILTIAZEM HCL 30 MG TABLET PO ONE (10:00)
--- NOTE | 2016-11-09 10:04 | EKG REPORT ---
SEVERITY:- ABNORMAL ECG - SINUS TACHYCARDIA PAIRED VENTRICULAR PREMATURE COMPLEXES RBBB AND LAFB APCs : Confirmed by: Jenniffer Adams 09-Nov-2016 10:03:51
[2016-11-09] MEDS ORDERED: NORMAL SALINE 500 ML IV PRN (10:56)
[2016-11-09] MEDS ORDERED: MORPHINE SULFATE 10 MG/ML INJ IV ONE (10:58)
--- NOTE | 2016-11-09 10:58 | Physician Advisory Note ---
Physician Advisor ProgressNote .: [facility] to the [facility], I have reviewed the medical record for this patient. Physician Advisor Statement: Nice job making this pt Outpt Obs to start for hypotension/volume depletion & dysrrhythmia, given unclear whether or not he would respond quickly to tx & be able to go home today. Possible documentation opportunities if attending agrees: 1. "Med necessity" - if you find pt clinically not sufficiently stable for safe d/c today, please document continued concerns (persistent tachycardia, ? still volume depleted, ___=not back to baseline ....?) & then may consider change to Inpt status. 2. "hyponatremia, likely due to ____" - acute or chronic? due to CA or intravasc volume depletion or ...? 3. "acute metabolic acidosis, likely due to ____, resolved" 4. "underweight with protein-calorie malnutrition [state mild, mod, or severe] with BMI __, ____[?wt loss, ?appetite loss, ]" [if possible, give specifics on intake, wt loss, loss of SQ fat & muscle mass, diminished hand department coordinator strength, & clinical importance such as (A) nutritional assessment ordered, (B) modified diet or supplements ordered, (C) additional labs ordered, (D) prolonged wound healing time, (E) delayed infxn clearance] 5. "urinary retention, acute" 6. "dysrrhythmia - episodes VTach during Silvestre placement in ED" - any sx w/this ? Any recurrence? As always, if concerned about any unstable VS or abnormal labs, please comment on them - what bad things they might indicate, why they concern you - & note what doing about them. Please also document each day the potential clinical problems you are concerned could occur if pt not kept in hospital for tx at this time. (These points are oropeza - if present in each note, attending's status decision should be sufficiently supported.) Discussion: 71yo male w/ chronic co-morbidities including small cell lung CA w/persistent malignant pleural effusion requiring Pleurx catheter drainage, s/p 1 cycle chemo , w/poor po intake + 10# wt loss over 2wks, HTN, HLD, DM-2, AVR, mild dementia - presented 5/29PM to ED w/weakness, hypotension as low as 70/60 range at home , anorexia, fatigue, wt loss, HSU, SOB, cough, abd pain, dehydration, weakness, unable to urinate (+) BP 85/57 in ED w/HR 114, RR20, sat 96% RA, distended bladder w/dark urine seen once catheterized (U/A w/tr ketones, >500 glc, (+)pro), WBC 6.8, HGb 9.7, Na 131.5, bicarb 20, BUN 25, Cr 0.94, alb 2.4, runs of VT during Silvestre placement Attending ordered discontinuation of diltiazem, IVF @125, I/Os, tele monitoring , q4h VS, daily wts, O2, while continuing Flomax. Status: Medicare pt appropriately brought in as Outpt Obs for hypotension/volume depletion & dysrrhythmia, electrolyte disturbances. Since arrival, although sBP is now >100, Na is a little better, & acidosis appears resolved, pt still persistently tacycardic 90s-100s, w/tachypnea to 28 & 24 at times, still hyponatremic. Today's attending has ordered re-start of diltiazem, f/u labs. If attending believes that continued tx & monitoring in inpatient hospital setting for a 2nd MN is medically reasonable & necessary to protect pt's health , safety, & medical condition, please document continued clinical concerns that make a 2nd MN necessary, & may then be appropriate to change to Inpt status. Thanks for your help with documentation accuracy/specificity improvement! Amanda Thayer MD [facility] Physician Advisor, Fellow of Hospital Medicine
[2016-11-09 11:14] LABS: HEMATOCRIT 27.1 % (37.9-51.0); HEMOGLOBIN 8.9 g/dL (13.5-17.0); HGB HCT DIFFERENCE -0.4; MEAN CORPUSCULAR HEMOGLOBIN 29.9 pg (27.0-33.4); MEAN CORPUSCULAR HGB CONC 32.9 g/dL (32.0-36.0); MEAN CORPUSCULAR VOLUME 91 fl (80-97); RED BLOOD COUNT 2.98 10^6/uL (4.35-5.55); RED CELL DISTRIBUTION WIDTH 12.2 % (11.5-14.0); WHITE BLOOD COUNT 11.4 10^3/uL (4.0-10.5)
[2016-11-09] MEDS ORDERED: MINERAL OIL ENEMA 133 ML PR ONE (11:30)
[2016-11-09 11:32] LABS: ANION GAP 6 (5-19); BLOOD UREA NITROGEN 16 mg/dL (7-20); CALCIUM 8.1 mg/dL (8.4-10.2); CARBON DIOXIDE 25 mmol/L (22-30); CHLORIDE 103 mmol/L (98-107); CREATININE RESULT 0.88 mg/dL (0.52-1.25); GLUCOSE 139 mg/dL (75-110); MAGNESIUM 1.6 mg/dL (1.6-2.3); POTASSIUM 3.7 mmol/L (3.6-5.0); SODIUM 133.6 mmol/L (137-145)
[2016-11-09] MEDS: DILTIAZEM HCL 30 MG TABLET PO SCH ×2 (11:56→18:55)
[2016-11-09] MEDS: LACTULOSE SYRUP 20 GM/30 ML UDCUP PO SCH ×2 (11:56→13:23)
[2016-11-09 12:14] LABS: PATH REVIEW PATHOLOGIST REVIEWED
[2016-11-09] MEDS: OXYCODONE-ACETAMINOPHEN 5-325 MG TABLET PO PRN ×2 (13:23→18:54)
--- NOTE | 2016-11-09 15:22 | PROGRESS NOTE E ---
Progress Note NAME: ARIANA LOVE : 1945 AGE: 71Y DATE: 11/09/2016 ROOM: 334 SUBJECTIVE: The patient was seen earlier today on rounds. Had been notified by nursing staff that the patient's heart rate was increasing into the 120s to 130s but it appeared to be sinus rhythm. EKG was reflective of this. Saw the patient with his family present who are active in the patient's care. According to the patient, he states that his symptoms have resolved, however, the patient is notably grimacing. When asked, the patient does admit to having some abdominal pain. The patient also is asymptomatic of his tachycardia as well. The patient denies any knowledge of having irregular heartbeat. It appears that the patient's Cardizem had actually been held due to the hypertension that he had upon presentation. According to the family, the patient has had very little oral intake since diagnosis and has actually received additional IV fluids in Dr. Colindres's office as well. According to grandson, the patient has had minimal output from his PleurX catheter which could be attributed to his dehydration. Also it appears the patient has not had any bowel movement according to the family in more than 2 weeks. The patient does not voice any other concerns at this time. REVIEW OF SYSTEMS: Rest of the review of systems is negative. MEDICATIONS: Have been reviewed. PHYSICAL EXAMINATION: GENERAL: The patient is a 71-year-old male who is awake, alert, and oriented to person, place, time, and situation. He is verbal, conversational, and does not appear to be in any acute distress. VITAL SIGNS: Temperature 98.2, pulse 115, respirations 20, blood pressure 118/58, oxygen saturation is 97% on room air. SKIN: Warm and dry. No rash. Not diaphoretic. HEENT: Pupils equal, round, reactive to light and accommodation. Conjunctivae are pale. There is no JVD. CARDIOVASCULAR: Heart is regular with no murmur or rub. CHEST: Clear, symmetrical, unlabored. ABDOMEN: Soft, nontender. No area of focal tenderness. It is nondistended. Hypoactive bowel sounds. BACK: No CVA tenderness or sacral edema. EXTREMITIES: No clubbing, cyanosis, or edema. PSYCHIATRIC: Appropriate affect and pleasant mood. DIAGNOSTICS: Lab values are as follows: Hematology obtained on 11/09/2016: WBCs are 11.4, hemoglobin is 8.9, hematocrit is 27.1, platelet count is 178,000. Chemistry obtained on 11/09/2016: Sodium is 133, potassium 3.7, chloride is 103, carbon dioxide 25, BUN 16, creatinine 0.88, glucose 139, calcium 8.1, magnesium is 1.6. IMPRESSION AND PLAN: 1. SINUS TACHYCARDIA. Do believe this is multifocal including the patient's dehydration as well as his missed dose of Cardizem. The patient's blood pressures have been a little labile. Will go ahead and give fast acting Cardizem now and bolus the patient 0.5 L. Given these findings, we will transfer to [facility] for more acute management. 2. DEHYDRATION. This is secondary to poor oral intake. Uncertain if this is the patient's underlying disease process or due to the chemotherapy. Have discussed this with the daughter. Will liberalize the patient's diet and also encourage supplements with each tray. The patient is also on Megace. Will continue this. 3. BENIGN PROSTATIC HYPERPLASIA. Will continue patient's home medications. 4. CONSTIPATION. The patient has no symptoms of actual obstruction but given the severity of these symptoms, will treat with lactulose as well as enema and follow. 5. LUNG CANCER. Family has requested Dr. Colindres to follow him while inpatient. Will consult for such. 6. DIABETES MELLITUS TYPE 2. Glucose has been in a good range. Will continue sliding scale coverage and once again will attempt to liberalize the diet. Hopefully it will increase the patient's oral intake. DISPOSITION: The patient is a FULL CODE; however, given the patient's poor oral intake and desire not to be hospitalized, will consult palliative management for input. Time spent on this followup including assessment, plan, physical examination, patient education, family meeting, and review of records is 35 minutes. DICTATING PHYSICIAN: MARYSE NAQVI NP [id number] PHY#: [id number] ID: [id number] JOB#: [id number] ACCT: [id number] cc: > MTDD
--- NOTE | 2016-11-09 16:44 | CONSULTATION REPORT E ---
Consultation Report NAME: ARIANA LOVE : 1945 AGE: 71Y DATE: 11/09/2016 334 A TO: TAYLER IVAN M.D. FROM: ESTER DODSON M.D. Requesting Physician HISTORY OF PRESENT ILLNESS: The patient is a 71-year-old man who recently presented with recurrent pleural effusion. He currently has Pleurx catheter in place. Cytology said to be consistent with small cell, possibly lung cancer. He was started on chemotherapy with carboplatin and etoposide. His last cycle was given about 2 weeks ago. The draining from the Pleurx catheter has declined. He was admitted with hypertension. He was seen at his bedside today with his son present, who states that he was doing relatively well over the weekend, however, he was hypertensive and he was brought to the emergency room. He had been hydrated since he was admitted. He states that he feels well. PHYSICAL EXAMINATION: GENERAL: On exam, he is an elderly man. He is not acutely ill looking. He appeared frail. VITAL SIGNS: His pulse was about 91 per minute. ABDOMEN: Soft. Liver and spleen are palpably enlarged. LUNGS: He has good air entry bilaterally. EXTREMITIES: Lower extremities with no edema. DIAGNOSTIC TESTS: His labs: White count is 6.8, hemoglobin is 9.7, T-cell count is 180. BUN 25. Creatinine 0.9. Liver function tests: Within normal limits. IMPRESSION AND PLAN: The patient is a 71-year-old with neuroendocrine tumor, positive cytology. He is about 2 weeks out from his chemotherapy. He is anemic. He was started on Procrit in the office, 20,000 units subcutaneously weekly. He might benefit from a dose while he is in house. His main complaint now is constipation. He may not be eating as well. He felt very fatigued. His next cycle of chemotherapy is not due for another 2 weeks. In the interim, just managing his symptoms will be optimal. I will plan on seeing him back in the office following his discharge if he otherwise remains clinically stable. I thank you for this consultation and allowing me to be part of his care. DICTATING PHYSICIAN: TAYLER IVAN M.D. [id number] PHY#: [id number] ID: [id number] JOB#: [id number] ACCT: [id number] cc:TAYLER IVAN M.D. >
[2016-11-09] MEDS ORDERED: (PENDING PHARMACY ID) (Diltiazem Hcl [Diltiazem 24hr Cd] 180 MG) PO SCH (18:00)
[2016-11-09] MEDS: TAMSULOSIN HCL 0.4 MG CAP.SR.24H PO SCH (18:56)
[2016-11-09] MEDS: DILTIAZEM HCL 180 MG CAPSULE.CR PO SCH (21:02)
[2016-11-10] MEDS: NORMAL SALINE 1000 ML 1,000 ML IV PRN (02:37)
[2016-11-10] MEDS: HEPARIN SOD (PORCINE) 5,000 UNIT/ML 1 ML SYRINGE SUBCUT SCH ×3 (05:28→21:52)
[2016-11-10] MEDS: MAGNESIUM OXIDE 400 MG TABLET PO SCH ×2 (05:28→18:04)
[2016-11-10] MEDS ORDERED: NORMAL SALINE 1000 ML 1,000 ML IV PRN (06:42)
--- NOTE | 2016-11-10 07:09 | PROGRESS NOTE E ---
Progress Note NAME: ARIANA LOVE : 1945 AGE: 71Y DATE: 11/10/2016 ROOM: [facility] SUBJECTIVE: The patient is seen in bed this morning. He is awake, alert and quite pleasant. The patient's grandson is at the bedside; however, he is in a deep sleep. According to the patient, he feels quite well this morning and the patient does appear much more comfortable than when evaluated yesterday. The patient states that he has had bowel movements and his heart rate has improved. Blood pressures are in a good range. The patient was seen by Dr. Colindres, his oncologist yesterday who has advised for the patient to follow up in her office and that his next round of chemo is not for another 2 weeks. In the meantime, recommend symptom management. The patient states that he does not have much of an appetite this morning in spite of Megace, but clinically the patient does appear improved in comparison to yesterday. REVIEW OF SYSTEMS: The rest of review of systems is negative. MEDICATIONS: Medications have been reviewed. OBJECTIVE: GENERAL: The patient is a 71-year-old male who is awake, alert and oriented to person, place, time and situation. He is verbal, conversational, and does not appear to be in acute distress. VITAL SIGNS: As follows: Temperature 98.3, pulse 98, respirations 16, blood pressure 125/55, oxygen saturation 99% on room air. SKIN: Warm and dry. No rash. Not diaphoretic. HEENT: Pupils are equal, round and reactive to light and accommodation. Conjunctivae are pale. There is no JVD. CARDIOVASCULAR SYSTEM: Heart is regular. There is no murmur or rub. CHEST: Clear, symmetrical and unlabored. Pleurx drain is place. ABDOMEN: Soft, nontender, nondistended. BACK: No CVA tenderness or sacral edema. EXTREMITIES: No clubbing, cyanosis, or edema. PSYCHIATRIC: Appropriate affect, pleasant mood. DIAGNOSTICS: Lab values are as follows: 1. Hematology obtained on 11/09/2016: WBC 11.4, hemoglobin 7.9, hematocrit 27.1, platelet count 178,000. 2. Chemistry obtained on 11/09/2016: Sodium 133, potassium 3.7, chloride 103, carbon dioxide 25, BUN 16, creatinine 0.88, glucose 139, calcium 8.1, magnesium 1.6. IMPRESSION AND PLAN: 1. DEHYDRATION. This is secondary to the patient's poor oral intake, underlying disease process, chemotherapy. The patient has had a significant effusion in the past which is minimal at this time further suggesting dehydration. I have liberalized the patient's diet, removed any dietary restrictions. Have also encouraged Megace. Uncertain if this is due to underlying disease process or due to chemotherapy. I have consulted palliative care to help set goals for this patient given this cycle has started. 2. SINUS TACHYCARDIA. This is most likely multifocal due to dehydration as well as his held dose of Cardizem due to his hypotension. Blood pressures are much improved. He has responded well. Heart rate is in a good range. 3. HYPOTENSION. This is secondary to the patient's dehydration, much improved. 4. BPH. We will continue home medications. 5. CONSTIPATION. This has improved with lactulose as well as enemas. 6. LUNG CANCER. Do appreciate Dr. Colindres's input with this. 7. DIABETES MELLITUS TYPE 2. Glucose has been in a good range. Therefore, diet was liberalized. 8. PLEURAL EFFUSION. This is due to the patient's CA. We will repeat chest x-ray in the a.m. to follow this up. I feel that this will once again increase with the patient's hydration. DISPOSITION: The patient is currently a FULL CODE. Pending patient's symptomatology and diagnostic findings, we will re-evaluate in the a.m. TIME SPENT: Time spent on this follow up including assessment, plan, physical examination, patient education, review of records was 25 minutes. DICTATING PHYSICIAN: MARYSE NAQVI NP [id number] [id number] PHY#: [id number] ID: [id number] JOB#: [id number] ACCT: [id number] cc: >
[2016-11-10] MEDS: GLIMEPIRIDE 1 MG TABLET PO SCH (08:44)
[2016-11-10] MEDS: DOCUSATE SODIUM 100 MG CAPSULE PO SCH ×2 (09:59→18:04)
[2016-11-10] MEDS: FAMOTIDINE 20 MG TABLET PO SCH ×2 (09:59→21:52)
[2016-11-10] MEDS: ASPIRIN 81 MG TABLET, CHEWABLE PO SCH (09:59)
[2016-11-10] MEDS: MEGESTROL ACETATE SUSP 400 MG/10 ML UDCUP PO SCH (14:05)
[2016-11-10] MEDS: TAMSULOSIN HCL 0.4 MG CAP.SR.24H PO SCH (18:04)
[2016-11-10] MEDS: DILTIAZEM HCL 180 MG CAPSULE.CR PO SCH (21:52)
[2016-11-11 06:00] LABS: HEMATOCRIT 28.8 % (37.9-51.0); HEMOGLOBIN 9.4 g/dL (13.5-17.0); HGB HCT DIFFERENCE -0.6; MEAN CORPUSCULAR HEMOGLOBIN 29.8 pg (27.0-33.4); MEAN CORPUSCULAR HGB CONC 32.8 g/dL (32.0-36.0); MEAN CORPUSCULAR VOLUME 91 fl (80-97); RED BLOOD COUNT 3.17 10^6/uL (4.35-5.55); RED CELL DISTRIBUTION WIDTH 12.4 % (11.5-14.0); WHITE BLOOD COUNT 20.3 10^3/uL (4.0-10.5)
[2016-11-11] MEDS: MAGNESIUM OXIDE 400 MG TABLET PO SCH ×2 (06:01→17:39)
[2016-11-11] MEDS: HEPARIN SOD (PORCINE) 5,000 UNIT/ML 1 ML SYRINGE SUBCUT SCH ×3 (06:01→21:45)
[2016-11-11 06:18] LABS: ANION GAP 10 (5-19); BLOOD UREA NITROGEN 7 mg/dL (7-20); CALCIUM 8.5 mg/dL (8.4-10.2); CARBON DIOXIDE 25 mmol/L (22-30); CHLORIDE 102 mmol/L (98-107); CREATININE RESULT 0.69 mg/dL (0.52-1.25); GLUCOSE 116 mg/dL (75-110); MAGNESIUM 1.5 mg/dL (1.6-2.3); POTASSIUM 3.6 mmol/L (3.6-5.0); SODIUM 136.6 mmol/L (137-145)
--- NOTE | 2016-11-11 07:58 | RADIOLOGY REPORT (SQ) ---
EXAM DESCRIPTION: CHEST PA/LAT COMPLETED DATE/TIME: 11/11/2016 7:45 am REASON FOR STUDY: FU effusion COMPARISON: Chest x-ray 11/08/2016, 10/17/2016. CT chest 10/28/2016. EXAM PARAMETERS: NUMBER OF VIEWS: two views TECHNIQUE: Digital Frontal and Lateral radiographic views of the chest acquired. RADIATION DOSE: NA LIMITATIONS: none FINDINGS: LUNGS AND PLEURA: There is trace right-sided pleural fluid. Mild bibasilar atelectasis. No pneumothorax. MEDIASTINUM AND HILAR STRUCTURES: No masses or contour abnormalities. HEART AND VASCULAR STRUCTURES: The heart is upper normal limit in size. No overt vascular congestion . BONES: No acute findings. HARDWARE: There is a right-sided chest tube. Sternotomy wires and cardiac valve prosthesis are noted . IMPRESSION: Trace right pleural fluid. Mild bibasilar atelectasis. TECHNICAL DOCUMENTATION: JOB ID: [id number] [employer]- All Rights Reserved
[2016-11-11] MEDS: GLIMEPIRIDE 1 MG TABLET PO SCH (08:55)
[2016-11-11] MEDS: MEGESTROL ACETATE SUSP 400 MG/10 ML UDCUP PO SCH (10:19)
[2016-11-11] MEDS: FAMOTIDINE 20 MG TABLET PO SCH ×2 (10:19→21:45)
[2016-11-11] MEDS: ASPIRIN 81 MG TABLET, CHEWABLE PO SCH (10:19)
[2016-11-11] MEDS: DOCUSATE SODIUM 100 MG CAPSULE PO SCH ×2 (10:19→17:39)
[2016-11-11] MEDS ORDERED: HALOPERIDOL 2 MG TABLET PO PRN (10:53)
--- NOTE | 2016-11-11 11:29 | PROGRESS NOTE E ---
Progress Note NAME: ARIANA LOVE : 1945 AGE: 71Y DATE: 11/11/2016 ROOM: 334 SUBJECTIVE: The patient is currently lying in bed. Apparently, he did become agitated overnight. The patient is still not taking orals. Did discuss this with the grandson who was present at the bedside. Plan has been made to discontinue IV fluids and see if the patient can maintain his own hydration. The patient is agreeable to having the Silvestre removed. The patient had no episodes of vomiting nor diarrhea, he just is not interested in foods and the patient does not voice any other concerns at this time. REVIEW OF SYSTEMS: The rest of review of systems is negative. MEDICATIONS: Medications have been reviewed. OBJECTIVE: GENERAL: The patient is a 71-year-old, male who is awake, alert and oriented to person, place, and time, but he easily goes back to sleep. He does not appear to be in acute distress. VITAL SIGNS: As follows: Temperature 98.7, pulse 93, respirations 20, blood pressure 131/66, oxygen saturation 100% on room air. SKIN: Skin is pale, dry. No rash. Not diaphoretic. HEENT: Pupils are equal, round and reactive to light and accommodation. Conjunctivae are pink. There is no JVD. CARDIOVASCULAR SYSTEM: Heart is regular. There is no murmur or rub. CHEST: Clear, symmetrical and unlabored. ABDOMEN: Soft, nontender, nondistended. Bowel sounds are present. BACK: No CVA tenderness or sacral edema. EXTREMITIES: No clubbing, cyanosis, or edema. GENITOURINARY: Silvestre is draining clear yellow urine. DIAGNOSTICS: 1. Hematology obtained on 11/11/2016: WBC 20.3, hemoglobin 9.4, hematocrit 28.8, platelet count is 249,000. 2. Chemistry obtained on 11/11/2016: Sodium 136, potassium 3.6, chloride 102, carbon dioxide 25, BUN 7, creatinine 0.69, glucose 116, calcium 8.5, magnesium 1.5. 3. Chest x-ray obtained on 11/11/2016: Reveal a trace effusion. IMPRESSION AND PLAN: 1. DEHYDRATION. This is due to poor oral intake. It appears that the patient did not have much intake prior to even starting chemotherapy, so most likely this will not improve as this may be the underlying disease process. Will continue Megace. Consult dietary. I have liberalized the patient's diet, removed any dietary restrictions. The patient is currently awaiting palliative care consultation. 2. SINUS TACHYCARDIA, MULTIFOCAL DUE TO DEHYDRATION WELL A HELD DOSE OF MEDICATION. This has all been resumed. Heart rate and blood pressure are in a much better range. 3. HYPOTENSION DUE TO DEHYDRATION. Much improved. 4. BPH. Continue home medications. Will discontinue the patient's Silvestre. BladderScan if needed. 5. CONSTIPATION. This improved with lactulose as well as enemas. 6. NEUROENDOCRINE LUNG CANCER. Do appreciate Dr. Colindres's input with this. 7. DIABETES MELLITUS TYPE 2. Glucoses have been decent. Will discontinue Amaryl though due to the patient's poor oral intake. 8. PLEURAL EFFUSION. Does look slightly increased in comparison to admission; however, this is just volume resuscitation. We will defer draining again for now as the patient is not respiratory compromised. 9. LEUKOCYTOSIS. Called Dr. Colindres's office. It appears that he got a dose of Neupogen last on Tuesday. Most likely this is a spike of this. DISPOSITION: The patient is currently still a FULL CODE. Pending the patient's symptomatology, diagnostic findings will re-evaluate in the a.m. for possible discharge, currently awaiting palliative input. TIME SPENT: Time spent on this follow up including assessment, plan, physical examination, patient education, review of records, family meeting was 25 minutes. DICTATING PHYSICIAN: MARYSE NAQVI NP [id number] [id number] PHY#: [id number] ID: [id number] JOB#: [id number] ACCT: [id number] cc: >
--- NOTE | 2016-11-11 12:57 | Palliative Consultation Report ---
Consultation From:: [facility] HPI: Appreciate Palliative care consult for this 71 year old gentleman who has been admitted for dehydration, weakness and hypotension. He is being treated for small cell lung cancer per Dr. Colindres and apparently had his first chemo treatment a few weeks ago and was discharged from the hospital October 29. Son reports that patient is scheduled for next chemo next week with Dr. Colindres . Son states his weakness and loss of appetite was happening before the chemo and has gotten worse, in spite of Megace at 400mg daily for many weeks. Mr. Yang also has signs of early dementia as reported by his son. He has pleurex catheter for draining of pleural effusion, but son states it has not been draining more sasha n a few ml recently. Mr. Yang is asleep at time of visit and son states he has been restless and not sleeping well at night. He did not awaken while I was talking with son and I did not disturb. In addition to the symptoms mentioned, son states patient has had constipation and he was told to give him Citrate Magnesia. I discussed using more gentle laxatives daily, such as Senna or Milk of Magnesia. We discussed possible increase in dose of Megace for appetite and I reviewed other meds used to stimualate appetite such as dexamethasone, Periactin and Marinol, along with the potential side effects of each. Code status was discussed with patients son, but he states they continue with full code status as it is patients wish. I did elaborate about the use of ventilator and the problems they may encounter. Son did not want to discuss further. Palliative care services at home were offered, if PCP or Dr. Colindres requests and patient/ family feel would be helpful. Plan per son is to take patient back home and he will continue to care for him there. He has two sisters who live out of state and help with decision making. Onset: Last week Onset/Duration: Persistent Quality of Pain: No pain Associated Symptoms: Weakness Past Medical History(Consults) - General Home Medications: Aspirin [Aspirin 81 mg Chewable Tablet] 81 mg PO Q6AM 11/08/16 Diltiazem HCl [Diltiazem 24Hr Cd] 180 mg PO QPM 11/08/16 Glimepiride [Amaryl 1 mg Tablet] 1 mg PO WBRKFST 11/08/16 Magnesium Oxide [Mag-Ox 400 mg Tablet] 400 mg PO Q12A 11/08/16 Megestrol Acetate [Megace] 400 mg PO WBRKFST 11/08/16 Ondansetron HCl [Zofran 8 mg Tablet] 8 mg PO Q8 11/08/16 Tamsulosin HCl [Flomax 0.4 mg Cap.sr] 0.4 mg PO QPM 11/08/16 Allergies/Adverse Reactions: No Known Allergies Allergy (Verified 10/14/16 16:02) - Social History Lives with: Family Family History: CAD Parental Family History Reviewed: No Children Family History Reviewed: No Sibling(s) Family History Reviewed.: No Smoking Status: Former Smoker Last Time Smoked: 10 years Frequency of Alcohol Use: None Hx Recreational Drug Use: No Drugs: None Hx Prescription Drug Abuse: No - Past Medical History Cardiac Medical History: Reports: Hx Hypercholesterolemia, Hx Hypertension - meds x yrs, Hx Heart Murmur Denies: Hx Coronary Artery Disease, Hx Heart Attack Pulmonary Medical History: Denies: Hx Asthma, Hx Bronchitis, Hx COPD, Hx Pneumonia Neurological Medical History: Denies: Hx Cerebrovascular Accident, Hx Seizures Endocrine Medical History: Reports: Hx Diabetes Mellitus Type 2. Denies: Hx Diabetes Mellitus Type 1 Renal/ Medical History: Denies: Hx Peritoneal Dialysis Malignancy Medical History: Reports Hx Lung Cancer, Reports Hx Skin Cancer GI Medical History: Reports: None Musculoskeltal Medical History: Denies Hx Arthritis Skin Medical History: Reports None Psychiatric Medical History: Reports: Hx Dementia Denies: Hx Depression Traumatic Medical History: Reports: None Infectious Medical History: Reports: None Hematology: Denies: Anemia - Surgical History Past Surgical History: Reports: Hx Cardiac Surgery - valve replacement, Hx Carotid Endarterectomy, Hx Tonsillectomy, Hx Valve Replacement - Status post aortic valve replacement with bioprosthetic valve Review of systems ROS unobtainable: other - atient sleeping, brief review per son and discussed in HPI Ojective:Exam Vital Signs: Temp Pulse Resp BP Pulse Ox 98.7 F 93 20 131/66 H 100 11/11/16 07:26 11/11/16 07:26 11/11/16 07:26 11/11/16 07:26 11/11/16 07:26 Intake & Output 11/10/16 11/11/16 11/12/16 06:59 06:59 06:59 Intake Total 3020 1280 Output Total 8023 2320 Balance 1595 -3470 Weight 66.9 kg 67.9 kg - General General Appearance: Sleeping/easily aroused In distress: None - Respiratory Respiratory Status: No respiratory distress - Genitourinary Inspection: Other - Silvestre catheter to BSD, draining large amount light yellow urine - Skin Skin Temperature: Warm Skin Moisture: Dry Skin Color: Pale Objective-Diagnostic Laboratory: 11/11/16 05:16 11/11/16 05:16 11/11/16 11/11/16 05:16 05:16 WBC 20.3 H RBC 3.17 L Hgb 9.4 L Hct 28.8 L MCV 91 MCH 29.8 MCHC 32.8 RDW 12.4 Plt Count 249 Sodium 136.6 L Potassium 3.6 Chloride 102 Carbon Dioxide 25 Anion Gap 10 BUN 7 Creatinine 0.69 Est GFR ( Amer) > 60 Est GFR (Non-Af Amer) > 60 Glucose 116 H Calcium 8.5 Magnesium 1.5 L Plan and Recommendation Plan and Recommendation: As discussed above, Home Palliative Care services offered if requested. Discussed code status and ventilatory support with son, but he staes full code is what Mr. Yang has requested and they do not want to change status. Encouraged him to talk with sisters about furture decisions for the patient as disease progresses. he said his sister makes the decisons. I gave him my card with cell number and told him I would be happy to talk with his sisters at any time. Recommend increasing Megace to 800mg daily for optimum appetite stimulation , discussed potential side effects of DVT with son. Recommend reinforcing to son the use of daily senna or Milk of Magnesia for prevention of constipation rather than using Citrate Magnesia for constipation of many day duration. Also, will such little PO intake, not to expect BM often. Discussed increase liquids and fiber in diet if possible. Son states patient is not having much pain, but is restless. May respond to Lorazapam at hs to help sleep. Will follow next week if still inpatient., will be happy to follow at home. - Time Spent with Patient Time spent with patient: 15 to 30 Minutes Time: 15 min with patient/son 15 min chart review
[2016-11-11] MEDS: TAMSULOSIN HCL 0.4 MG CAP.SR.24H PO SCH (17:39)
[2016-11-11] MEDS: DILTIAZEM HCL 180 MG CAPSULE.CR PO SCH (21:45)
[2016-11-12] MEDS: HEPARIN SOD (PORCINE) 5,000 UNIT/ML 1 ML SYRINGE SUBCUT SCH ×3 (06:07→21:36)
[2016-11-12] MEDS: MAGNESIUM OXIDE 400 MG TABLET PO SCH ×2 (06:07→18:25)
[2016-11-12] MEDS: ASPIRIN 81 MG TABLET, CHEWABLE PO SCH (10:21)
[2016-11-12] MEDS: FAMOTIDINE 20 MG TABLET PO SCH ×2 (10:21→21:35)
[2016-11-12] MEDS: DOCUSATE SODIUM 100 MG CAPSULE PO SCH ×2 (10:21→18:25)
[2016-11-12] MEDS: MEGESTROL ACETATE SUSP 400 MG/10 ML UDCUP PO SCH (10:22)
--- NOTE | 2016-11-12 15:18 | PROGRESS NOTE E ---
Progress Note NAME: ARINAA LOVE : 1945 AGE: 71Y DATE: 11/12/2016 ROOM: 334 SUBJECTIVE: The patient is lying in bed. He was seen earlier today on rounds. I saw the patient with his son as well as his daughter via electronic modem. Discussed in detail the patient's poor appetite, dehydration and intermittent tachycardias. The patient admits that he has no appetite whatsoever and does not want to eat. The patient will only eat if prompted by family; otherwise, the patient will just lay there and will not eat. The patient has been voiding since his Silvestre has been removed. After much discussion with family and patient, they have elected to proceed with a feeding tube placement for alternative nutrition given that the patient is not taking any p.o. at this time. I have discussed this with them and will continue supportive measures until the PEG tube can be placed. REVIEW OF SYSTEMS: The rest of review of systems is negative. MEDICATIONS: Medications have been reviewed. OBJECTIVE: GENERAL: The patient is a 71-year-old male who is awake, alert. He is oriented to person, place, time and situation. He is a little delayed. He is frail appearing and chronically ill-appearing. He does not appear to be in any distress. VITAL SIGNS: Temperature 98.3, pulse 90, respirations 19, blood pressure 111/56, oxygen saturation 100% on room air. SKIN: Skin is warm and dry. No rash. Not diaphoretic. HEENT: Pupils are equal, round and reactive to light and accommodation. Conjunctivae are pink. There is no JVP. CARDIOVASCULAR SYSTEM: Heart is regular. There is no murmur or rub. CHEST: Clear, symmetrical and unlabored. ABDOMEN: Soft, nontender, nondistended. BACK: No CVA tenderness or sacral edema. EXTREMITIES: No clubbing, cyanosis, or edema. PSYCHIATRIC: Appropriate affect, pleasant mood. The patient is just very fatigued. DIAGNOSTICS: Hematology obtained on 11/11/2016: WBC 20.3, hemoglobin 9.4, hematocrit 28.8, platelet count is 249,000. Chemistry obtained on 11/11/2016: Sodium 136, potassium 3.6, chloride 102, carbon dioxide 25, BUN 7, creatinine 0.69, glucose 116, calcium 8.5, magnesium 1.5. IMPRESSION AND PLAN: 1. DEHYDRATION AND ANOREXIA. This is due to patient's poor appetite. Megace has been maximized. Will continue to encourage oral intake and will resume fluids at a lower rate. Will consult GI for PEG placement. 2. SINUS TACHYCARDIA, MULTIFOCAL MOSTLY LIKELY DUE TO DEHYDRATION. This has improved; however, the patient has had some intermittent episodes during the evening especially when he is sleeping. Will discontinue the patient's Haldol, continue Cardizem and monitor closely. 3. HYPOTENSION DUE TO DEHYDRATION. Resolved. 4. BPH. Continue home medications. The patient has tolerated bladder scan and has not needed re-catheterization. 5. CONSTIPATION. This improved with lactulose as well as enemas. 6. DIABETES MELLITUS TYPE 2. Glucoses have been in a good range. Have discontinued basal medications due to poor p.o. intake. 7. PLEURAL EFFUSION. Just slightly increased in comparison to admission; however, this is just volume resuscitation. Will defer draining for now given the patient is not respiratory compromised. 9. LEUKOCYTOSIS. The patient received a dose of Neupogen on Tuesday. No evidence of infectious process. DISPOSITION: The patient is a FULL CODE. Pending the patient's symptomatology and diagnostic findings will re-evaluate in the a.m. TIME SPENT: Time spent on this follow up including assessment, plan, physical examination, patient education, and family meeting is 45 minutes. DICTATING PHYSICIAN: MARYSE NAQVI NP [id number] PHY#: [id number] ID: [id number] JOB#: [id number] ACCT: [id number] cc: >
--- NOTE | 2016-11-12 17:55 | PDOC CONSULTATION ---
Consultation Consult Date: 11/12/16 Attending physician:: ELLA DUMONT Consult reason:: Inanition and failure to thrive secondary to stage IV lung cancer. History of Present Illness Admission Date/PCP: 11/09/16 17:04 ADRIANA LEHMAN Patient complains of: Anorexia and weight loss. History of Present Illness: Patient is a 71-year-old male with confirmed diagnosis of stage IV lung cancer with a Pleurex catheter in the right thoracic cavity for malignant pleural effusion. Patient has had chemotherapy, and has had a poor appetite prior to and post his chemotherapy regimen. The patient consumes approximately 50% of his meals each day. Surgery consult has been requested to consider PEG insertion. Past Medical History Cardiac Medical History: Reports: Hyperlipidema, Hypertension - meds x yrs, Heart Murmur Denies: Coronary Artery Disease, Myocardial Infarction Pulmonary Medical History: Denies: Asthma, Bronchitis, Chronic Obstructive Pulmonary Disease (COPD), Pneumonia Neurological Medical History: Denies: Seizures Endocrine Medical History: Reports: Diabetes Mellitus Type 2 Denies: Diabetes Mellitus Type 1 Malignancy Medical History: Reports: Lung Cancer, Skin Cancer GI Medical History: Reports: None Musculoskeltal Medical History: Denies: Arthritis Skin Medical History: Reports: None Psychiatric Medical History: Reports: Dementia Denies: Depression Traumatic Medical History: Reports: None Hematology: Denies: Anemia Infectious Medical History: Reports: None Past Surgical History Past Surgical History: Reports: Carotid Endarterectomy, Tonsillectomy, Valve Replacement - Status post aortic valve replacement with bioprosthetic valve Social History Lives with: Family Smoking Status: Former Smoker Last Time Smoked: 10 years Frequency of Alcohol Use: None Hx Recreational Drug Use: No Drugs: None Hx Prescription Drug Abuse: No - Advance Directive Resuscitation Status: Full Code Family History Family History: CAD Parental Family History Reviewed: No - Not applicable Children Family History Reviewed: No - Not applicable Sibling(s) Family History Reviewed.: No - Not applicable Medication/Allergy Home Medications: Aspirin [Aspirin 81 mg Chewable Tablet] 81 mg PO Q6AM 11/08/16 Diltiazem HCl [Diltiazem 24Hr Cd] 180 mg PO QPM 11/08/16 Glimepiride [Amaryl 1 mg Tablet] 1 mg PO WBRKFST 11/08/16 Magnesium Oxide [Mag-Ox 400 mg Tablet] 400 mg PO Q12A 11/08/16 Megestrol Acetate [Megace] 400 mg PO WBRKFST 11/08/16 Ondansetron HCl [Zofran 8 mg Tablet] 8 mg PO Q8 11/08/16 Tamsulosin HCl [Flomax 0.4 mg Cap.sr] 0.4 mg PO QPM 11/08/16 Allergies/Adverse Reactions: No Known Allergies Allergy (Verified 10/14/16 16:02) Physical Exam Vital Signs: Temp Pulse Resp BP Pulse Ox 98.3 F 107 H 19 111/56 L 100 11/12/16 11:56 11/12/16 14:00 11/12/16 11:56 11/12/16 11:56 11/12/16 11:56 Intake & Output 11/11/16 11/12/16 11/13/16 06:59 06:59 06:59 Intake Total 1280 1123 10 Output Total 4750 1950 0 Balance -3470 -827 10 Weight 67.9 kg 66.5 kg GI/Abdominal exam: PRESENT: normal bowel sounds, soft. ABSENT: ascites, distended, guarding, mass, Don's sign, organolmegaly, rebound, tenderness Results Laboratory Results: 11/11/16 05:16 11/11/16 05:16 Impressions: Chest X-Ray 11/11/16 06:00 IMPRESSION: Trace right pleural fluid. Mild bibasilar atelectasis. Assessment & Plan - Diagnosis (2) Small cell lung cancer Qualifiers: Laterality: right Qualified Code(s): C34.91 - Malignant neoplasm of unspecified part of right bronchus or lung Is this a current diagnosis for this admission?: Yes - Plan Summary Plan Summary: I had a long discussion with the family regarding placement of a PEG tube for feeding. I explained that placing a feeding would not improve his quality of life, nor would it extend his lifespan. In fact, the glutamine in his feeding tube would also be feeding his tumor. I shared my personal story of dealing with terminal illnesses in my own family, particularly with my father dying of metastatic rectal cancer at age 70, and my mother dying from Alzheimer's, at age 74. However, I expressed my respect whatever decision he and his family would make. I will await their decision before proceeding.
[2016-11-12] MEDS: TAMSULOSIN HCL 0.4 MG CAP.SR.24H PO SCH (18:25)
[2016-11-12] MEDS: DILTIAZEM HCL 180 MG CAPSULE.CR PO SCH (21:35)
[2016-11-13] MEDS: HEPARIN SOD (PORCINE) 5,000 UNIT/ML 1 ML SYRINGE SUBCUT SCH ×3 (05:37→21:27)
[2016-11-13] MEDS: MAGNESIUM OXIDE 400 MG TABLET PO SCH ×2 (05:37→19:27)
[2016-11-13 06:14] LABS: ANION GAP 7 (5-19); BLOOD UREA NITROGEN 18 mg/dL (7-20); CALCIUM 8.4 mg/dL (8.4-10.2); CARBON DIOXIDE 24 mmol/L (22-30); CHLORIDE 103 mmol/L (98-107); CREATININE RESULT 0.82 mg/dL (0.52-1.25); GLUCOSE 151 mg/dL (75-110); HEMATOCRIT 27.6 % (37.9-51.0); HEMOGLOBIN 9.2 g/dL (13.5-17.0); MAGNESIUM 1.6 mg/dL (1.6-2.3); MEAN CORPUSCULAR HEMOGLOBIN 29.7 pg (27.0-33.4); MEAN CORPUSCULAR HGB CONC 33.4 g/dL (32.0-36.0); MEAN CORPUSCULAR VOLUME 89 fl (80-97); POTASSIUM 3.8 mmol/L (3.6-5.0); RED CELL DISTRIBUTION WIDTH 12.6 % (11.5-14.0); SODIUM 133.8 mmol/L (137-145); WHITE BLOOD COUNT 24.7 10^3/uL (4.0-10.5)
[2016-11-13] MEDS: DOCUSATE SODIUM 100 MG CAPSULE PO SCH ×2 (09:38→19:26)
[2016-11-13] MEDS: FAMOTIDINE 20 MG TABLET PO SCH ×2 (09:38→21:26)
[2016-11-13] MEDS: ASPIRIN 81 MG TABLET, CHEWABLE PO SCH (09:38)
[2016-11-13] MEDS: MEGESTROL ACETATE SUSP 400 MG/10 ML UDCUP PO SCH (09:38)
--- NOTE | 2016-11-13 15:48 | PROGRESS NOTE E ---
Progress Note NAME: ARIANA LOVE : 1945 AGE: 71Y DATE: 11/13/2016 ROOM: 334 SUBJECTIVE: The patient was seen earlier today on rounds. The patient was awake and was eating for his son. However, apparently the patient got significantly confused and combative overnight, suggestive of sundowners. The patient has been afebrile. His blood pressures have been in a decent range. The patient was seen by Dr. Sam with Surgery and a long discussion was had with him and the family regarding PEG placement. The patient and family are to meet with Dr. Sam today with a decision and no other concerns are voiced at this time. REVIEW OF SYSTEMS: The rest of the review of systems is negative. MEDICATIONS: Medications have been reviewed. OBJECTIVE: GENERAL: The patient is a 71-year-old male who is awake, alert. He is oriented to person, place, but not fully oriented to situation and he is very forgetful. VITAL SIGNS: Temperature is 98.6, pulse is 99, respirations 16, blood pressure is 129/63, oxygen saturation is 100% on room air. SKIN: Warm and dry. There is no rash. He is not diaphoretic. HEENT: Pupils equal, round and reactive to light and accommodation. Conjunctivae are pale. NECK: There is no JVP. CARDIOVASCULAR: Heart is regular. There is no murmur or rub. CHEST: Clear. Symmetrical. Unlabored. ABDOMEN: Soft, nontender, and nondistended. BACK: No CVA tenderness or sacral edema. EXTREMITIES: No clubbing, cyanosis, or edema. PSYCHIATRIC: Very pleasant mood. DIAGNOSTIC DATA: Lab values are as follows: Hematology obtained on 11/13/2016: WBC's are 24.7; hemoglobin is 9.2; hematocrit is 27.6; platelet count is 361,000. Chemistries obtained on 11/13/2016: Sodium is 133, potassium is 3.8, chloride is 103, carbon dioxide 24, BUN 18, creatinine is 0.82, glucose 151, calcium of 8.4, magnesium is 1.6. IMPRESSION AND PLAN: 1. DEHYDRATION AND ANOREXIA. THIS IS DUE TO THE PATIENT'S POOR APPETITE. Megace has been maximized and Remeron was added at bedtime. Will continue to encourage p.o. intake. I have resumed fluids at a lower rate. The family has discussed PEG placement with Surgery today. 2. HYPOTENSION. THIS IS DUE TO DEHYDRATION. THIS IS RESOLVED. 3. SINUS TACHYCARDIA. MOST LIKELY DUE TO DEHYDRATION. Will continue Cardizem. 4. BENIGN PROSTATIC HYPERPLASIA. Continue home medications. The patient has tolerated bladder scans and has not needed to be re-catheterized. 5. CONSTIPATION. This improved with lactulose as well as enemas. 6. DIABETES MELLITUS TYPE 2. GLUCOSE IS IN A GOOD RANGE. Have discontinued basal medications due to the patient's poor oral intake. 7. PLEURAL EFFUSION. THE PATIENT IS CURRENTLY ASYMPTOMATIC. Will defer draining. 8. LEUKOCYTOSIS. The patient received a dose of Neupogen on Tuesday and this correlates with this. DISPOSITION: The patient is a FULL CODE. Pending the patient's symptomatology and diagnostic findings, as well as family meeting with the surgeon, will reevaluate in the a.m. TIME: Time spent on this followup including assessment, plan, physical examination, patient education, and family meeting was 25 minutes. DICTATING PHYSICIAN: MARYSE NAQVI NP [id number] PHY#: [id number] ID: [id number] JOB#: [id number] ACCT: [id number] cc: >
[2016-11-13] MEDS: TAMSULOSIN HCL 0.4 MG CAP.SR.24H PO SCH (19:27)
[2016-11-13] MEDS: DILTIAZEM HCL 180 MG CAPSULE.CR PO SCH (21:26)
[2016-11-13] MEDS: MIRTAZAPINE 15 MG TABLET PO SCH (21:26)
--- NOTE | 2016-11-13 22:08 | PDOC PROGRESS REPORT ---
Subjective Progress Note for:: 11/13/16 Subjective:: The patient is lying in bed without complaints. Physical Exam Vital Signs: Temp Pulse Resp BP Pulse Ox 98.0 F 94 20 124/62 99 11/13/16 20:51 11/13/16 20:51 11/13/16 20:51 11/13/16 20:51 11/13/16 20:51 Intake & Output 11/12/16 11/13/16 11/14/16 06:59 06:59 06:59 Intake Total 1123 1280 Output Total 1950 0 0 Balance -827 1280 0 Weight 66.5 kg 62.6 kg GI/Abdominal exam: PRESENT: normal bowel sounds, soft. ABSENT: tenderness Results Laboratory Results: 11/13/16 05:44 11/13/16 05:44 11/13/16 11/13/16 05:44 05:44 WBC 24.7 H RBC 3.10 L Hgb 9.2 L Hct 27.6 L MCV 89 MCH 29.7 MCHC 33.4 RDW 12.6 Plt Count 361 Sodium 133.8 L Potassium 3.8 Chloride 103 Carbon Dioxide 24 Anion Gap 7 BUN 18 Creatinine 0.82 Est GFR ( Amer) > 60 Est GFR (Non-Af Amer) > 60 Glucose 151 H Calcium 8.4 Magnesium 1.6 11/11/16 13:45 Catheterized Urine Urine Culture - Final NO GROWTH 2 DAYS Impressions: Chest X-Ray 11/11/16 06:00 IMPRESSION: Trace right pleural fluid. Mild bibasilar atelectasis. Assessment & Plan - Diagnosis (2) Small cell lung cancer Qualifiers: Laterality: right Qualified Code(s): C34.91 - Malignant neoplasm of unspecified part of right bronchus or lung Is this a current diagnosis for this admission?: Yes - Plan Summary Plan Summary: After long discussion with the patient's daughter, the family would prefer to proceed with PEG placement. We will schedule the procedure on Tuesday with the oncoming surgeon, or perform the PEG myself on Tuesday.
[2016-11-14] MEDS: MAGNESIUM OXIDE 400 MG TABLET PO SCH ×2 (06:26→18:05)
[2016-11-14] MEDS: HEPARIN SOD (PORCINE) 5,000 UNIT/ML 1 ML SYRINGE SUBCUT SCH ×3 (06:27→21:49)
[2016-11-14] MEDS: MEGESTROL ACETATE SUSP 400 MG/10 ML UDCUP PO SCH (10:25)
[2016-11-14] MEDS: FAMOTIDINE 20 MG TABLET PO SCH ×2 (10:25→21:49)
[2016-11-14] MEDS: ASPIRIN 81 MG TABLET, CHEWABLE PO SCH (10:25)
[2016-11-14] MEDS: DOCUSATE SODIUM 100 MG CAPSULE PO SCH ×2 (10:27→18:05)
[2016-11-14] MEDS ORDERED: DEXTROSE 50%-WATER 25 GM/50 ML DISP.SYRIN IV PRN ×2 (13:09)
[2016-11-14] MEDS ORDERED: DEXTROSE 40% GEL 15 GM TUBE PO PRN ×2 (13:09)
[2016-11-14] MEDS ORDERED: GLUCAGON,HUMAN RECOMB 1 MG INJ SUBCUT PRN (13:09)
--- NOTE | 2016-11-14 13:12 | PDOC PROGRESS REPORT ---
Subjective Progress Note for:: 11/14/16 Physical Exam Vital Signs: Temp Pulse Resp BP Pulse Ox 97.4 F 108 H 18 126/67 H 97 11/14/16 07:53 11/14/16 07:53 11/14/16 07:53 11/14/16 07:53 11/14/16 07:53 Intake & Output 11/13/16 11/14/16 11/15/16 06:59 06:59 06:59 Intake Total 1280 110 Output Total 0 0 Balance 1280 110 Weight 62.6 kg 61.9 kg Respiratory exam: PRESENT: clear to auscultation mikael Cardiovascular exam: PRESENT: RRR GI/Abdominal exam: PRESENT: normal bowel sounds, soft. ABSENT: rebound, tenderness Results Laboratory Results: 11/13/16 05:44 11/13/16 05:44 11/11/16 13:45 Catheterized Urine Urine Culture - Final NO GROWTH 2 DAYS Impressions: Chest X-Ray 11/11/16 06:00 IMPRESSION: Trace right pleural fluid. Mild bibasilar atelectasis. Assessment & Plan - Diagnosis (2) Small cell lung cancer Qualifiers: Laterality: right Qualified Code(s): C34.91 - Malignant neoplasm of unspecified part of right bronchus or lung Is this a current diagnosis for this admission?: Yes
[2016-11-14] MEDS ORDERED: LORAZEPAM 0.5 MG TABLET PO PRN (15:03)
--- NOTE | 2016-11-14 16:13 | PROGRESS NOTE E ---
Progress Note NAME: ARIANA LOVE : 1945 AGE: 71Y DATE: 11/14/2016 ROOM: 334 SUBJECTIVE: The patient is lying in bed. He is quite sleepy this morning. The patient was just seen by the surgeon and I followed behind him. The patient is to have PEG placement tomorrow for supplement feedings. Family is in agreeance to this plan. The patient does have restlessness overnight, very classical sundowners. The patient's intake is still very minimal orally and there has been no reported episodes of vomiting or diarrhea. The patient does not voice any other concerns at this time. REVIEW OF SYSTEMS: The rest of the review of systems is negative. MEDICATIONS: Medications have been reviewed. OBJECTIVE: GENERAL: The patient is a 71-year-old male who is awake, alert. He is oriented to person, place; however, he has no recollection of me on a daily basis. He does not recall the surgeon from the day before. He does not appear to be in any acute distress. VITAL SIGNS: Temperature is 97.4, pulse is 108, respirations 18, blood pressure is 126/67, oxygen saturation is 97% on room air. SKIN: Warm and dry. No rash. He is not diaphoretic. Quite pale. HEENT: Pupils are equal, round, and reactive to light and accommodation. Conjunctivae are pale. NECK: There is no JVD. CARDIOVASCULAR: Heart is regular, is slightly tachycardic, no rub. CHEST: Diminished. Symmetrical. Unlabored. ABDOMEN: Soft, nontender, and nondistended. BACK: No CVA tenderness or sacral edema. EXTREMITIES: No clubbing, cyanosis, or edema. PSYCHIATRIC: Patient is demented. DIAGNOSTIC DATA: Lab values are as follows: Hematology obtained on 11/13/2016: WBC's are 24.7; hemoglobin is 9.2; hematocrit is 27.6; platelet count is 361,000. Chemistries obtained on 11/13/2016: Sodium is 133, potassium is 3.8, chloride is 103, carbon dioxide 24, BUN 18, creatinine is 0.82, glucose 151, calcium of 8.4, magnesium is 1.6. Microbiology: Blood cultures obtained on 11/11/2016 revealed no growth. Urine culture obtained on 11/11/2016 reveals no growth. IMPRESSION AND PLAN: 1. DEHYDRATION AND ANOREXIA; THIS IS DUE TO POOR APPETITE. THE PATIENT HAD A POOR APPETITE PRIOR TO STARTING CHEMOTHERAPY. Megace was maximized. Remeron was added at bedtime. Still try to encourage p.o. intake. Will resume fluids at a much lower rate to suffice until PEG placement in the a.m. with surgery. The family is adamant for this. 2. HYPOTENSION DUE TO DEHYDRATION IS RESOLVED. 3. SINUS TACHYCARDIA. MOST LIKELY WAS DUE DEHYDRATION. The patient continues on Cardizem. 4. BENIGN PROSTATIC HYPERPLASIA. Will continue home medication. The patient has not required re-catheterization. Continue Flomax. 5. CONSTIPATION. Improved with lactulose as well as enemas. 6. DIABETES MELLITUS TYPE 2. GLUCOSE HAS BEEN IN A GOOD RANGE. Have discontinued basal medications due to poor oral intake. 7. LEUKOCYTOSIS. The patient received the last dose of Neupogen on Tuesday and this rise in white count correlates with this. 8. PLEURAL EFFUSION. THE PATIENT IS CURRENTLY ASYMPTOMATIC. Have deferred draining. DISPOSITION: The patient is a FULL CODE. Pending the patient's symptomatology and diagnostic findings, will reevaluate in the a.m. TIME SPENT: Time spent on this followup including assessment, plan, physical examination, patient education, and speciality collaboration was 25 minutes. DICTATING PHYSICIAN: MARYSE NAQVI NP [id number] PHY#: [id number] ID: [id number] JOB#: [id number] ACCT: [id number] cc: >
[2016-11-14] MEDS: NORMAL SALINE 1000 ML 1,000 ML IV PRN (17:10)
[2016-11-14] MEDS: TAMSULOSIN HCL 0.4 MG CAP.SR.24H PO SCH (18:05)
[2016-11-14] MEDS: MIRTAZAPINE 15 MG TABLET PO SCH (21:49)
[2016-11-14] MEDS: DILTIAZEM HCL 180 MG CAPSULE.CR PO SCH (21:49)
[2016-11-15] MEDS: MAGNESIUM OXIDE 400 MG TABLET PO SCH ×2 (05:56→17:12)
[2016-11-15] MEDS: HEPARIN SOD (PORCINE) 5,000 UNIT/ML 1 ML SYRINGE SUBCUT SCH ×3 (05:56→21:30)
[2016-11-15 07:25] LABS: HEMATOCRIT 28.6 % (37.9-51.0); HEMOGLOBIN 9.5 g/dL (13.5-17.0); HGB HCT DIFFERENCE -0.1; MEAN CORPUSCULAR HEMOGLOBIN 30.3 pg (27.0-33.4); MEAN CORPUSCULAR HGB CONC 33.2 g/dL (32.0-36.0); MEAN CORPUSCULAR VOLUME 91 fl (80-97); RED BLOOD COUNT 3.14 10^6/uL (4.35-5.55); RED CELL DISTRIBUTION WIDTH 12.9 % (11.5-14.0); WHITE BLOOD COUNT 26.5 10^3/uL (4.0-10.5)
[2016-11-15 07:46] LABS: ANION GAP 10 (5-19); BLOOD UREA NITROGEN 20 mg/dL (7-20); CALCIUM 8.9 mg/dL (8.4-10.2); CARBON DIOXIDE 22 mmol/L (22-30); CHLORIDE 102 mmol/L (98-107); CREATININE RESULT 0.88 mg/dL (0.52-1.25); GLUCOSE 147 mg/dL (75-110); MAGNESIUM 1.6 mg/dL (1.6-2.3); POTASSIUM 4.7 mmol/L (3.6-5.0); SODIUM 134.2 mmol/L (137-145)
--- NOTE | 2016-11-15 08:37 | PROGRESS NOTE E ---
Progress Note NAME: ARIANA LOVE : 1945 AGE: 71Y DATE: 11/15/2016 ROOM: 334 SUBJECTIVE: The patient is currently lying in bed. He has been left n.p.o. overnight for feeding tube placement today with surgery. The patient rested a little better last night than he had in the past. Son is present at the bedside. He was asleep, however, I did awaken him. The patient has been afebrile. His blood pressures have been in a good range and no other concerns are voiced at this time. BRIEF HISTORY: The patient is a 71-year-old male with a past medical history of neuroendocrine lung mass status post chemotherapy with Dr. Colindres. The patient's sixth chemotherapy is due in about 10 days. The patient, however, was anoretic, with very little p.o. intake prior to beginning cancer treatment. However, he at this time has absolutely no appetite in spite of full dose Megace and Remeron. Therefore, after much discussion, the family has elected to proceed with PEG placement. The patient unfortunately has underlying dementia that has been exacerbated by sundowners while in the hospital. The patient is agreeable to almost everything that is presented in front of him, which I just think this is his personality. The patient has been afebrile. His blood pressures have improved. He came in hypotensive and dehydrated due to his limited oral intake. The patient was also noted to have significant urinary retention, however, this is improved with resuming his Flomax and bladder trials. The patient has been intermittently bladder scanned. He has not retained any urine. The patient is to go home at discharge, hopefully after the feeding tube is placed and he has received education and home health is in place. Although physical therapy has recommended SNF rehab, the patient cannot receive chemotherapy in that environment and, therefore, will return home with home health. He does have supportive family. REVIEW OF SYSTEMS: The rest of the review of systems is negative. MEDICATIONS: Medications have been reviewed. OBJECTIVE: GENERAL: The patient is a well-developed, frail appearing, 71-year-old male who is awake, alert. He is oriented to person and place. Not fully oriented to situation. He is a little delayed. Does not appear to be in acute distress. VITAL SIGNS: Temperature is 98.8, pulse is 94, respirations 20, blood pressure is 131/66, oxygen saturation is 97% on room air. SKIN: Pale. He is dry. No rash. He is not diaphoretic. HEENT: Pupils are equal, round, and reactive to light and accommodation. Conjunctivae are pale. NECK: There is no JVD. CARDIOVASCULAR: Heart is regular. There is no murmur or rub. CHEST: Clear. Symmetrical. Unlabored. ABDOMEN: Soft, nontender, and nondistended. BACK: No CVA tenderness or sacral edema. EXTREMITIES: No clubbing, cyanosis, or edema. PSYCHIATRIC: Very pleasant mood, demented. He has no memory of the day before. DIAGNOSTICS: Lab values are as follows: Hematology obtained on 11/15/2016 is pending. Chemistries obtained on 11/15/2016: Sodium is 134, potassium is 3.7, chloride is 102, carbon dioxide 22, BUN 20, creatinine is 0.88, glucose 147, calcium of 8.9, magnesium is 1.6. IMPRESSION AND PLAN: 1. ANOREXIA, DEHYDRATION, GENERAL [id number]. The patient has very poor appetite. Family and patient have elected to proceed with feeding tube placement in spite of his Megace and Remeron being maximized. Patient is currently n.p.o. I have consulted dietitian to aid in tube feeding recommendations. 2. HYPOTENSION. This was due to dehydration. This resolved with hydration. 3. SINUS TACHYCARDIA, MOST LIKELY DUE DEHYDRATION. The patient continues on Cardizem. 4. BENIGN PROSTATIC HYPERPLASIA. Will continue the patient's home medication of Flomax. He has not required recatheterization. 5. CONSTIPATION. Improved with cathartics. 6. DIABETES MELLITUS TYPE 2. Glucose has been in a good range. Have discontinued basal medications due to oral intake. 7. LEUKOCYTOSIS. The patient received last dose of Neupogen and his rise in white count correlates with this. 8. PLEURAL EFFUSION. Currently asymptomatic, therefore, have deferred draining at this time. Last chest x-ray was decent. DISPOSITION: The patient remains a FULL CODE. Pending the patient's symptomatology and diagnostic findings, will reevaluate in the a.m. for discharge. TIME SPENT: Time spent on this followup including assessment, plan, physical examination, patient education, as well as speciality collaboration and family meeting is 30 minutes. DICTATING PHYSICIAN: MARYSE NAQVI NP [id number] PHY#: [id number] ID: [id number] JOB#: [id number] ACCT: [id number] cc: >
[2016-11-15] MEDS: MEGESTROL ACETATE SUSP 400 MG/10 ML UDCUP PO SCH (09:51)
[2016-11-15] MEDS: FAMOTIDINE 20 MG TABLET PO SCH ×2 (09:51→21:30)
[2016-11-15] MEDS: ASPIRIN 81 MG TABLET, CHEWABLE PO SCH (09:51)
[2016-11-15] MEDS: DOCUSATE SODIUM 100 MG CAPSULE PO SCH ×2 (09:51→17:12)
[2016-11-15] MEDS ORDERED: NALOXONE HCL INJ/PF 0.4 MG/1 ML SDV ONE (11:05)
[2016-11-15] MEDS ORDERED: ONDANSETRON HCL INJ/PF 4 MG/2 ML SDV ONE (11:05)
[2016-11-15] MEDS ORDERED: GLYCOPYRROLATE INJ 0.4 MG/2 ML VIAL ONE (11:05)
[2016-11-15] MEDS ORDERED: GLUCAGON,HUMAN RECOMB 1 MG INJ ONE (11:06)
[2016-11-15] MEDS ORDERED: FLUMAZENIL INJ 0.5 MG/5 ML VIAL IV ONE (11:06)
[2016-11-15] MEDS ORDERED: EPINEPHRINE INJ 1 MG/10 ML DISP.SYRIN ONE (11:06)
[2016-11-15] MEDS: MIDAZOLAM 2 MG/2 ML INJ ONE ×3 (12:02→12:15)
[2016-11-15] MEDS: FENTANYL CITRATE INJ/PF 100 MCG/2 ML AMPUL ONE ×2 (12:04→12:20)
--- NOTE | 2016-11-15 13:28 | OPERATIVE REPORT E ---
Operative Report NAME: ARIANA LOVE : 1945 AGE: 71Y DATE OF SURGERY: 11/13/2016 ROOM: 334 PREOPERATIVE DIAGNOSIS: Dysphagia and inanition. POSTOPERATIVE DIAGNOSIS: Dysphagia and inanition. PROCEDURES: 1. Esophagogastroduodenoscopy. 2. Percutaneous endoscopic gastrostomy. SURGEON: KARELE SPAIN M.D. ANESTHESIA: IV sedation. COMPLICATIONS: None. ESTIMATED BLOOD LOSS: Minimal. DRAINS: None. TISSUE REMOVED OR ALTERED: None. SUMMARY OF PROCEDURE: After obtaining informed consent, the patient was placed in a semirecumbent position, oral mouthpiece inserted, hypopharynx anesthetized. Suitable site for placement of PEG was chosen on the anterior abdominal wall. The area of skin was clipped of hair. Surgical plan and surgical timeout were conducted. The flexible upper endoscope was advanced through the oropharynx down the esophagus through the stomach and into the duodenum. There were no significant pathologic findings. There was no evidence of tumor, stricture, bleeding, or gastric outlet problems. The suitable site for placement of the PEG was chosen patient's left subxiphoid area. The adjacent skin was prepped with Betadine and anesthetized with 1% lidocaine without epinephrine. Jelco needle and wire were threaded through the anterior abdominal wall and a wire threaded into the lumen of the stomach. Using the endoscope and snare, the wire was secured by the endoscopic snare. The snare, wire, and scope were all pulled out of the unit. A 20-Maori ENDOVIE pullout type PEG tube was placed over the wire and brought out through the anterior abdominal wall uneventfully. Appropriate bolster and connectors applied to the feeding tube. Because of the difficulty inserting the esophagoscope through the patient's hypopharynx, we did not repeat the upper endoscopy. We felt the operation was complete and there were no complications. Discharge orders provided. DICTATING PHYSICIAN: KARLEE SPAIN M.D. [id number] PHY#: [id number] ID: [id number] JOB#: [id number] ACCT: [id number] cc:KARLEE SPAIN M.D. > [facility]ERTaisha
[2016-11-15] MEDS ORDERED: TRAMADOL HCL 50 MG TABLET PO PRN (16:50)
[2016-11-15] MEDS: NORMAL SALINE 1000 ML 1,000 ML IV PRN (17:53)
[2016-11-15] MEDS: TAMSULOSIN HCL 0.4 MG CAP.SR.24H PO SCH (18:08)
[2016-11-15] MEDS: DILTIAZEM HCL 180 MG CAPSULE.CR PO SCH (21:29)
[2016-11-15] MEDS: MIRTAZAPINE 15 MG TABLET PO SCH (21:30)
[2016-11-16 05:48] LABS: HEMATOCRIT 29.6 % (37.9-51.0); HEMOGLOBIN 9.7 g/dL (13.5-17.0); HGB HCT DIFFERENCE -0.5; MEAN CORPUSCULAR HEMOGLOBIN 29.9 pg (27.0-33.4); MEAN CORPUSCULAR HGB CONC 32.7 g/dL (32.0-36.0); MEAN CORPUSCULAR VOLUME 91 fl (80-97); RED BLOOD COUNT 3.24 10^6/uL (4.35-5.55); RED CELL DISTRIBUTION WIDTH 13.1 % (11.5-14.0); WHITE BLOOD COUNT 25.2 10^3/uL (4.0-10.5)
[2016-11-16] MEDS: MAGNESIUM OXIDE 400 MG TABLET PO SCH ×2 (05:51→18:36)
[2016-11-16] MEDS: HEPARIN SOD (PORCINE) 5,000 UNIT/ML 1 ML SYRINGE SUBCUT SCH ×3 (05:51→21:53)
[2016-11-16 06:10] LABS: ALANINE AMINOTRANSFERASE 24 U/L (21-72); ALBUMIN 2.3 g/dL (3.5-5.0); ALKALINE PHOSPHATASE 68 U/L (38-126); ANION GAP 11 (5-19); ASPARTATE AMINO TRANSFERASE 14 U/L (17-59); BILIRUBIN,DIRECT 0.4 mg/dL (0.0-0.4); BILIRUBIN,TOTAL 0.6 mg/dL (0.2-1.3); BLOOD UREA NITROGEN 17 mg/dL (7-20); CALCIUM 8.8 mg/dL (8.4-10.2); CARBON DIOXIDE 22 mmol/L (22-30); CHLORIDE 102 mmol/L (98-107); CREATININE RESULT 0.77 mg/dL (0.52-1.25); GLUCOSE 136 mg/dL (75-110); MAGNESIUM 1.5 mg/dL (1.6-2.3); POTASSIUM 4.7 mmol/L (3.6-5.0); SODIUM 134.7 mmol/L (137-145); TOTAL PROTEIN 5.2 g/dL (6.3-8.2)
[2016-11-16 06:11] LABS: BAND NEUTROPHILS % (MANUAL) 4 % (3-5); EOSINOPHILS % (MANUAL) 0 % (0-6); TOTAL CELLS COUNTED 100
[2016-11-16 06:12] LABS: TOXIC GRANULATION 1+; TOXIC VACUOLATION PRESENT
[2016-11-16 06:14] LABS: POLYCHROMASIA 1+
[2016-11-16 06:15] LABS: OVALOCYTES SLIGHT; PLATELET CLUMPS PRESENT; POIKILOCYTOSIS SLIGHT; TARGET CELLS SLIGHT
[2016-11-16 06:19] LABS: BASOPHILS % (MANUAL) 0 % (0-2); LYMPHOCYTES % (MANUAL) 1 % (13-45)
[2016-11-16] MEDS: MEGESTROL ACETATE SUSP 400 MG/10 ML UDCUP PO SCH (09:19)
[2016-11-16] MEDS: FAMOTIDINE 20 MG TABLET PO SCH ×2 (09:19→21:52)
[2016-11-16] MEDS: DOCUSATE SODIUM 100 MG CAPSULE PO SCH ×2 (09:19→18:35)
[2016-11-16] MEDS: ASPIRIN 81 MG TABLET, CHEWABLE PO SCH (09:19)
[2016-11-16] MEDS: NORMAL SALINE 1000 ML 1,000 ML IV PRN (15:02)
--- NOTE | 2016-11-16 16:49 | PDOC PROGRESS REPORT ---
Subjective Progress Note for:: 11/16/16 Subjective:: Presently resting comfortably in bed. Patient was seen morning rounds. He remained confused to place and time. No family is presently at the bedside. Patient tells me he [place] from the park. He denies any pain or dyspnea at the present time. Review of systems is unobtainable due to mentation. Physical Exam Vital Signs: Temp Pulse Resp BP Pulse Ox 97.8 F 101 H 20 126/65 H 97 11/16/16 11:55 11/16/16 11:55 11/16/16 11:55 11/16/16 11:55 11/16/16 11:55 Intake & Output 11/15/16 11/16/16 11/17/16 06:59 06:59 06:59 Intake Total 345 1325 Output Total 0 0 0 Balance 345 1325 0 Weight 63.6 kg 62.2 kg General appearance: PRESENT: no acute distress, thin, well-developed Head exam: PRESENT: atraumatic, normocephalic Eye exam: PRESENT: conjunctiva pink, EOMI, PERRLA. ABSENT: scleral icterus Ear exam: PRESENT: normal external ear exam Mouth exam: PRESENT: moist, tongue midline Neck exam: ABSENT: carotid bruit, JVD, lymphadenopathy, thyromegaly Respiratory exam: PRESENT: clear to auscultation mikael, symmetrical, unlabored. ABSENT: rales, rhonchi, wheezes Cardiovascular exam: PRESENT: RRR. ABSENT: diastolic murmur, rubs, systolic murmur Pulses: PRESENT: normal dorsalis pedis pul Vascular exam: PRESENT: normal capillary refill GI/Abdominal exam: PRESENT: normal bowel sounds, soft. ABSENT: distended, guarding, mass, organolmegaly, rebound, tenderness Musculoskeletal exam: PRESENT: full ROM, normal inspection Neurological exam: PRESENT: alert, altered, oriented to person, CN II-XII grossly intact Psychiatric exam: PRESENT: flat affect Skin exam: PRESENT: dry, intact, warm. ABSENT: cyanosis, rash Results Laboratory Results: 11/16/16 05:26 11/16/16 05:26 11/16/16 11/16/16 05:26 05:26 WBC 25.2 H RBC 3.24 L Hgb 9.7 L Hct 29.6 L MCV 91 MCH 29.9 MCHC 32.7 RDW 13.1 Plt Count 675 H Seg Neutrophils % Not Reportable Lymphocytes % Not Reportable Monocytes % Not Reportable Eosinophils % Not Reportable Basophils % Not Reportable Absolute Neutrophils Not Reportable Absolute Lymphocytes Not Reportable Absolute Monocytes Not Reportable Absolute Eosinophils Not Reportable Absolute Basophils Not Reportable Sodium 134.7 L Potassium 4.7 Chloride 102 Carbon Dioxide 22 Anion Gap 11 BUN 17 Creatinine 0.77 Est GFR ( Amer) > 60 Est GFR (Non-Af Amer) > 60 Glucose 136 H Calcium 8.8 Magnesium 1.5 L Total Bilirubin 0.6 AST 14 L ALT 24 Alkaline Phosphatase 68 Total Protein 5.2 L Albumin 2.3 L 11/11/16 12:03 Blood Blood Culture - Final NO GROWTH IN 5 DAYS 11/11/16 10:29 Blood Blood Culture - Final NO GROWTH IN 5 DAYS Impressions: Chest X-Ray 11/11/16 06:00 IMPRESSION: Trace right pleural fluid. Mild bibasilar atelectasis. Assessment & Plan - Diagnosis (1) Hypotension Qualifiers: Hypotension type: unspecified hypotension type Qualified Code(s): I95.9 - Hypotension, unspecified Is this a current diagnosis for this admission?: YesPlan: IV fluid replacement has resolved this. 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 Colindres (3) Mild dehydration Is this a current diagnosis for this admission?: YesPlan: Resolved (4) Pleural effusion Is this a current diagnosis for this admission?: YesPlan: Patient has pleurx catheter on the right (5) Dementia Qualifiers: Dementia type: Alzheimer's disease Alzheimer's disease onset: unspecified onset Dementia behavioral disturbance: without behavioral disturbance Qualified Code(s): G30.9 - Alzheimer's disease, unspecified; F02.80 - Dementia in other diseases classified elsewhere without behavioral disturbance (6) Diabetes mellitus Qualifiers: Diabetes mellitus type: type 2 Diabetes mellitus complication status: with unspecified complications Diabetes mellitus intermodal dispatcher insulin use: without usp use Qualified Code(s): E11.8 - Type 2 diabetes mellitus with unspecified complications; Z79.4 - 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) use of insulin (7) H/O aortic valve replacement Is this a current diagnosis for this admission?: Yes (8) Protein-calorie malnutrition, moderate Is this a current diagnosis for this admission?: YesPlan: Patient's family requested a PEG tube for tube feedings and nutritional support - Time Time Spent with patient: 25-34 minutes Critical Time spent with patient: 15-24 minutes Medications reviewed and adjusted accordingly: Yes Anticipated discharge: Home with Homehealth Within: within 24 hours - Inpatient Certification Based on my medical assessment, after consideration of the patient's comorbidities, presenting symptoms, or acuity I expect that the services needed warrant INPATIENT care.: Yes
[2016-11-16] MEDS: TAMSULOSIN HCL 0.4 MG CAP.SR.24H PO SCH (18:35)
[2016-11-16] MEDS: MIRTAZAPINE 15 MG TABLET PO SCH (21:52)
[2016-11-16] MEDS: DILTIAZEM HCL 180 MG CAPSULE.CR PO SCH (21:57)
[2016-11-17] MEDS: HEPARIN SOD (PORCINE) 5,000 UNIT/ML 1 ML SYRINGE SUBCUT SCH (06:50)
[2016-11-17] MEDS: MAGNESIUM OXIDE 400 MG TABLET PO SCH (06:50)
[2016-11-17 08:56] VITALS: BP 129/66
[2016-11-17] MEDS: MEGESTROL ACETATE SUSP 400 MG/10 ML UDCUP PO SCH (09:55)
[2016-11-17] MEDS: DOCUSATE SODIUM 100 MG CAPSULE PO SCH (09:55)
[2016-11-17] MEDS: ASPIRIN 81 MG TABLET, CHEWABLE PO SCH (09:55)
[2016-11-17] MEDS: FAMOTIDINE 20 MG TABLET PO SCH (09:55)
--- NOTE | 2016-11-17 17:25 | PDOC DISCHARGE SUMMARY ---
General - Admit/Disc Date/PCP Admission Date/Primary Care Provider: 11/09/16 17:04 GAETANO LEHMAN-Soniya Discharge Date: 11/17/16 - Discharge Diagnosis (1) Hypotension Is this a current diagnosis for this admission?: YesSummary: Resolved with hydration (2) Small cell lung cancer Is this a current diagnosis for this admission?: YesSummary: Follow up with oncologist. Patient's family wish to continue treatment (3) Mild dehydration Is this a current diagnosis for this admission?: YesSummary: Resolved with IV hydration. PEG tube inserted at family's request to prevent further dehydration. (4) Pleural effusion Is this a current diagnosis for this admission?: YesSummary: Pleurx catheter on the right (5) Dementia Is this a current diagnosis for this admission?: YesSummary: Patient is at baseline. His 3 children are making his medical decisions for him (6) Diabetes mellitus Is this a current diagnosis for this admission?: YesSummary: Continue current medications (7) H/O aortic valve replacement Is this a current diagnosis for this admission?: Yes (8) Protein-calorie malnutrition, moderate Is this a current diagnosis for this admission?: YesSummary: Enteral feedings of glucerna 1.2 at 75 cc hr for hs continous feedings. - Additional Information Resuscitation Status: Full Code Discharge Activity: Activity As Tolerated, Balance Activity w/Rest Home Medications: Aspirin [Aspirin 81 mg Chewable Tablet] 81 mg PO Q6AM 11/08/16 Diltiazem HCl [Diltiazem 24Hr Cd] 180 mg PO QPM 11/08/16 Glimepiride [Amaryl 1 mg Tablet] 1 mg PO WBRKFST 11/08/16 Magnesium Oxide [Mag-Ox 400 mg Tablet] 400 mg PO Q12A 11/08/16 Megestrol Acetate [Megace] 400 mg PO WBRKFST 11/08/16 Ondansetron HCl [Zofran 8 mg Tablet] 8 mg PO Q8 11/08/16 Tamsulosin HCl [Flomax 0.4 mg Cap.sr] 0.4 mg PO QPM 11/08/16 Lorazepam [Ativan 0.5 mg Tablet] 0.5 mg PO HSP PRN #10 tablet 11/17/16 History of Present Illness Patient complains of: Low blood pressure and weakness History of Present Illness: ARIANA LOVE III is a 71 year old male who is known to our service after a recent hospital stay with a discharge on 10/29. This is a 71-year-old man with a recent diagnosis of small cell lung CA who presents to the emergency room with weakness, dehydration in the setting of hypotension with a blood pressure at home and 70/60 range. Patient was hypotensive on arrival to the emergency room (85/57) and tachycardic (114). He underwent one cycle of chemotherapy by Dr Colindres according to son. He has had no nausea or vomiting but has no appetite with very poor intake in the last 2 weeks. His weight is down 10 lbs in the last 2 weeks and he has become progressively weaker. He was discharged with a pleurx catheter to drain malignant pleural effusion which is not draining much according to his sons. Hospital Course Hospital Course: Patient was admitted to the hospitalist service on telemetry. He had discharge planning consult immediately with home needs. He has surgical therapy and occupational therapy consult as well. Palliative care was consulted and saw the patient discussed goals of care with his son. Son states that father wanted to remain full code and aggressive care. Discussed options of PEG tube placement for nutritional support. Patient family again wish to have this done. General surgery was consulted. On 11/14/2016, Dr. Gamboaar the patient to the OR and placed a PEG tube. Enteral feedings were started the next day and tolerated well by the patient. He has remained confused chart throughout his hospital stay. Family refused hospice care would like to go home with continuing home health care. He will be discharged home today. Physical Exam Vital Signs: Temp Pulse Resp BP Pulse Ox 98.0 F 94 18 129/66 H 99 11/17/16 11:31 11/17/16 11:31 11/17/16 11:31 11/17/16 11:31 11/17/16 11:31 Intake & Output 11/16/16 11/17/16 11/18/16 06:59 06:59 06:59 Intake Total 1325 2122 Output Total 0 0 Balance 1325 2122 Weight 62.2 kg 62.2 kg General appearance: PRESENT: no acute distress, thin, well-developed Head exam: PRESENT: atraumatic, normocephalic Eye exam: PRESENT: conjunctiva pink, EOMI, PERRLA. ABSENT: scleral icterus Ear exam: PRESENT: normal external ear exam Mouth exam: PRESENT: dry mucosa Neck exam: ABSENT: carotid bruit, JVD, lymphadenopathy, thyromegaly Respiratory exam: PRESENT: clear to auscultation mikael. ABSENT: rales, rhonchi, wheezes Cardiovascular exam: PRESENT: RRR. ABSENT: diastolic murmur, rubs, systolic murmur Pulses: PRESENT: normal dorsalis pedis pul Vascular exam: PRESENT: normal capillary refill GI/Abdominal exam: PRESENT: normal bowel sounds, soft. ABSENT: distended, guarding, mass, organolmegaly, rebound, tenderness Rectal exam: PRESENT: deferred Extremities exam: PRESENT: full ROM. ABSENT: calf tenderness, clubbing, pedal edema Musculoskeletal exam: PRESENT: full ROM Neurological exam: PRESENT: alert, altered, awake, oriented to person, CN II- XII grossly intact. ABSENT: motor sensory deficit Psychiatric exam: PRESENT: appropriate affect, normal mood. ABSENT: homicidal ideation, suicidal ideation Skin exam: PRESENT: dry, intact, warm. ABSENT: cyanosis, rash Results Laboratory Results: 11/16/16 05:26 11/16/16 05:26 Impressions: Chest X-Ray 11/11/16 06:00 IMPRESSION: Trace right pleural fluid. Mild bibasilar atelectasis. Qualifiers PATEINT BEING DISCHARGED WITH ANY OF THE FOLLOWING DIAGNOSIS?: No Plan Discharge Plan: Home with family, with home health Time Spent: Less than 30 Minutes
== END 2016-11-17 12:31 | disposition home health service (06) | DRG 641 ==
LOC: ER 12:17 → EH 15:07 → INTOOBSV 15:07 → EH 15:54 → UNDOADMIN 15:54 → 4S 17:53 → 3S 11-09 13:00 → OBSVTOIN 11-09 17:04
PROVIDERS: ADMIT Family Medicine; ATTEND Family Medicine
PROC: 3E0F73Z Introduction of Anti-inflammatory into Respiratory Tract, Via Natural or Artificial Opening (ICD-10-PCS; 2016-11-08)
PROC: 0DH63UZ Insertion of Feeding Device into Stomach, Percutaneous Approach (ICD-10-PCS; principal; 2016-11-13)
PROC: 3E0G76Z Introduction of Nutritional Substance into Upper GI, Via Natural or Artificial Opening (ICD-10-PCS; 2016-11-13)
DX: E86.0 Dehydration (principal); C34.91 Malignant neoplasm of unspecified part of right bronchus or lung; Z68.1 Body mass index [BMI] 19.9 or less, adult; E44.0 Moderate protein-calorie malnutrition; I95.9 Hypotension, unspecified; G30.9 Alzheimer's disease, unspecified; F02.80 Dementia in other diseases classified elsewhere, unspecified severity, without behavioral disturbance, psychotic disturbance, mood disturbance, and anxiety; E11.9 Type 2 diabetes mellitus without complications; I10 Essential (primary) hypertension; E78.5 Hyperlipidemia, unspecified; F03.90 Unspecified dementia, unspecified severity, without behavioral disturbance, psychotic disturbance, mood disturbance, and anxiety; E78.00 Pure hypercholesterolemia, unspecified; N40.0 Benign prostatic hyperplasia without lower urinary tract symptoms; K59.00 Constipation, unspecified; R00.0 Tachycardia, unspecified; Z51.5 Encounter for palliative care; Z95.2 Presence of prosthetic heart valve; Z79.4 Long term (current) use of insulin; Z85.828 Personal history of other malignant neoplasm of skin; Z87.891 Personal history of nicotine dependence; Z82.49 Family history of ischemic heart disease and other diseases of the circulatory system; Z80.0 Family history of malignant neoplasm of digestive organs
CPT/HCPCS: 36415; 43246; 51702; 71010; 71020; 80048; 80053; 81001; 82550; 82553; 83735; 84484; 85025; 85027; 85610; 87040; 87086; 93005; 93010; 96360; 99291; G8978-GP; G8979-GP; J0171; J1610; J1644; J2250; J2270; J2310; J2405; J3010; J3490; J7030; J7040

== ENCOUNTER → 2016-11-28 | Outpatient (CLI) | payer MEDICARE ==
--- NOTE | 2016-11-29 09:27 | RADIOLOGY REPORT (SQ) ---
EXAM DESCRIPTION: PET CT SKULL/THIGH COMPLETED DATE/TIME: 11/28/2016 11:47 pm REASON FOR STUDY: LUNG CANCER C34.90 MALIGNANT NEOPLASM OF UNSP PART OF UNSP BRONCHUS OR L COMPARISON: CT chest dated 10/28/2016 and 10/10/2016. RADIONUCLIDE AND DOSE: 12.0 mCi F18 FDG The route of agent administration: Intravenous FASTING BLOOD SUGAR: 211 mg/dl CONTRAST TYPE AND DOSE: No CT contrast given. TECHNIQUE: Blood glucose level was verified. Above dose of FDG was injected intravenously. 2-D seg mented attenuation correction images were obtained from the base of the skull to the midthighs. Nonc ontrast CT images were obtained for attenuation correction and fusion with emission images. CT image s were performed without oral or intravenous contrast and are not sensitive for parenchymal lesions. A series of overlapping emission PET images were obtained. Images reviewed and manipulated at [facility] work station by the radiologist. Images stored on PACS. LIMITATIONS: None. FINDINGS: HEAD AND NECK: No areas of abnormal metabolic activity in the soft tissues of the head and neck. CHEST: Chronic parenchymal scarring. Moderate right pleural effusion with right-sided pleural draina ge catheter. Abnormal activity along the pleural surface on the right side consistent with malignant pleural effusion and nodular pleural implants. Discrete masses are not clearly evident on CT images . Financial Risk Manager areas of activity with mean SUV values of 3.63, 4.0, 4416, and 4.45. Along the med iastinal pleural surface there are several more focal nodular areas of activity. Difficult to determ ine if these represent pleural nodules or metastases. 1 cm nodule in the upper mediastinum with mean SUV value 3.16. 1.1 cm nodule anterior to the right hilum with mean SUV value 3.09. 1.5 cm nodule posterior to the right hilum with mean SUV value 4.07. Indistinct confluent mass inferior to the rig ht hilum measuring 1.5 by 2.5 cm. Mean SUV value 4.79. ABDOMEN AND PELVIS: No areas of abnormal metabolic activity in the abdomen or pelvis. Expected physi ologic activity is present in the genitourinary system and bowel. PROXIMAL LOWER EXTREMITIES: No areas of abnormal metabolic activity in the soft tissues of the lower extremities. BONES: No abnormal metabolic activity in the visualized skeleton. ADDITIONAL CT FINDINGS: Gallstones. Gastrostomy tube in the stomach. No additional significant find ings on the noncontrast CT images. OTHER: No other significant findings. IMPRESSION: 1. MODERATE RIGHT PLEURAL EFFUSION WITH PLEURAL DRAINAGE CATHETER. ABNORMAL ACTIVITY ASSOCIATED WITH THE PLEURAL EFFUSION AND PLEURAL NODULARITY SECONDARY TO KNOWN MALIGNANT PLEURAL EFFUSION. AREAS OF NODULARITY PRESUMABLY DUE TO PLEURAL IMPLANTS ALTHOUGH SOME OF THE AREAS ALONG THE MEDIASTINAL PLEUR AL SURFACE COULD BE DUE TO ADENOPATHY. 2. NO OTHER AREAS OF ABNORMAL ACTIVITY ON THE PET SCAN. INCIDENTAL CT FINDINGS ABOVE. TECHNICAL DOCUMENTATION: JOB ID: [id number] [employer]- All Rights Reserved
== END ==
LOC: RAD 21:40
PROVIDERS: ATTEND Internal Medicine Medical Oncology
DX: C34.90 Malignant neoplasm of unspecified part of unspecified bronchus or lung (principal); J91.0 Malignant pleural effusion
CPT/HCPCS: 78815; A9552